=== PATIENT | female | born 1990 | race Caucasian/White ===

== ENCOUNTER 2020-04-17 15:45 | Outpatient (REF) | payer OTHER, SELFPAY | END 2020-04-17 15:46 | disposition home or self-care (01) | LOC: HO.LAB 15:45 | PROVIDERS: Visit Provider Internal Medicine | DX: Z20.822 Contact with and (suspected) exposure to COVID-19 (principal) | CPT/HCPCS: 36415; C9803; U0003; U0005 ==

== ENCOUNTER → 2020-07-17 15:33 | Outpatient (BNVA) | payer OTHER, SELFPAY | PROVIDERS: PCP Internal Medicine; Referring Provider Internal Medicine; Visit Provider Physician Assistant ==

== ENCOUNTER → 2020-07-24 11:20 | Outpatient (BNVA) | payer OTHER, SELFPAY | PROVIDERS: PCP Internal Medicine; Visit Provider Surgery ==

== ENCOUNTER 2020-08-02 15:25 | Outpatient (REF) | payer OTHER, SELFPAY ==
[2020-08-03 14:17] LABS: H Pylori Breath Test NOT DETECTED (NOT DETECTED)
== END 2020-08-02 15:26 | disposition home or self-care (01) ==
LOC: HO.LNP 15:25
PROVIDERS: Surgery; PCP Internal Medicine; Visit Provider Physician Assistant
DX: E66.01 Morbid (severe) obesity due to excess calories (principal); F32.9 Major depressive disorder, single episode, unspecified; F41.9 Anxiety disorder, unspecified; M79.7 Fibromyalgia
CPT/HCPCS: 83013; 99211

== ENCOUNTER 2020-08-03 09:40 | Outpatient (REF) | payer OTHER, SELFPAY ==
--- NOTE | ~2020-08-03 | XR_ITS ---
EXAMINATION: XR CHEST CLINICAL INFORMATION: Morbid/severe obesity. COMPARISON: None TECHNIQUE: 2 views of the chest were obtained. FINDINGS: No significant abnormality is noted involving the heart, lungs, mediastinum, bony thorax or soft tissues. XR/XR chest 2V IMPRESSION: Unremarkable chest examination.
[2020-08-03 10:59] LABS: MANUAL DIFF FLAG NO
[2020-08-03 11:02] LABS: Basophils Percent Auto 0.4 % (0-2); Eosinophils Absolute Auto 0.1 X10*3/uL (0.0-0.4); Eosinophils Percent Auto 0.9 % (0-4); Hematocrit 38.1 % (37-47); Hemoglobin 11.6 g/dl (12.0-16.0); Imm Gran Abs Auto 0.02 X10*3/uL (0.00-0.03); Imm Gran Pct Auto 0.3 % (0.0-0.4); Lymphocytes Absolute Auto 1.6 X10*3/uL (1.2-4.9); Lymphocytes Percent Auto 20.2 % (20-40); Mean Corpuscular HGB Conc 30.4 g/dl (31.0-35.0); Mean Corpuscular Hemoglobin 23.7 pg (27.0-33.0); Mean Corpuscular Volume 77.9 fL (80-98); Mean Platelet Volume 9.1 fL (9.4-12.3); Monocytes Absolute Auto 0.5 X10*3/uL (0.1-1.2); Neutrophils Absolute Auto 5.6 X10*3/uL (2.0-8.3); Neutrophils Percent Auto 72.2 % (45-73); Platelet Count 403 X10*3/uL (160-400); Red Blood Count 4.89 X10*6/uL (4.20-5.50); Red Cell Distribution Width 15.2 % (11.0-16.0); White Blood Count 7.8 X10*3/uL (4.8-10.8)
[2020-08-03 11:10] LABS: Estimated Average Glucose 111 mg/dL; Hemoglobin A1c % 5.5 %
[2020-08-03 11:19] LABS: Alanine Aminotransferase 26 U/L (0-31); Albumin Level 4.5 g/dL (3.5-5.0); Alkaline Phosphatase 79 U/L (39-117); Anion Gap 12 (12-20); Aspartate Amino Transferase 21 U/L (5-31); Bilirubin Total 0.8 mg/dL (0.0-1.0); Blood Urea Nitrogen 14 mg/dL (9-16); C Reactive Protein 1.46 mg/dL (< or = 0.50); Calcium 9.5 mg/dL (8.4-10.2); Carbon Dioxide 27 mmol/L (22-29); Chloride 103 mmol/L (96-108); Cholesterol 166 mg/dL; Estimated Glomerular Filt Rate > 60; Glucose Random 100 mg/dL (60-115); HDL Cholesterol 47 mg/dL; Iron 25 mcg/dL (30-160); LDL Cholesterol Calculated 94 mg/dl; Percent Iron Saturation 5 % (15-50); Potassium 4.4 mmol/L (3.3-5.1); Sodium 138 mmol/L (135-145); Total Iron Binding Capacity 487 mcg/dL (228-428); Total Protein 7.5 g/dL (6.5-8.0); Triglycerides 126 mg/dL; Unsaturated Iron Binding 462 ug/dL
[2020-08-03 11:41] LABS: Ferritin 6 ng/mL (10-122); TSH reflex Free T4 1.38 uIU/mL (0.32-4.0); Vitamin D 25-OH Total 19.8 ng/mL (>30)
[2020-08-06 03:53] LABS: Vitamin B12 468 pg/mL (200-900)
[2020-08-06 13:33] LABS: Insulin Level Total 18.7 uIU/mL
[2020-08-06 13:56] LABS: Calcium (PTHI) 9.4 mg/dL (8.6-10.2); PTHI 44 pg/mL (14-64)
[2020-08-06 20:47] LABS: Zinc 74 mcg/dL (60-130)
[2020-08-18 06:53] LABS: Vitamin B1 10
== END 2020-08-03 09:41 | disposition home or self-care (01) ==
LOC: HO.LAB 09:40
PROVIDERS: PCP Internal Medicine; Visit Provider Surgery
DX: E66.01 Morbid (severe) obesity due to excess calories (principal); F32.9 Major depressive disorder, single episode, unspecified; F41.9 Anxiety disorder, unspecified; M79.7 Fibromyalgia
CPT/HCPCS: 36415; 71046; 80053; 80061; 82306; 82607; 82728; 82746; 83036; 83525; 83540; 83970; 84425; 84443; 84590; 84630; 85025; 86140

== ENCOUNTER → 2020-08-07 15:34 | Outpatient (REF) | payer OTHER, SELFPAY ==
--- NOTE | 2020-08-07 15:40 | ECG_ITS ---
Test Reason : MORBID OBESITY Blood Pressure : / mmHG Vent. Rate : 087 BPM Atrial Rate : 087 BPM P-R Int : 122 ms QRS Dur : 078 ms QT Int : 352 ms P-R-T Axes : 041 063 034 degrees QTc Int : 423 ms Normal sinus rhythm Normal ECG When compared to the previous EKG of No significant changes seen Referred By: Erick Junior Electronically Signed By:Shoaib Mc
== END ==
LOC: HO.CARD 15:34
PROVIDERS: Visit Provider Surgery
DX: E66.01 Morbid (severe) obesity due to excess calories (principal); F32.9 Major depressive disorder, single episode, unspecified; F41.9 Anxiety disorder, unspecified; M79.7 Fibromyalgia
CPT/HCPCS: 93005

== ENCOUNTER → 2020-08-13 08:06 | Outpatient (BNVA) | payer OTHER, SELFPAY | PROVIDERS: PCP Internal Medicine; Visit Provider Surgery ==

== ENCOUNTER → 2020-08-16 08:18 | Outpatient (BNVA) | payer OTHER, SELFPAY | PROVIDERS: PCP Internal Medicine; Visit Provider Dietitian, Registered | DX: E66.01 Morbid (severe) obesity due to excess calories (principal); Z68.41 Body mass index [BMI] 40.0-44.9, adult | CPT/HCPCS: 97802 ==

== ENCOUNTER 2020-08-22 08:39 | Outpatient (REF) | payer OTHER, SELFPAY ==
--- NOTE | ~2020-08-22 | FL_ITS ---
EXAMINATION: XR GI SERIES CLINICAL INFORMATION: Morbid/severe obesity. COMPARISON: None TECHNIQUE: Routine upper GI air contrast study was performed. FINDINGS: Following oral administration of thick barium and effervescent granules there is normal propagation of bolus from the oral cavity through the pharynx, esophagus into stomach without any evidence of obstruction, narrowing or stricture. On placing patient supine and prone lying the course, caliber and the peristalsis in the stomach and duodenum is normal. There is no gastric erosions, mucosal thickening or ulceration. There is mild gastroesophageal reflux without hiatal hernia. There is evidence of previous cholecystectomy. FLUOROSCOPY TIME: 2.7 minutes. DOSE AREA PRODUCT: 61.716 uGy-m2 (microgray-meter squared). FL/FL upper GI series IMPRESSION: Moderate gastroesophageal reflux without hiatal hernia. Rest of the upper GI exam is unremarkable.
--- NOTE | ~2020-08-22 | US_ITS ---
EXAMINATION: US COMPLETE ABDOMEN WITH LIVER ELASTOGRAPHY CLINICAL INFORMATION: Obesity COMPARISON: None. TECHNIQUE: Real-time imaging of the abdominal viscera. Noninvasive ultrasound liver fibrosis assessment is performed using Caro ElastPQ point quantification shear wave elastography (pSWE) with a C5-2 MHz transducer. Multiple elastography samples are obtained. FINDINGS: PANCREAS: The visualized pancreatic head and body are normal in appearance. The remainder of the pancreas is obscured from visualization by the overlying bowel gas. ABDOMINAL AORTA: The proximal, middle, and distal aortic segments are normal in caliber. INFERIOR VENA CAVA: Visualized portions are normal. LIVER: Normal. The liver demonstrates normal size, contour and echogenicity. No focal lesion or intrahepatic biliary duct dilatation. The right lobe measures 16 cm in length. The left lobe measures 11 cm in length. Portal flow is normal/hepatopedal Shear wave liver elastography median stiffness is 1.4 m/s (reference: normal median stiffness is 1.3 m/s or less). IQR/median stiffness to assess sampling precision is 0.14 (reference: good quality data set is IQR/median stiffness of 0.15 or less). GALLBLADDER: Surgically removed. COMMON BILE DUCT: Normal in caliber measuring 0.5 cm in diameter. RIGHT KIDNEY: Normal. No hydronephrosis. No renal calculi or focal parenchymal lesions. The kidney measures 10.7 cm in maximum dimension. LEFT KIDNEY: Normal. No hydronephrosis. No renal calculi or focal parenchymal lesions. The kidney measures 10.4 cm in maximum dimension. SPLEEN: Normal. The spleen measures 10 cm in maximum dimension. FREE FLUID: None. US/US abdomen comp w elastography IMPRESSION: 1. Impression: Limited visualization of the tail of the pancreas. Post cholecystectomy. Otherwise unremarkable exam. 2. Liver elastography: Adequate liver sampling. In the absence of other known clinical findings, rule out compensated advanced chronic liver disease. REFERENCE: Society of Radiologists in Ultrasound Liver Stiffness Thresholds (2020): LIVER STIFFNESS THRESHOLDS: *Liver Stiffness equal or less than 1.3 m/s: High probability of being normal. *Liver Stiffness less than 1.7 m/s: In the absence of other known clinical signs, rules out compensated advanced chronic liver disease. *Liver Stiffness 1.7-2.1 m/s: Suggestive of compensated advanced chronic liver disease but need further test for confirmation. *Liver Stiffness over 2.1 m/s: Rules in compensated advanced chronic liver disease. *Liver Stiffness over 2.4 m/s: Suggestive of clinically significant portal hypertension. QUALITY OF DATA SET: *IQR/Median value equal or less than 0.15 implies a quality data set. *IQR/Median value over 0.15 implies a poor quality data set. SIGNIFICANT CHANGE FROM PRIOR EXAM: Significant change if liver stiffness measurement is 10% or greater from prior exam. OTHER CONSIDERATIONS: The stage of liver fibrosis may be overestimated in the setting of acute hepatitis, liver inflammation, elevated liver function tests, hepatic vascular congestion, obstructive cholestasis, non-fasting state, and infiltrative diseases such as amyloidosis and lymphoma. In some patients with NAFLD, the liver stiffness thresholds for compensated advanced chronic liver disease may be lower. In causes other than viral hepatitis and NAFLD, liver stiffness thresholds are not well established.
== END 2020-08-22 08:40 | disposition home or self-care (01) ==
LOC: HO.US 08:39
PROVIDERS: Visit Provider Surgery
DX: Z01.818 Encounter for other preprocedural examination (principal); E66.01 Morbid (severe) obesity due to excess calories; K21.9 Gastro-esophageal reflux disease without esophagitis; F41.9 Anxiety disorder, unspecified; M79.7 Fibromyalgia
CPT/HCPCS: 74240; 76705; 76981

== ENCOUNTER → 2020-08-27 09:12 | Outpatient (BNVA) | payer OTHER, SELFPAY | PROVIDERS: PCP Internal Medicine; Visit Provider Dietitian, Registered | DX: E66.9 Obesity, unspecified (principal) | CPT/HCPCS: 97803 ==

== ENCOUNTER → 2020-09-18 08:00 | Outpatient (BNVA) | payer OTHER, SELFPAY | PROVIDERS: PCP Internal Medicine; Visit Provider Surgery ==

== ENCOUNTER → 2020-10-28 07:24 | Outpatient (BNVA) | payer OTHER, SELFPAY | PROVIDERS: PCP Internal Medicine; Visit Provider Surgery ==

== ENCOUNTER → 2020-11-18 08:28 | Outpatient (BNVA) | payer OTHER, SELFPAY | PROVIDERS: PCP Internal Medicine; Visit Provider Surgery ==

== ENCOUNTER → 2020-11-22 13:18 | Outpatient (BNVA) | payer OTHER, SELFPAY | PROVIDERS: PCP Internal Medicine; Referring Provider Internal Medicine; Visit Provider Physician Assistant ==

== ENCOUNTER 2020-11-26 06:06 | Inpatient (IN) | payer OTHER, SELFPAY ==
[2020-11-19 09:47] LABS: MANUAL DIFF FLAG NO
[2020-11-19 09:55] LABS: Basophils Percent Auto 0.3 % (0-2); Eosinophils Absolute Auto 0.1 X10*3/uL (0.0-0.4); Eosinophils Percent Auto 0.9 % (0-4); Hematocrit 39.6 % (37-47); Hemoglobin 12.4 g/dl (12.0-16.0); Imm Gran Abs Auto 0.02 X10*3/uL (0.00-0.03); Imm Gran Pct Auto 0.3 % (0.0-0.4); Lymphocytes Absolute Auto 1.6 X10*3/uL (1.2-4.9); Lymphocytes Percent Auto 21.8 % (20-40); Mean Corpuscular HGB Conc 31.3 g/dl (31.0-35.0); Mean Corpuscular Hemoglobin 24.3 pg (27.0-33.0); Mean Corpuscular Volume 77.6 fL (80-98); Mean Platelet Volume 9.5 fL (9.4-12.3); Monocytes Absolute Auto 0.4 X10*3/uL (0.1-1.2); Monocytes Percent Auto 5.3 % (2-11); Neutrophils Absolute Auto 5.3 X10*3/uL (2.0-8.3); Neutrophils Percent Auto 71.4 % (45-73); Platelet Count 341 X10*3/uL (160-400); Red Cell Distribution Width 15.8 % (11.0-16.0); White Blood Count 7.4 X10*3/uL (4.8-10.8)
[2020-11-19 10:01] LABS: Prothrombin Time 11.6 SEC (9.9-13.0)
[2020-11-19 10:04] LABS: Partial Thromboplastin Time 33.7 SEC (24.1-38.0)
[2020-11-19 10:07] LABS: Estimated Average Glucose 108 mg/dL; Hemoglobin A1c % 5.4 %
[2020-11-19 10:13] LABS: Alanine Aminotransferase 15 U/L (0-31); Albumin Level 4.4 g/dL (3.5-5.0); Alkaline Phosphatase 79 U/L (39-117); Anion Gap 14 (12-20); Aspartate Amino Transferase 15 U/L (5-31); Bilirubin Total 1.9 mg/dL (0.0-1.0); Blood Urea Nitrogen 14 mg/dL (9-16); C Reactive Protein 2.28 mg/dL (< or = 0.50); Carbon Dioxide 27 mmol/L (22-29); Chloride 104 mmol/L (96-108); Cholesterol 171 mg/dL; Estimated Glomerular Filt Rate > 60; Glucose Random 90 mg/dL (60-115); HDL Cholesterol 41 mg/dL; LDL Cholesterol Calculated 101 mg/dl; Sodium 140 mmol/L (135-145); Total Protein 7.4 g/dL (6.5-8.0); Triglycerides 145 mg/dL
[2020-11-19 10:38] LABS: TSH reflex Free T4 2.28 uIU/mL (0.32-4.0)
[2020-11-20 10:52] VITALS: BMI 38.2
[2020-11-20 18:22] LABS: Insulin Level Total 17.9 uIU/mL
[2020-11-25 00:57] LABS: Vitamin A 36 mcg/dL (38-98)
--- NOTE | 2020-11-25 09:42 | HO.ANESPROP2 ---
Documented by User: Wendy Motley NP 11/25/20 09:43 HPI - Anesthesia Eval Consult details Narrative: 30yo F for Gastrectomy Sleeve, EGD, Poss Diaphragmatic Hernia, Poss Ventral Hernia, Poss open PMFSH Active Problems Active Problems: All Active Problems (Updated 10/28/20 @ 14:51 by Erick Junior MD) BMI 38.0-38.9,adult (Acute) BMI 39.0-39.9,adult (Acute) MDD (major depressive disorder), recurrent episode, moderate (Acute) Vitamin B12 deficiency (Acute) Anemia (Acute) Back pain (Acute) Morbid obesity (Acute) Tinea versicolor (Acute) Annual physical exam (Acute) Anxiety and depression (Acute) Fibromyalgia (Acute) Vitamin D deficiency (Acute) Obesity (Acute) Past Medical History Medical History (Updated 10/28/20 @ 14:51 by Erick Junior MD) Back pain Family history of breast cancer Morbid obesity Family History Family History (Updated 07/24/20 @ 11:33 by CAROLEE Esquivel) Maternal Grandfather Myocardial infarct Mother Breast cancer Maternal Grandmother Breast cancer Maternal Aunt Breast cancer Maternal Grandfather Colon cancer Maternal Uncle Substance abuse Father No problems noted. Sister Arthritis Surgical History Surgical History (Updated 07/24/20 @ 11:32 by CAROLEE Esquivel) Acute meniscal tear of right knee History of cholecystectomy Social History Social History (Updated 11/20/20 @ 10:52 by Rylee Unger RN) Are you a primary animal care worker to a significant other at home: No Do you presently have visiting nurse or other home services: No Alcohol intake: never Patient Tobacco Use Status: Never used Tobacco Use of substances other than those prescribed or required for medical reasons: No Have you been hit, kicked, punched, or otherwise hurt by someone within the past year? If so, by whom?: No Are you DNR?: No Advance Directives: No Advance Directives Information Provided: No Advance Directives on File: No Patient : No FDLMP: 11/13/2020 : No Poor oral hygiene: No Meds Allergies Allergy/AdvReac Type Severity Reaction Status Date / Time No Known Allergies Allergy Verified 11/20/20 10:51 [No Known Allergies*] Home Medications Medication Instructions Recorded Confirmed Last Taken Type bupropion HCl 150 mg 24 hr tablet, 150 mg PO QAM 05/31/20 11/20/20 Unknown History extended release cyclobenzaprine 5 mg tablet 5 mg PO TID PRN 05/31/20 11/18/20 Unknown History gabapentin 100 mg capsule 100 mg PO BID 05/31/20 11/18/20 Unknown History naproxen 500 mg tablet 500 mg PO BID 05/31/20 11/18/20 Unknown History hydrocortisone 2.5 % topical TOPICAL 11/26/20 Unknown History ointment ketoconazole 2 % topical cream appl TOPICAL TID 11/26/20 Unknown History Exam Exam Date and Time: November 25, 2020 0942 Height,Weight and Vital Signs: Height 5 ft 3 in Weight 97.976 kg Pertinent Lab Results Pertinent Lab Results: Laboratory Tests 11/19/20 11/19/20 11/19/20 08:35 08:35 Unknown WBC 7.4 RBC 5.10 Hgb 12.4 Hct 39.6 MCV 77.6 L MCH 24.3 L MCHC 31.3 RDW 15.8 Plt Count 341 MPV 9.5 Immature Gran % (Auto) 0.3 Neut % (Auto) 71.4 Lymph % (Auto) 21.8 Arroyo % (Auto) 5.3 Eos % (Auto) 0.9 Baso % (Auto) 0.3 Lymph # (Auto) 1.6 Arroyo # (Auto) 0.4 Eos # (Auto) 0.1 Baso # (Auto) 0.0 Abs Immat Gran (auto) 0.02 Absolute Neuts (auto) 5.3 Absolute Nucleated RBC 0.000 Nucleated RBC % (auto) 0.0 PT 11.6 INR 1.0 APTT 33.7 Sodium Potassium Chloride Carbon Dioxide Anion Gap BUN Creatinine Estim Creat Clear Calc Estimated GFR Random Glucose Estimat Average Glucose Hemoglobin A1c % Total Insulin Calcium Total Bilirubin AST ALT Alkaline Phosphatase C-Reactive Protein Total Protein Albumin Triglycerides Cholesterol LDL Cholesterol, Calc HDL Cholesterol Vitamin A TSH Blood Type AB Positive Antibody Screen NEGATIVE 11/19/20 11/19/20 11/19/20 Unknown Unknown Unknown WBC RBC Hgb Hct MCV MCH MCHC RDW Plt Count MPV Immature Gran % (Auto) Neut % (Auto) Lymph % (Auto) Arroyo % (Auto) Eos % (Auto) Baso % (Auto) Lymph # (Auto) Arroyo # (Auto) Eos # (Auto) Baso # (Auto) Abs Immat Gran (auto) Absolute Neuts (auto) Absolute Nucleated RBC Nucleated RBC % (auto) PT INR APTT Sodium 140 Potassium 5.0 Chloride 104 Carbon Dioxide 27 Anion Gap 14 BUN 14 Creatinine 0.82 Estim Creat Clear Calc TNP Estimated GFR > 60 Random Glucose 90 Estimat Average Glucose 108 Hemoglobin A1c % 5.4 Total Insulin Calcium 10.0 Total Bilirubin 1.9 H AST 15 ALT 15 Alkaline Phosphatase 79 C-Reactive Protein 2.28 H Total Protein 7.4 Albumin 4.4 Triglycerides 145 Cholesterol 171 LDL Cholesterol, Calc 101 HDL Cholesterol 41 Vitamin A 36 L TSH 2.28 Blood Type Antibody Screen 11/19/20 Unknown WBC RBC Hgb Hct MCV MCH MCHC RDW Plt Count MPV Immature Gran % (Auto) Neut % (Auto) Lymph % (Auto) Arroyo % (Auto) Eos % (Auto) Baso % (Auto) Lymph # (Auto) Arroyo # (Auto) Eos # (Auto) Baso # (Auto) Abs Immat Gran (auto) Absolute Neuts (auto) Absolute Nucleated RBC Nucleated RBC % (auto) PT INR APTT Sodium Potassium Chloride Carbon Dioxide Anion Gap BUN Creatinine Estim Creat Clear Calc Estimated GFR Random Glucose Estimat Average Glucose Hemoglobin A1c % Total Insulin 17.9 Calcium Total Bilirubin AST ALT Alkaline Phosphatase C-Reactive Protein Total Protein Albumin Triglycerides Cholesterol LDL Cholesterol, Calc HDL Cholesterol Vitamin A TSH Blood Type Antibody Screen Narrative Narrative: EKG 08/2020 Vent. Rate : 087 BPM ? ? Atrial Rate : 087 BPM ?? P-R Int : 122 ms? QRS Dur : 078 ms ? ? QT Int : 352 ms ? ? ? P-R-T Axes : 041 063 034 degrees ?? QTc Int : 423 ms ? Normal sinus rhythm Normal ECG When compared to the previous EKG of No significant changes seen ? Assessment and Plan Assessment Anesthesia Assessment: Chart Reviewed Documented by User: Ketty Davalos MD 11/26/20 07:31 [facility] Active Problems Active Problems: All Active Problems (Updated 10/28/20 @ 14:51 by Erick Junior MD) BMI 38.0-38.9,adult (Acute) BMI 39.0-39.9,adult (Acute) MDD (major depressive disorder), recurrent episode, moderate (Acute) Vitamin B12 deficiency (Acute) Anemia (Acute) Back pain (Acute) Morbid obesity (Acute) Tinea versicolor (Acute) Annual physical exam (Acute) Anxiety and depression (Acute) Fibromyalgia (Acute) Vitamin D deficiency (Acute) Obesity (Acute). Denies h/o JOSÉ ANTONIO Past Medical History Medical History (Updated 10/28/20 @ 14:51 by Erick Junior MD) Back pain Family history of breast cancer Morbid obesity Family History Family History (Updated 07/24/20 @ 11:33 by Brian Hart Catarina) Maternal Grandfather Myocardial infarct Mother Breast cancer Maternal Grandmother Breast cancer Maternal Aunt Breast cancer Maternal Grandfather Colon cancer Maternal Uncle Substance abuse Father No problems noted. Sister Arthritis Family history of problems with anesthesia: No Surgical History Surgical History (Updated 07/24/20 @ 11:32 by CAROLEE Esquivel) Acute meniscal tear of right knee History of cholecystectomy History of Problems with Anesthesia: No Social History Social History (Updated 11/20/20 @ 10:52 by Rylee Unger RN) Are you a primary animal care worker to a significant other at home: No Do you presently have visiting nurse or other home services: No Alcohol intake: never Patient Tobacco Use Status: Never used Tobacco Use of substances other than those prescribed or required for medical reasons: No Have you been hit, kicked, punched, or otherwise hurt by someone within the past year? If so, by whom?: No Are you DNR?: No Advance Directives: No Advance Directives Information Provided: No Advance Directives on File: No Patient : No FDLMP: 11/13/2020 : No Poor oral hygiene: No Meds Allergies Allergy/AdvReac Type Severity Reaction Status Date / Time No Known Allergies Allergy Verified 11/20/20 10:51 [No Known Allergies*] Home Medications Medication Instructions Recorded Confirmed Last Taken Type bupropion HCl 150 mg 24 hr tablet, 150 mg PO QAM 05/31/20 11/20/20 Unknown History extended release cyclobenzaprine 5 mg tablet 5 mg PO TID PRN 05/31/20 11/18/20 Unknown History gabapentin 100 mg capsule 100 mg PO BID 05/31/20 11/18/20 Unknown History naproxen 500 mg tablet 500 mg PO BID 05/31/20 11/18/20 Unknown History hydrocortisone 2.5 % topical TOPICAL 11/26/20 Unknown History ointment ketoconazole 2 % topical cream appl TOPICAL TID 11/26/20 Unknown History Exam Height,Weight and Vital Signs: Height 5 ft 3 in Weight 97.976 kg Vital Signs Temp Pulse Resp BP Pulse Ox 11/26/20 06:37 97.9 F 80 16 124/77 98 Airway Mallampati Class: III TM Dist: >3cm Neck ROM: Full Loose/Missing/Broken Teeth: Yes (Missing top right ) Heart: RRR Lungs: CTAB Assessment and Plan Assessment Anesthesia Assessment: Anesthesia Plan Discussed Final Anesthetic Review Family History of Problems with Anesthesia: No History of Problems with Anesthesia: No NPO: Yes ASA Class: III Final Preanesthetic Review: No Changes in Pt Med Stat, Meds/Allgs Chart Reviewed, Consent Obtained/Reviewed and Anes Risks/Benef Reviewed Patient Risk: Intermediate Procedure Risk: Intermediate Assessment/Block/Sedation in SS: Assess/Block/Sedation- Anesthetic Plan Anesthetic Plan: GA Disposition: Standard PACU
[2020-11-26] VITALS (14 sets, daily range): BP systolic 115–144; BP diastolic 62–87; PULSE 73–108; RESP 14–18; TEMP 36.1–36.8; O2SAT 95–100
--- NOTE | ~2020-11-26 | XR_ITS ---
EXAMINATION: XR CHEST CLINICAL INFORMATION: Lytic or psychosis. COMPARISON: Normal chest x-ray 08/03/2020 TECHNIQUE: 2 views of the chest were obtained. FINDINGS: No significant abnormality is noted involving the heart, lungs, mediastinum, bony thorax or soft tissues. XR/XR chest 2V IMPRESSION: Unremarkable chest examination.
--- NOTE | 2020-11-26 05:59 | MHC.SHP ---
Pre-Procedural Eval Section A Date of Service: 11/26/20 The patient is an INPATIENT: Yes The History & Physical has been completed within 30 days and I have reviewed it.: Yes Section B Chief Complaint: Obesity Relevant Family History (Specify if Yes): No Relevant Social History: None Present Medications: see Short Stay Collaborative assessment Medical History: No relevant PMH History of Previous Operations: No relevant previous surgery Allergies: Allergies Allergy/AdvReac Type Severity Reaction Status Date / Time No Known Allergies Allergy Verified 11/20/20 10:51 [No Known Allergies*] Review of Systems Sugical H&P ROS: Negative: Constitution, Cardiovascular, Respiratory, Neurological, Psychiatric, Hem-Onc, Allergic/Immunologic, Gastrointestinal, Genitourinary, Musculoskeletal, Integumentary, Endocrine and Eyes/Ears/Nose/Throat Exam Surgical H&P Exam: Normal: HEENT, Normal: Heart, Normal: Lungs, Normal: Extremities, Normal: Abdomen, Normal: Skin and Normal: Neurological Plan Diagnosis/Plan: Unchanged I have reviewed the history and physical and performed a pertinent physical examination on my patient. No changes have occurred unless specified.
[2020-11-26 06:37] LABS: UPreg QC Valid YES; Urine Pregnancy NEGATIVE (NEGATIVE)
[2020-11-26 06:51] LABS: COVID-19 Test Negative (Negative)
[2020-11-26] MEDS: Lactated Ringers 1,000 ML 100 ML IVCONT (06:57)
[2020-11-26] MEDS: Lactated Ringers 1,000 ML 999 ML IV (06:57)
--- NOTE | 2020-11-26 10:26 | PM.OP ---
Brief Operative Note Date of Service: 11/26/20 Pre-op diagnosis: Severe obesity with comorbidities (see below) Post-op diagnosis: same Procedure: INITIAL PATIENT BMI ON PRESENTATION AT OUR OFFICE: 41 kg/m2 LAST BMI BEFORE SURGERY: 38.5 kg/m2 COMORBIDITIES: depression, GERD, fibromyalgia The patient participated in an intensive weekly lifestyle ?intervention and exercise program during which the patient ?has lost between the initial office visit and the last preoperative visit 24.5 lbs, or 10.15% of initial actual body weight. The patient met the BMI-criteria for bariatric surgery based on the BMI on initial presentation. The patient should not be penalized for achieving such weight loss because ?it is not sustainable long-term without surgical intervention and it was achieved in preparation for bariatric surgery ?under my direction and based on my published research ([email or web address]) ?that a 10% preoperative weight loss improves long-term weight loss after surgery and reduces perioperative complications.? Insurance carriers such as [facility] have endorsed my recommendations ?and have included in their policies criteria to include a 10% preoperative weight loss requirement. PROCEDURE: Esophago-gastroscopy, laparoscopic sleeve gastrectomy and laparoscopic gastropexy INDICATIONS: This is a 30 year-old female who was electively scheduled for laparoscopic, possibly open sleeve gastrectomy. The risks and complications of the procedure were discussed with the patient in advance, particularly the possibility of ; pulmonary embolism; staple line leak; bleeding; GERD; cardiac, pulmonary, or renal complications; as well as long-term problems such as insufficient weight loss, vitamin deficiency, strictures, or ulcers. The patient understood all the risks, and was in agreement to proceed with surgery. DESCRIPTION OF PROCEDURE: After informed consent was obtained from the patient, the patient was given preoperative antibiotics, and was transferred to the operating room. After successful induction of general anesthesia, pneumatic compressive devices were placed on both lower extremities. An upper endoscopy was performed next. The oropharynx and esophagus appeared to be within normal limits. There was a diaphragmatic hernia present of moderate size consistent with the findings of the preoperative upper GI. The stomach was entered. Then after all fluid and air were suctioned and the stomach was fully decompressed, the scope was withdrawn and secured in the mid esophagus. The patient was then prepped and draped in the usual sterile manner, and abdominal access was established at the right upper quadrant with the April technique. A 12 mm blunt port was inserted, and the abdomen was insufflated with CO2 to a pressure of 15 mmHg. Under direct visualization, additional ports were placed, specifically two 5 mm Versi-step ports to the left upper quadrant, and a 5 mm Versi-Step port to the right upper quadrant. 1% lidocaine plain was used to infiltrate all port sites as well as all fascia defects. Using the EndoClose suture passer device, we placed a #1 Polysorb tie across the falciform ligament in order to retract it up against the abdominal wall and prevent injury of the ligament with our instruments during the procedure. Following that, the patient was placed in a steep reverse Trendelenburg position. An additional 5 mm port was placed to the right flank for the Mediflex retractor that was used to retract the left lobe of the liver. The gastro-esophageal fat pad was opened with the ultrasonic device (Thunderbeat, Olympus) and the anterior esophagus and hiatus were exposed. The angle of His was opened with the ultrasonic device the fundus of the stomach from any diaphragmatic and splenic attachments. I then opened the gastrocolic ligament between the transverse colon and the greater curvature of the stomach with the ultrasonic device to enter the lesser sac and facilitate the ligation of the short gastric vessels. I started at a mid-point along the greater curvature and using the Thunderbeat, all short gastric vessels were divided all the way to the angle of His until the left mabel was completely dissected at its entirety. I then divided the gastro-colic ligament distally to a distance of about 3-4 cm proximal to the esophagus. The stomach was then divided transversely with one Endo ANNA MARIE-45 purple and four ANNA MARIE-60 articulating orange loads using the AEON stapler and loads. Every effort was made that the gastric sleeve had a tubular shape and an even caliber throughout. Once the sleeve resection was completed, the staple line of the gastric sleeve was reinforced with Hemoclips. The resected stomach was retrieved without difficulty from the April port. A gastropexy was then performed in order to prevent postoperative GERD and partial gastric volvulus. Several interrupted 2.0 Surgidac sutures were placed between the sleeve's staple line and the previously divided greater omentum and gastro-colic ligament using the Endo-Stitch device. ?An upper endoscopy was performed. There was no narrowing at the GE junction. The scope was easily advanced all the way to the pylorus which was clearly visualized. There was no narrowing anywhere and the sleeve's caliber was even throughout. The sleeve's staple line was inspected and there was no evidence of ischemia, bleeding or dehiscence. At that point the gastroscope was withdrawn from the patient?s mouth while we were decompressing the bowel and the stomach from any remaining air. I looked into the lesser sac to see how the sleeve was situating and it was situating well. There was no bleeding from the staple line, spleen, or short gastric vessels. The Mediflex retractor was removed, and the undersurface of the liver was inspected and there was no bleeding. The patient was placed in supine position. I closed the fascial defect of the 12 mm port site with a figure of eight #1 Polysorb suture. Then 100 cc 0.25 % Marcaine plain with 10 mg of Dexamethasone were used to infiltrate the fascial closure as well as all skin incisions. At this point, the abdomen was deflated, all ports were removed under direct vision, and no bleeding was noted from any of the port sites. The skin incisions were irrigated with saline and were closed with 4-0 absorbable monofilament sutures. Steri-Strips and OpSites were used to cover all incisions. The patient was extubated and was transferred in stable condition to the recovery room for further care. I was present and performed all parts of the procedure. Ms. Figueredo was the financial administrative assistant. There were no residents to assist with this case. Silvestre Junior MD, PhD, FACS Surgeon: Erick Junior MD Anesthesia: GETA, local and other (TAP block) Was an Bobbin Presser used for this Procedure?: Yes Bobbin Presser: Sourav Wu Estimated blood loss (mL): 10 IV fluids (mL): 1,800 Urine output (mL): 0 (No Vera to record) Pathology: other (Stomach) Condition: stable Disposition: PACU
--- NOTE | 2020-11-26 10:31 | PM.PNGS ---
Subjective Subjective Date of Service: 11/26/20 Interval history: Patient has mild incisional pain, but was able to ambulate and use the incentive spirometer. She is tolerating phase 1 bariatric diet Physical Exam Vital Signs: Vital Signs: Last Vital Signs Temp 98.1 F 11/26/20 10:22 Pulse 108 H 11/26/20 10:22 Resp 16 11/26/20 10:22 BP 142/87 H 11/26/20 10:22 Pulse Ox 100 11/26/20 10:22 Body Mass Index 38.2 GI: Inspection: Yes normal to inspection and Yes incision (clean, dry and intact) Extrem: Right lower extremity: normal to inspection (no calf tenderness) Left lower extremity: normal to inspection (no calf tenderness) Progress Note: A&P Assessment and plan (1) Obesity: Status: Acute Assessment and Plan: s/p laparoscopic sleeve gastrectomy and gastropexy Doing well Check am labs. If OK, will discharge home? (2) BMI 38.0-38.9,adult: Status: Acute (3) S/P laparoscopic sleeve gastrectomy: Status: Acute (4) Back pain: Status: Acute (5) Anxiety and depression: Status: Acute (6) Fibromyalgia: Status: Acute (7) GERD (gastroesophageal reflux disease): Status: Acute Fall Risk Details Current Medications: Current Medications Fentanyl (Fentanyl Citrate/Pf 100 Mcg/2 Ml Vial) 25 mcg IVPUSH Q5M PRN; Protocol PRN Reason: Pain, Moderate (Pain Scale 4-6 Hydromorphone HCl (Hydromorphone Hcl 0.5 Mg/0.5 Ml Syringe) 0.25 mg IVPUSH Q5M PRN; Protocol PRN Reason: Pain, Severe (Pain Scale 7-10) Lactated Ringer's (Lr) 1,000 mls @ 100 mls/hr IVCONT .Q10H [facility] Last Admin: 11/26/20 06:57 Dose: 100 mls/hr Documented by: Promethazine HCl 6.25 mg/ (Sodium Chloride) 50.25 mls @ 201 mls/hr IV ONCE PRN PRN Reason: Nausea and Vomiting Ondansetron HCl (Ondansetron Hcl 4 Mg/2 Ml Vial) 4 mg IVPUSH ONCE PRN PRN Reason: Nausea and Vomiting Time Spent With Patient Time: Total time spent is greater than 50% in coordination of care (as documented) at patient's floor/unit and/or counseling patient: Quality Stroke Does the patient have a stroke diagnosis?: No VTE Prior VTE?: No VTE Risk Level:: Surgical - moderate VTE Device Contraindication: N/A - Device Ordered VTE Drug Contraindication: Treatment Not Indicated
--- NOTE | 2020-11-26 10:34 | P.DS_ITS ---
DS: Providers Provider Date of Service: 11/27/20 Date of admission: 11/26/20 06:06 Primary care physician: Dylan Jeter MD DS: Diagnosis Discharge Diagnosis (1) Obesity: Status: Acute (2) BMI 38.0-38.9,adult: Status: Acute (3) S/P laparoscopic sleeve gastrectomy: Status: Acute (4) Back pain: Status: Acute (5) Anxiety and depression: Status: Acute (6) Fibromyalgia: Status: Acute (7) GERD (gastroesophageal reflux disease): Status: Acute DS: Summary Hospital Course Hospital Course: ADMITTING DIAGNOSIS: morbid obesity, fibromyalgia, depression ? DISCHARGE DIAGNOSIS: same, s/p laparoscopic sleeve gastrectomy ? PAST SURGICAL HISTORY: laparoscopic Cholecysectomy ? PROCEDURE: upper endoscopy, laparoscopic sleeve gastrectomy ? DISCHARGE SUMMARY: ? History of Present Illness: ? The patient is a?30 year-old woman with a BMI of?42?kg/m2 and associated co- morbidities as described above. The patient had extensive work-up,lost?21.4 lbs preoperatively and was electively scheduled for laparoscopic, possible open sleeve gastrectomy and gastropexy. Risks and complications of the surgery were discussed with the patient in advance, particularly the possibility of , pulmonary embolism, anastomotic leak, bleeding, bowel injury, GERD, cardiac, renal or pulmonary complications. The patient understood all the risks and was in agreement with the surgical plan. ? Hospital Course: ? The patient underwent an uneventful laparoscopic sleeve gastrectomy with gastropexy on the day of admission. Postoperatively, the patient was transferred to the surgical floor. The patient received IV Acetaminophen and IV dilaudid for pain control. Patient was started on bariatric phase 1 diet POD #0. On postoperative day one, the patient was feeling well without nausea, vomiting, fevers, or tachycardia. She did have nausea and vomiting x 1 last night and given leukocytosis today, CXR and D dimer was sent. CXR was normal however D Dimer elevated. Will add Arixtra 2.5 mg sc daily x 10 days starting tomorrow. The patient had some mild incisional pain and the abdomen was soft. ? On the morning of postoperative day one, the patient was continued on 1 ounce of water or ice every half hour. During the day, the patient did fairly well, having some incisional pain, but able to ambulate adequately and to tolerate liquids well. ? Since the patient is doing well, we decided that the patient was ready to be discharged. The patient was given instructions to follow-up with me next week and to call my office for any fever over 101, persistent abdominal pain, nausea, vomiting, GERD, symptoms of DVT such as calf tenderness, or leg swelling, or pulmonary embolism such as chest pain or shortness of breath. The patient was also instructed to drink 40-60 ounces of liquids per day using the 1-ounce cups. The patient had been given prescriptions for Tylenol for pain, Zofran prn for nausea, and pantoprazole and carafate previously. The patient was encouraged to ambulate and use the incentive spirometer. The patient was allowed to shower, but no baths, and encouraged to stay active at home. All of these instructions were given to the patient personally. All questions were answered and the patient understood all instructions, the instructions were also given to the patient in print. Time Spent with Patient Time attestation: Total time spent providing and/or coordinating discharge services: Discharge coordination time: Less than 30 minutes Quality: Stroke Does the patient have a stroke diagnosis?: No Physical Exam Vital Signs: Vital Signs: Last Vital Signs Temp 98.1 F 11/26/20 10:22 Pulse 108 H 11/26/20 10:22 Resp 16 11/26/20 10:22 BP 142/87 H 11/26/20 10:22 Pulse Ox 100 11/26/20 10:22 Body Mass Index 38.2 DS: Data Data Completed and Pending Pending studies at discharge: Pending at discharge 11/26/20 09:24 Surgical [PTH] Routine Labs on day of discharge: Laboratory Results - last 24 hr 11/26/20 11/26/20 06:18 06:35 Urine Test NEGATIVE COVID-19 ([facility]) Negative COVID-19 Clin Com See Note Discharge Plan Discharge Anticipated Discharge Date/Time: 11/27/20 10:27 Patient Disposition: Home, Self-Care Discharge Diagnosis: s/p sleeve gastrectomy Referrals: Dylan Jeter MD [Primary Care Provider] - 1 Week Discharge Medications: New fondaparinux [Arixtra] 2.5 mg/0.5 mL syringe 2.5 mg subcut DAILY 10 Days Qty: 5 RF: 0 Continued hydrocortisone 2.5 % ointment 1 appl topical BID PRN (Reason: Rash) RF: 0 ketoconazole 2 % cream 1 appl topical BID RF: 0 ketoconazole 2 % shampoo 1 appl topical DAILY RF: 0 ondansetron HCl [Zofran] 4 mg tablet 4 mg PO Q12H PRN (Reason: Nausea) RF: 0 bupropion HCl 150 mg tablet extended release 24 hr 150 mg PO QAM RF: 0 pantoprazole 40 mg tablet,delayed release (DR/EC) 40 mg PO DAILY Qty: 30 RF: 2 sucralfate 100 mg/mL suspension 10 ml PO BID Qty: 400 RF: 2 Discontinued Vitron-C 65 mg iron- 125 mg tablet,delayed release (DR/EC) 1 tab PO DAILY Qty: 30 RF: 2 cholecalciferol (vitamin D3) 125 mcg (5,000 unit) capsule 125 mcg PO DAILY Qty: 30 RF: 2 polyethylene glycol 3350 [Miralax] 17 gram powder in packet 17 g PO DAILY Qty: 14 RF: 0 Discharge Orders: Discharge Order (Routine); Ordered 11/27/20 Ordered By: Sourav Wu Diet: other Activity on Discharge: No heavy lifting Stand Alone Forms: Patient Portal Discharge page Care Plan Goals: weight loss Health Concerns: morbid obesity Plan of Treatment: No tub baths, sex or returning to work until discussed at first post op appoin tment. No exercise, alcohol, tobacco or illegal drug use. Continue to use incentive spirometer hourly while awake. Walk in home for 5- 10 minutes every 2 hours during the first week. Continue phase 3 diet until first post op appointment. Follow all instructions in the bariatric handbook and call with any questions.Discharge Instructions 1. Please call your doctor or come back to the emergency room should any new symptoms arise. 2. You will receive a courtesy call from [facility] 24-48 hours after discharge. 3. Activity: abstain from alcohol, practice limited stair climbing, no bending, no driving, no exercise, no illicit substances, no lifting, no sex, no tub bath, no work. 4. Diet: continue as discussed with Dr. Junior. 5. Dressing Change/Wound Care: Your incision is covered by surgical glue. If the area is tender, you may apply an ice pack for short intervals (no more than 20 minutes on, followed by at least 20 minutes off). Do not apply heat. Do not use creams, lotions, or topical antibiotics unless instructed to do so by your surgeon. These can cause infection or allergic reaction. 6. Call your doctor if: - Your temperature exceeds 101.5 F - You experience excessive pain or swelling - You have an unexpected reaction to medication - You have excessive bleeding - You experience continued vomiting/nausea - Your incision begins to separate - Your incision shows signs of infection such as increased redness, swelling, excessive pain, heat, or drainage (light blood or clear fluid is normal) 7. General instructions: No lifting greater than 5 lbs for the next 4 weeks[address] driving within 24 hours of taking narcotic pain medications. If you do not move your bowels in the next 2 days, please take milk of magnesia over the counter. Please follow the post op diet and do not advance your diet until you are seen in the office in about 2 weeks. Please walk around your home every hour or two to prevent blood clots from forming in your legs. You do not need to wake from sleeping to walk. Please sleep in a bed or couch to prevent kinking at the hips and knees. Please take your incentive spirometer (your lung assayer) home with you and use it for the next few days to prevent pneumonias. You may shower, no hot tubs, baths or swimming pools. Please call the office with any questions or concerns such as increasing abdominal pain, fever, chills, shortness of breath, chest pain, leg pain or swelling, or redness or drainage from your incisions. Please stay on stage 3 diet which includes sugar free clear liquids such as ice pops and jello and broth and crystal light. Avoid all carbonation. Please drink 3 protein shakes with at least 25-30 grams of protein daily or 3 of the Celebrate 4:1 shakes which can be purchased in our office. The Celebrate shakes have all of the bariatric vitamins you need if you consume these shakes. If you are drinking other protein shakes, you will need to purchase the Celebrate multivitamins and calcium that we provide in the office (they will provide all the vitamins you need). Please make sure you are consuming at least 40-60 ounces of water in addition to your 3 protein shakes daily. Do not hesitate to contact the office with any questions at . The patient's medical history has been reviewed and they are considered low risk for post op DVT and therefore DVT prophylaxis is not considered necessary. Travel after surgery was reviewed. The patient has not disclosed any travel plans during the first 30 days after surgery and they have been advised that within the first 30 days after surgery any bus, plane, train or car travel over 2 hours in duration is contraindicated due to the possibility of developing blood clots from immobility. Any travel, needs to include periods of ambulation of 10 minutes in duration every 2 hours.? The patient was instructed to discuss any plans for travel during this period with their bariatric surgeon. Assessment: stable post sleeve gastrectomy
[2020-11-26 11:20] LABS: Hematocrit 38.2 % (37-47); Hemoglobin 11.9 g/dl (12.0-16.0)
[2020-11-26] MEDS: Lactated Ringers 1,000 ML 125 ML IVCONT ×2 (11:39→20:16)
[2020-11-26] MEDS: Famotidine/PF 20 MG/2 ML VIAL IVPUSH ×2 (11:39→20:18)
[2020-11-26 11:53] LABS: Anion Gap 17 (12-20); Blood Urea Nitrogen 8 mg/dL (9-16); Calcium 8.7 mg/dL (8.4-10.2); Carbon Dioxide 22 mmol/L (22-29); Chloride 102 mmol/L (96-108); Creatinine Clr Calc Pharmacy 111.8; Estimated Glomerular Filt Rate > 60; Glucose Random 172 mg/dL (60-115); Potassium 3.7 mmol/L (3.3-5.1); Sodium 137 mmol/L (135-145)
[2020-11-26] MEDS: ceFAZolin Sodium/Dextrose,Iso 2 GM/50 ML PIGGYBACK IV (13:40)
[2020-11-26] MEDS: HYDROmorphone HCl 0.5 MG/0.5 ML SYRINGE 0.25 MG IVPUSH (16:08)
[2020-11-26] MEDS: ondansetron HCL 4 MG/2 ML VIAL IVPUSH (20:16)
[2020-11-27 04:00] VITALS: BP 145/81; PULSE 84; RESP 16; TEMP 37.4; O2SAT 96
[2020-11-27] MEDS: Lactated Ringers 1,000 ML 125 ML IVCONT (04:02)
[2020-11-27] MEDS: ondansetron HCL 4 MG/2 ML VIAL IVPUSH ×2 (04:10→12:18)
[2020-11-27 06:24] LABS: MANUAL DIFF FLAG NO
[2020-11-27 06:38] LABS: Basophils Percent Auto 0.1 % (0-2); Hematocrit 34.2 % (37-47); Hemoglobin 10.6 g/dl (12.0-16.0); Imm Gran Abs Auto 0.08 X10*3/uL (0.00-0.03); Imm Gran Pct Auto 0.5 % (0.0-0.4); Lymphocytes Percent Auto 5.8 % (20-40); Mean Corpuscular Hemoglobin 24.4 pg (27.0-33.0); Mean Corpuscular Volume 78.6 fL (80-98); Mean Platelet Volume 9.9 fL (9.4-12.3); Monocytes Absolute Auto 0.9 X10*3/uL (0.1-1.2); Monocytes Percent Auto 5.1 % (2-11); Neutrophils Absolute Auto 15.3 X10*3/uL (2.0-8.3); Neutrophils Percent Auto 88.5 % (45-73); Platelet Count 288 X10*3/uL (160-400); Red Blood Count 4.35 X10*6/uL (4.20-5.50); Red Cell Distribution Width 16.2 % (11.0-16.0); White Blood Count 17.3 X10*3/uL (4.8-10.8)
[2020-11-27 06:45] LABS: Anion Gap 15 (12-20); Blood Urea Nitrogen 6 mg/dL (9-16); Calcium 8.9 mg/dL (8.4-10.2); Carbon Dioxide 21 mmol/L (22-29); Chloride 106 mmol/L (96-108); Creatinine Clr Calc Pharmacy 132.9; Estimated Glomerular Filt Rate > 60; Glucose Random 98 mg/dL (60-115); Potassium 4.3 mmol/L (3.3-5.1); Sodium 138 mmol/L (135-145)
[2020-11-27 08:00] VITALS: BP 125/65; PULSE 70; RESP 17; TEMP 36.5; O2SAT 100
[2020-11-27] MEDS: buPROPion HCl XL 150 MG TAB.ER.24H PO (08:17)
[2020-11-27] MEDS: Famotidine/PF 20 MG/2 ML VIAL IVPUSH (08:17)
[2020-11-27 09:06] LABS: D Dimer 1742 NG/ML
--- NOTE | 2020-11-27 09:24 | MHC.CM.PN ---
EMR REVIEWED, PT ADMITTED S/P LAP SLEEVE GASTRECTOMY, PT IS A&OX4, REPORTS SHE WORKS FOR [employer], IS INDEPENDENT W/ALL CARE, PT DENIES DME AND NO HOME SERVICES, PT REPORTS SHE LIVES W/HER MOTHER AND SISTER AND REPORTS THEY CAN ASSIST IF SHE HAS ANY NEEDS THAT [place]. PT DID VERIFY PCP FREDERIC LONG, PT PROVIDED INFORMATION ON HCP'S AND CURRENTLY IS DECLINING ASSISTANCE TO COMPLETE ONE W/CM. D/C SUMMARY: HOME SELF-CARE W/FOLLOW-UP 12/02/20 AT 8:35AM, MOTHER TO TRANSPORT
[2020-11-27 09:30] LABS: C Reactive Protein 1.63 mg/dL (< or = 0.50)
[2020-11-27 11:31] VITALS: BP 119/67; PULSE 72; RESP 18; TEMP 37; O2SAT 100
--- NOTE | 2020-11-27 12:27 | PM.PNGS ---
Subjective Subjective Date of Service: 11/27/20 Patient reports: no new complaints and feels better Interval history: POD 1 s/p LSG. Required dilaudid yesterday 1600 hrs. Nausea and vomiting of yellow/black liquid at 7 or 8 pm. None since. Minimal PO intake last night and yesterday due to sleeping. Since early this morning, tolerating 8 oz (from 8 am to noon). No further nausea or vomiting. Tolerating ambulation and shows good technique on incentive spirometry. Leukocytosis this morning and cxr neg. D dimer elevated although can be related to recent surgery. No complaints of LE pain or swelling and no abnormal abdominal pain. Physical Exam Vital Signs: Vital Signs: Last Vital Signs Temp 98.6 F 11/27/20 11:31 Pulse 72 11/27/20 11:31 Resp 18 11/27/20 11:31 BP 119/67 11/27/20 11:31 Pulse Ox 100 11/27/20 11:31 Body Mass Index 38.2 Resp: Effort & Inspection: normal respiratory effort Auscultation: clear to auscultation bilaterally Cardio: Rate: regular rate Rhythm: regular rhythm GI: Inspection: Yes incision (c/d/i) Auscultation: normal bowel sounds Extrem: General: Yes no pedal edema Procedures Date of Service Date of Service: 11/27/20 Progress Note: A&P Assessment and plan (1) S/P laparoscopic sleeve gastrectomy: Status: Acute Assessment and Plan: POD 1 s/p LSG. Due to elevated d dimer will add arixtra 2.5 mg sc daily x [address] Junior and will dc home today. Fall Risk Details Current Medications: Current Medications Bupropion HCl (Bupropion Hcl Xl 150 Mg Tab.Er.24h) 150 mg PO DAILY [facility] Last Admin: 11/27/20 08:17 Dose: 150 mg Documented by: Famotidine (Famotidine/Pf 20 Mg/2 Ml Vial) 20 mg IVPUSH BID [facility] Last Admin: 11/27/20 08:17 Dose: 20 mg Documented by: Lactated Ringer's (Lr) 1,000 mls @ 125 mls/hr IVCONT .Q8H [facility] Last Infusion: 11/27/20 12:13 Dose: Infused Documented by: Acetaminophen (Ofirmev) 1,000 mg in 100 mls @ 16.7 mls/hr IV .Q6H [facility] Last Admin: 11/27/20 08:17 Dose: 16.7 mls/hr Documented by: Metoclopramide HCl (Metoclopramide Hcl 10 Mg/2 Ml Vial) 10 mg IVPUSH Q6H PRN PRN Reason: Nausea Ondansetron HCl (Ondansetron Hcl 4 Mg/2 Ml Vial) 4 mg IVPUSH Q8H [facility] Last Admin: 11/27/20 12:18 Dose: 4 mg Documented by: Sodium Chloride (0.9 % Sodium Chloride Flush 3 Ml Syringe) 3 ml IVFLUSH QSHIFT [facility] Last Admin: 11/27/20 06:30 Dose: Not Given Documented by: Time Spent With Patient Time: Total time spent is greater than 50% in coordination of care (as documented) at patient's floor/unit and/or counseling patient: Time with patient: 15 - 24 minutes Quality Stroke Does the patient have a stroke diagnosis?: No VTE Prior VTE?: No VTE Risk Level:: Surgical - moderate VTE Device Contraindication: N/A - Device Ordered VTE Drug Contraindication: Treatment Not Indicated
--- NOTE | 2020-11-27 15:10 | HO.POSTANES ---
Post Anesthesia Evaluation Post Anesthesia Evaluation Vital Signs: Vital Signs Temp Pulse Resp BP Pulse Ox 11/27/20 11:31 98.6 F 72 18 119/67 100 11/27/20 08:00 97.7 F 70 17 125/65 100 11/27/20 04:00 99.4 F 84 16 145/81 H 96 Anesthesia: General Endotracheal-GETA Mental Status: Awake Pain Control: Satisfactory Nausea/Vomiting: None Hydration: Adequate Anesthesia-Related Issues: No Anes. Related Issues
== END 2020-11-27 13:58 | disposition home or self-care (01) | DRG 403 ==
LOC: HO.SSSA 10:33 → HO.S3 11:03
PROVIDERS: Nurse Practitioner; Physician Assistant Surgical; Admitting Provider Surgery; PCP Internal Medicine; Visit Provider Surgery
PROC: 0DB64Z3 Excision of Stomach, Percutaneous Endoscopic Approach, Vertical (ICD-10-PCS; CPT 43845; principal; 2020-11-26 07:30)
DX: E66.01 Morbid (severe) obesity due to excess calories (principal); F32.9 Major depressive disorder, single episode, unspecified; M79.7 Fibromyalgia; Z68.38 Body mass index [BMI] 38.0-38.9, adult; K21.9 Gastro-esophageal reflux disease without esophagitis; Z20.822 Contact with and (suspected) exposure to COVID-19; Z79.899 Other long term (current) drug therapy
CPT/HCPCS: 36415; 71046; 80048; 80053; 80061; 81025; 83036; 83525; 84443; 84590; 85014; 85018; 85025; 85379; 85610; 85730; 86140; 86850; 86900; 86901; 87635; 88307; 88342; 99024; A4649; J0131; J0690; J1100; J1170; J2250; J2405; J3010

== ENCOUNTER → 2020-12-02 08:22 | Outpatient (BNVA) | payer OTHER, SELFPAY | PROVIDERS: PCP Internal Medicine; Referring Provider Internal Medicine; Visit Provider Surgery | DX: E66.9 Obesity, unspecified (principal); Z68.34 Body mass index [BMI] 34.0-34.9, adult | CPT/HCPCS: 99212 ==

== ENCOUNTER → 2021-01-03 08:13 | Outpatient (BNVA) | payer OTHER, SELFPAY | PROVIDERS: PCP Internal Medicine; Visit Provider Surgery | DX: E66.9 Obesity, unspecified (principal); Z68.32 Body mass index [BMI] 32.0-32.9, adult | CPT/HCPCS: 99212 ==

== ENCOUNTER → 2021-01-29 08:17 | Outpatient (BNVA) | payer OTHER, SELFPAY | PROVIDERS: PCP Internal Medicine; Visit Provider Dietitian, Registered | DX: Z72.4 Inappropriate diet and eating habits (principal); Z68.32 Body mass index [BMI] 32.0-32.9, adult | CPT/HCPCS: 97803 ==

== ENCOUNTER → 2021-02-06 08:08 | Outpatient (BNVA) | payer OTHER, SELFPAY | PROVIDERS: PCP Internal Medicine; Referring Provider Surgery; Visit Provider Dietitian, Registered ==

== ENCOUNTER → 2021-02-26 08:26 | Outpatient (BNVA) | payer OTHER, SELFPAY | PROVIDERS: PCP Internal Medicine; Referring Provider Internal Medicine; Visit Provider Dietitian, Registered ==

== ENCOUNTER → 2021-03-04 08:06 | Outpatient (BNVA) | payer OTHER, SELFPAY | PROVIDERS: PCP Internal Medicine; Referring Provider Internal Medicine; Visit Provider Dietitian, Registered ==

== ENCOUNTER 2022-09-27 15:11 | Emergency (ER) | payer MEDICAID, SELFPAY ==
--- NOTE | 2022-09-27 15:17 | ED_ITS ---
HPI - Dizziness General Chief Complaint: Dizziness Stated Complaint: dizzy Time Seen by Provider: 09/27/22 17:22 Source: patient and family (patient's mother) Mode of arrival: ambulatory Limitations: no limitations History of Present Illness HPI Narrative: Patient is a 32 year old assigned female at with a history of MDD, anemia, anxiety, depression, fibromyalgia, and GERD presenting to the emergency [facility] today with persistent dizziness. Patient states that last week she was seen at [facility] for this dizziness / room spinning sensation. Patient states that she had a head CT without contrast, a head CT with contrast, and an MRI. Patient states that she was seen by a neurologist there who started her on steroids, meclazine, and ear drops. Patient states that the work note that they gave her was not long enough and she needs a longer one. Patient denies any lightheadedness, abdominal pain, nausea, vomiting, fever, chills, blurry vision, double vision, loss of vision, chest pain, difficulty breathing, shortness of breath, back pain, night sweats, pain with urination, increased urinary frequenc y, increased urinary urgency, blood in her urine or stool, syncope or a near syncopal episode, recent trauma or falls, bowel incontinence, bladder incontinence, bowel retention, bladder retention, or any other complaints at this time. MD elicited complaint: dizziness Onset (ago): day(s) Severity: mild Description: room spinning History of similar symptoms: Yes Relieving factors: nothing Associated symptoms: denies other symptoms Related Data Home Medications Medication Instructions Recorded Confirmed bupropion HCl 150 mg 24 hr tablet, 150 mg PO QAM 05/31/20 12/02/20 extended release hydrocortisone 2.5 % topical 1 appl topical BID PRN Rash 11/26/20 12/02/20 ointment ketoconazole 2 % shampoo 1 appl topical DAILY 11/26/20 12/02/20 ketoconazole 2 % topical cream 1 appl topical BID 11/26/20 12/02/20 ondansetron HCl 4 mg tablet 4 mg PO Q12H PRN Nausea 11/26/20 12/02/20 (Zofran) Previous Rx's Medication Instructions Recorded pantoprazole 40 mg tablet,delayed 40 mg PO DAILY #30 tabs 11/18/20 release sucralfate 100 mg/mL oral 10 ml PO BID #400 mL 11/18/20 suspension fondaparinux 2.5 mg/0.5 mL 2.5 mg (0.5 mL) subcut DAILY 10 11/27/20 subcutaneous solution syringe days #5 mL (Arixtra) Allergies Allergy/AdvReac Type Severity Reaction Status Date / Time No Known Allergies Allergy Verified 12/02/20 15:43 [No Known Allergies*] Review of Systems Constitutional: Constitutional: Reports no additional constitutional complaints, Denies chills, Denies fever(s) and Denies night sweats Eyes: Eyes: Reports no additional eye complaints, Denies blurry vision, Denies change in vision, Denies diplopia, Denies eye discharge, Denies loss of vision and Denies eye pain ENT: Reports dizziness Cardiovascular: Cardiovascular: Reports no additional cardiovascular complaints, Denies chest pain, Denies lightheadedness, Denies Loss of Consciousness and Denies dyspnea Respiratory: Respiratory: Reports no additional respiratory complaints and Denies dyspnea Gastrointestinal: Gastrointestinal: Reports no additional gastrointestinal complaints, Denies abdominal pain, Denies melena, Denies hematochezia, Denies change in bowel habits and Denies change in stool character Genitourinary: Genitourinary: Denies hematuria, Denies urinary frequency, Denies dysuria, Denies urinary incontinence, Denies urinary hesitancy and Denies urinary urgency Musculoskeletal: Musculoskeletal: Reports no additional musculoskeletal complaints, Denies numbness and Denies tingling Neurologic: Reports dizziness, Denies loss of vision, Denies numbness and Denies tingling Psychiatric: Psychiatric: Reports no additional psychiatric complaints Endocrine: Endocrine: Reports no additional endocrine complaints Hematologic/Lymphatic: Hematologic/Lymphatic: Reports no additional hematologic/lymphatic complaints Allergic/Immunologic: Allergic/Immunologic: Reports no additional al lergic/immunologic complaints [facility] Past Medical History Attestation statement: The following information was validated with the patient. (all information was validated with the patient's mother) Source: old records reviewed, obtained from family (patient's mother provided additional history and confirmed the history provided by the patient) and nursing notes reviewed Medical History Anemia Annual physical exam Back pain BMI 34.0-34.9,adult Family history of breast cancer GERD (gastroesophageal reflux disease) MDD (major depressive disorder), recurrent episode, moderate Tinea versicolor Vitamin B12 deficiency Vitamin D deficiency Surgical History Acute meniscal tear of right knee History of cholecystectomy History of sleeve gastrectomy Family History Family History Maternal Grandfather Myocardial infarct Mother Breast cancer Maternal Grandmother Breast cancer Maternal Aunt Breast cancer Maternal Grandfather Colon cancer Maternal Uncle Substance abuse Father No problems noted. Sister Arthritis Social History Social History Housing: Apartment Are you a primary critical care nurse to a significant other at home: No Do you presently have visiting nurse or other home services: No Alcohol intake: never Patient Tobacco Use Status: Never used Tobacco Advance Directives: No Advance Directives Information Provided: No service: No Current occupational status: employed Physical Exam Vital Signs: Vital Signs: Last Vital Signs Temp 99.1 F 09/27/22 15:18 Pulse 114 H 09/27/22 15:18 Resp 17 09/27/22 15:18 BP 105/76 09/27/22 15:18 Pulse Ox 99 09/27/22 15:18 O2 Del Method Room Air 09/27/22 15:18 BMI result Body Mass Index 27.5 Const: General: cooperative, no acute distress, alert and awake Nutritional Appearance: well nourished Orientation/consciousness: patient oriented x3 Limitations: no limitations HEENT: Head: Yes normal to inspection and Yes atraumatic Ears: hearing grossly normal bilaterally and external ears normal General nose exam: Normal external nose present, no nasal discharge noted and no epistaxis Face and sinus: Yes normal facial exam, No abrasion and No laceration Mouth: Normal oral and palatal mucosa present, no drooling and no muffled voice Eyes: General: appearance normal, both eyes and all related structures Periorbital: periorbital findings normal Eyelids: Yes eyelids normal Conjunctivae: conjunctivae normal Pupils: Equal, round and reactive pupils present EOM: EOMs intact bilaterally Neck: Neck: Yes normal visual inspection, Yes full ROM and Yes no lymphadenopathy Chest: Chest palpation & inspection: normal inspection of the chest Resp: Effort & Inspection: normal respiratory effort and able to speak in complete sentences Auscultation: clear to auscultation bilaterally Cardio: Rate: regular rate Rhythm: regular rhythm GI: Inspection: Yes normal to inspection Palpation (GI): Soft to palpation, not firm, nontender and no guarding Neuro: General: patient oriented x3 and moves all extremities Cranial nerves: Yes Equal, round and reactive pupils present Cognition (Neuro): normal cognition Motor exam (neuro): 5/5 motor strength present throughout Sensory Exam: Normal double simultaneous stimulation for sensation Co ordination: [id number] test normal Extrem: General: Yes normal to inspection, Yes full ROM and Yes capillary refill normal Psych: Appearance: grossly normal Mental Status: mental status grossly normal Affect: normal affect Attitude: cooperative Thought process: Normal thought process present Thought content: Normal thought content present Insight: Good insight present (Psych) Course Course Course Narrative: This is an RME: Additional HPI, ROS, PE not included below will be deferred to primary provider. Patient is a 32-year-old female who presents emergency department for evaluation of dizziness, feeling off balance, eyes twitching, headache. Symptom onset 5 days ago, was evaluated at [facility], had CT scan and MRI which were reportedly without any abnormal findings, and was discharged home with prescription for methylprednisolone, meclizine, ear drops, without any improvement in her symptoms. Plan: Serum labs, EKG, orthostatic vital sign Medical Decision Making Medical Decision Making MDM Narrative: Patient is a 32 year old assigned female at with a history of MDD, anemia, anxiety, depression, fibromyalgia, and GERD presenting to the emergency department today with dizziness. Patient's physical exam was unremarkable. Patient's blood work was unremarkable. Patient's EKG was unremarkable. I explained my physical exam findings as well as all test results to the patient and the patient's mother. I answered all questions asked by the patient and the patient's mother. I stressed the importance of the patient taking her medication as prescribed. I stressed the importance of the patient following up with her primary care provider and a neurologist. I stressed the importance of the patient returning to the emergency department immediately if her symptoms were to worsen or if she were to develop any dizziness, shortness of breath, difficulty breathing, chest pain, blurry vision, loss of vision, nausea, vomiting, abdominal pain, fever, chills, back pain, or any other complaints. Patient and the patient's mother verbalized agreement and understanding with this treatment plan and discharge. Differential Diagnosis Differential Diagnoses: The differential diagnosis associated with the presentation includes BPPV Dizziness Vertigo Admission/Observation Consideration of admission/observation: Escalation of care including admission/observation considered Patient would have been admitted to the hospital had her work up had any findi ngs where hospital admission was appropriate and her clinical presentation warranted hospital admission. Lab Data MDM Lab Attestation statement: I reviewed the patient's lab results. My interpretation of these studies and their corresponding values is that they are grossly normal. 09/27/22 15:40 09/27/22 15:40 Labs: Lab Results 09/27/22 09/27/22 09/27/22 Range/Units 15:40 15:40 15:40 WBC 7.5 (4.8-10.8) X10*3/uL RBC 4.75 (4.20-5.50) X10*6/uL Hgb 8.7 L (12.0-16.0) g/dl Hct 31.1 L (37.0-47.0) % MCV 65.5 L (80.0-98.0) fL MCH 18.3 L (27.0-33.0) pg MCHC 28.0 L (31.0-35.0) g/dl RDW 16.5 H (11.0-16.0) % Plt Count 329 (160-400) X10*3/uL MPV 9.4 (9.4-12.3) fL Immature Gran % (Auto) 0.3 (0.0-0.4) % Neut % (Auto) 67.0 (45-73) % Lymph % (Auto) 26.2 (20-40) % Borden % (Auto) 6.0 (2-11) % Eos % (Auto) 0.1 (0-4) % Baso % (Auto) 0.4 (0-2) % Lymph # (Auto) 2.0 (1.2-4.9) X10*3/uL Borden # (Auto) 0.5 (0.1-1.2) X10*3/uL Eos # (Auto) 0.0 (0.0-0.4) X10*3/uL Baso # (Auto) 0.0 (0.0-0.2) X10*3/uL Abs Immat Gran (auto) 0.02 (0.00-0.03) X10*3/uL Absolute Neuts (auto) 5.0 (2.0-8.3) x10*3/uL Absolute Nucleated RBC 0.000 (0.0-0.012) X10*3/uL Nucleated RBC % (auto) 0.0 (0.0-0.2) /100WBC Sodium 139 (135-145) mmol/L Potassium 3.8 (3.3-5.1) mmol/L Chloride 106 (96-108) mmol/L Carbon Dioxide 23 (22-29) mmol/L Anion Gap 14 (12-20) BUN 19 H (9-16) mg/dL Creatinine 0.76 (0.5-1.4) mg/dL Estim Creat Clear Calc 99.9 Estimated GFR > 60 Random Glucose 109 (60-115) mg/dL Calcium 9.0 (8.4-10.2) mg/dL Magnesium 1.9 (1.6-2.6) mg/dL Total Bilirubin 1.2 H (0.0-1.0) mg/dL AST 12 (5-31) U/L ALT 10 (0-31) U/L Alkaline Phosphatase 42 (39-117) U/L Troponin I High Sens < 2.7 (<3.5-17.0) ng/L Total Protein 7.3 (6.5-8.0) g/dL Albumin 4.2 (3.5-5.0) g/dL Independent Interpretation I performed an independent interpretation of an: EKG Interpretation: Vent. Rate: 097 BPM ? ? Atrial Rate: 097 BPM P-R Int: 120 ms? QRS Dur: 082 ms QT Int: 332 ms ? ? ? P-R-T Axes: 070 058 045 degrees QTc Int: 421 ms ? Normal sinus rhythm Normal ECG When compared with ECG of 07-AUG-2020 15:44, No significant change was found DD/ 1534 Independent Historian Clinical information obtained from an independent historian. History obtained from or confirmed by: Parent (patient's mother provided additional history and confirmed the history provided by the patient.) External Record Review External record reviewed: Outside ED record (reviewed [facility] records.) Discharge Plan Discharge Clinical Impression: Vertigo Patient Disposition: Home, Self-Care Instructions: Vertigo (DC) Additional Instructions: Follow up with your primary care provider and a neurologist. Continue takign the meclazine and ear drops prescribed. Return to the emergency department immediately if your symptoms worsen or if you develop any dizziness, shortness of breath, difficulty breathing, chest pain, blurry vision, loss of vision, nausea, vomiting, abdominal pain, fever, chills, back pain, or any other complaints. Prescriptions: No Action hydrocortisone 2.5 % ointment 1 appl topical BID PRN (Reason: Rash) ketoconazole 2 % cream 1 appl topical BID Rx Instructions: APPLY TO CHEST AND NECK ketoconazole 2 % shampoo 1 appl topical DAILY Rx Instructions: USE HAS FACE AND BODY WASH ondansetron HCl [Zofran] 4 mg tablet 4 mg PO Q12H PRN (Reason: Nausea) fondaparinux [Arixtra] 2.5 mg/0.5 mL syringe 2.5 mg subcut DAILY 10 Days Qty: 5 0RF Rx Instructions: start tomorrow 11/28/20 bupropion HCl 150 mg tablet extended release 24 hr 150 mg PO QAM pantoprazole 40 mg tablet,delayed release (DR/EC) 40 mg PO DAILY Qty: 30 2RF sucralfate 100 mg/mL suspension 10 ml PO BID Qty: 400 2RF Referrals: [facility] Neuro/Sleep [Provider Group] (Call to establish and follow up with a neurologist. ) Dylan Jeter MD [Primary Care Provider] - Stand Alone Forms: Work/School Release Interventions: ED Discharge Assessment Last Done: 09/27/22 17:58 Discharge Date/Time: 09/27/22 17:59 Print Language: Kosovan
[2022-09-27 15:18] VITALS: BP 105/76; PULSE 114; RESP 17; TEMP 37.3; O2SAT 99; BMI 27.5
--- NOTE | 2022-09-27 15:23 | ECG_ITS ---
Test Reason : DIZZINESS Blood Pressure : / mmHG Vent. Rate : 097 BPM Atrial Rate : 097 BPM P-R Int : 120 ms QRS Dur : 082 ms QT Int : 332 ms P-R-T Axes : 070 058 045 degrees QTc Int : 421 ms Normal sinus rhythm Normal ECG When compared with ECG of 07-AUG-2020 15:44, No significant change was found Referred By: Clau Kincaid Electronically Signed By:JAMILA LUCIO MD
[2022-09-27 15:44] LABS: MANUAL DIFF FLAG NO
[2022-09-27 15:46] LABS: Basophils Percent Auto 0.4 % (0-2); Eosinophils Percent Auto 0.1 % (0-4); Hematocrit 31.1 % (37.0-47.0); Hemoglobin 8.7 g/dl (12.0-16.0); Imm Gran Abs Auto 0.02 X10*3/uL (0.00-0.03); Imm Gran Pct Auto 0.3 % (0.0-0.4); Lymphocytes Percent Auto 26.2 % (20-40); Mean Corpuscular Hemoglobin 18.3 pg (27.0-33.0); Mean Corpuscular Volume 65.5 fL (80.0-98.0); Mean Platelet Volume 9.4 fL (9.4-12.3); Monocytes Absolute Auto 0.5 X10*3/uL (0.1-1.2); Platelet Count 329 X10*3/uL (160-400); Red Blood Count 4.75 X10*6/uL (4.20-5.50); Red Cell Distribution Width 16.5 % (11.0-16.0); White Blood Count 7.5 X10*3/uL (4.8-10.8)
[2022-09-27 16:03] LABS: Alanine Aminotransferase 10 U/L (0-31); Albumin Level 4.2 g/dL (3.5-5.0); Alkaline Phosphatase 42 U/L (39-117); Anion Gap 14 (12-20); Aspartate Amino Transferase 12 U/L (5-31); Bilirubin Total 1.2 mg/dL (0.0-1.0); Blood Urea Nitrogen 19 mg/dL (9-16); Carbon Dioxide 23 mmol/L (22-29); Chloride 106 mmol/L (96-108); Creatinine Clr Calc Pharmacy 99.9; Estimated Glomerular Filt Rate > 60; Glucose Random 109 mg/dL (60-115); Magnesium 1.9 mg/dL (1.6-2.6); Potassium 3.8 mmol/L (3.3-5.1); Sodium 139 mmol/L (135-145); Total Protein 7.3 g/dL (6.5-8.0)
[2022-09-27 16:14] LABS: Troponin-I High Sensitivity < 2.7 ng/L (<3.5-17.0)
== END 2022-09-27 17:59 | disposition home or self-care (01) ==
PROVIDERS: Nurse Practitioner Family; Emergency Provider Emergency Medicine; PCP Internal Medicine
DX: R42 Dizziness and giddiness (principal); F41.9 Anxiety disorder, unspecified; Z98.84 Bariatric surgery status
CPT/HCPCS: 36415; 80053; 83735; 84484; 85025; 93005; 99283

== ENCOUNTER → 2022-09-27 15:23 | Outpatient (BNV) | payer OTHER, SELFPAY | PROVIDERS: Emergency Provider Emergency Medicine; PCP Internal Medicine; Visit Provider Internal Medicine Cardiovascular Disease | DX: R42 Dizziness and giddiness (principal) | CPT/HCPCS: 93010 ==

== ENCOUNTER 2022-10-01 13:03 | Outpatient (AMB) | payer OTHER, SELFPAY ==
--- NOTE | 2022-10-01 14:01 | MHC.OFFWIV ---
Intake Vital Signs 10/01/22 14:04 Height 5 ft 3 in BP 90/60 Blood Pressure Location Rt brachial Position Sitting Pulse 99 Pulse Source Pulse Oximeter Temp 97.9 F Temp Source Temporal Artery Scan Pulse Oximetry (%) 100 Oxygen Delivery Method Room Air Intake Visit Reasons: EP vertigo (lobby) Intake Note: Pt is here c/o vertigo. Pt states she was at [facility] from 09/22-09/25. Pt was also seen in [facility] on 09/27/22. Pt states [facility] said she had a minor stroke. Patient Tobacco Use Status: Never used Tobacco Allergies No Known Allergies [No Known Allergies*] Allergy (Verified 10/01/22 14:04) Do you need a note to return to daycare/school/sports/work: No HPI HPI Comments History of Present Illness Details 32-year-old female presents for dizziness. Patient states that for past week or so she has been feeling dizzy off-balance with nausea vomiting. She has seen evaluated at [facility] in [facility] during her evaluation she received CT non con and with contrast as well as MRI without contrast to seen evaluated by Neurology and diagnosed with vestibular neuronitis /vertigo. She was discharged on prednisone and meclizine. She reports no new symptoms this consistent symptoms [facility] Medical History Anemia Annual physical exam Back pain BMI 34.0-34.9,adult Family history of breast cancer GERD (gastroesophageal reflux disease) MDD (major depressive disorder), recurrent episode, moderate Tinea versicolor Vitamin B12 deficiency Vitamin D deficiency Surgical History Acute meniscal tear of right knee History of cholecystectomy History of sleeve gastrectomy Family History Maternal Grandfather Myocardial infarct Mother Breast cancer Maternal Grandmother Breast cancer Maternal Aunt Breast cancer Maternal Grandfather Colon cancer Maternal Uncle Substance abuse Father No problems noted. Sister Arthritis Social History Housing: Apartment Are you a primary manager home healthcare to a significant other at home: No Do you presently have visiting nurse or other home services: No Alcohol intake: never Patient Tobacco Use Status: Never used Tobacco service: No Current occupational status: employed Review of Systems Const All systems reviewed & are unremarkable except as noted in HPI and below Denies fever(s), Denies headache(s) and Denies weakness Eyes Reports no additional complaints ENT Reports vertigo, Reports dizziness and Denies headache(s) Card Reports no additional complaints, Denies chest pain, Denies leg edema and Denies dyspnea Resp Denies cough and Denies dyspnea GI Denies abdominal pain, Reports nausea and Denies vomiting Denies urinary frequency and Denies dysuria Musc Reports no additional complaints Neuro Reports vertigo, Reports dizziness, Denies headache(s) and Denies weakness Psych Reports no additional complaints Endo Reports no additional complaints Physical Exam Vital Signs: Last Vital Signs Temp 97.9 F 10/01/22 14:04 Pulse 99 10/01/22 14:04 BP 90/60 10/01/22 14:04 Pulse Ox 100 10/01/22 14:04 Oxygen Delivery Method Room Air 10/01/22 14:04 Const General: cooperative, no acute distress and alert Orientation/consciousness: patient oriented x3 Limitations: no limitations HEENT Head: Yes normal to inspection Ears: hearing grossly normal bilaterally and external ears normal General nose exam: Normal external nose present Eyes General: appearance normal, both eyes and all related structures Neck Neck: Yes normal visual inspection Chest Chest palpation & inspection: normal inspection of the chest Resp Effort & Inspection: normal respiratory effort, able to speak in complete sentences and no audible wheezes Auscultation: clear to auscultation bilaterally Cardio Rate: regular rate Rhythm: regular rhythm GI Inspection: Yes normal to inspection Palpation (GI): Soft to palpation and nontender Skin General skin exam: no rashes or lesions noted Neuro Other: NEURO PHYSCIAL EXAM Alert and oriented to person, place, time speech: clear, fluent CN II: visual acuity grossly intact b/l, PERRLA CN III, IV, : EOMI. Unilateral left beating nystagmus CN V: facial sensation grossly intact to light touch b/l CN VII: symmetric facial movement b/l, no facial droop CN VIII: hearing intact to finger rub b/l, no nystagmus CN IX, X: uvula midline CN XI: 5/5 strength with SCM and trapezius b/l CN XII: midline tongue protrusion, no atrophy or fasciculations motor: 5/5 muscle strength of UE/LE b/l, no pronator drift sensory: grossly intact b/l to light touch coordination: No dysmetria or dysdiadochokinesia with rapid alternating movement and finger to nose testing General: patient oriented x3 Psych Appearance: grossly normal Mental Status: mental status grossly normal Speech and movement: Normal speech and movement present Affect: normal affect Attitude: cooperative Thought process: Normal thought process present Thought content: Normal thought content present Assessment & Plan Assessment & Plan (1) Vertigo: Code(s): R42 - Dizziness and giddiness Plan 32-year-old female presents for dizziness. Patient states that for past week or so she has been feeling dizzy off-balance with nausea vomiting. VSS. Exam patient presents alert and oriented no acute distress. Neuro exam showed no focal findings. Patient with unilateral left beating nystagmus. Extensive record review shows extensive workup including MRI CT scans lab work and neurology consultation. Given no new symptoms I feel no additional workup is necessary at this time. Will prescribe Valium to assess with persistent symptoms. Will also place referral for vestibular rehab in Neurology. Discharge instructions, follow up and treatment are discussed with patient in my usual fashion. Alternatives in treatment are also discussed. The patient will return for worsening symptoms or as needed. Advised that any labs/imaging ordered will be followed up on and contact made if further treatment needed. Counseled that patient's condition may require further evaluation and/or treatment. Symptoms of concern for worsening disorder discussed in detail in my customary manner. Patient does verbalize understanding of the plan, there are no apparent barriers to communication. The patient is given the opportunity to ask questions and have them answered to his/her satisfaction Orders: Orders PT Evaluation and Treatment Today H81.20 - Vestibular neuronitis, unspecified ear Referrals Neurology Referral R42 - Dizziness and giddiness Medications: New diazepam 5 mg PO BID 3 days PRN 6 tabs 0RF anxiety Patient Instructions: You were seen evaluated in the walk-in clinic for your dizziness. Your records were reviewed as well as receiving examination. This time prescribed a short course of Valium to assist with ear vertigo symptoms. You have been referred to PT for vestibular rehab as well as Neurology. The experiencing new worsening symptoms such as difficulty speaking headache vision changes were seen dizziness use a present to the emergency department. Coding Level of Care Code Est Pt Level 4 (96237) Diagnoses Vertigo R42
[2022-10-01 14:04] VITALS: BP 90/60; PULSE 99; TEMP 36.6; O2SAT 100
== END 2022-10-01 14:35 | disposition home or self-care (01) ==
PROVIDERS: PCP Internal Medicine; Visit Provider Physician Assistant
DX: R42 Dizziness and giddiness (principal)
CPT/HCPCS: 99214

== ENCOUNTER 2022-10-12 10:56 | Outpatient (AMB) | payer OTHER, SELFPAY ==
--- NOTE | 2022-10-12 10:59 | A.OFFPC_ITS ---
Vital Signs 10/12/22 11:00 Height 5 ft 3 in Weight 145 lb 6 oz BMI 25.7 BP 110/66 Blood Pressure Location Lt brachial Position Sitting Pulse 94 Pulse Source Pulse Oximeter Pulse Oximetry (%) 98 [place] [facility] [place] ear nerve [place]/vertigo Intake Note: pt is here for ED f/u from 09/27 for left ear nerve infection/vertigo Ventilator Specialist Required: No Accompanied by: Self / Same As Patient Allergies No Known Allergies [No Known Allergies*] Allergy (Verified 10/12/22 11:15) Medication List - Last Reconciled 10/12/22 by Brannon Rooney PA-C diazepam 5 mg PO BID PRN 3 days meclizine 12.5 mg PO TID PRN ondansetron HCl (Zofran) 4 mg PO Q12H PRN Tobacco use date assessed: 10/12/22 Dental Screening Dental Screen Date: 10/12/22 Did you have a dental visit in the last 12 months?: Yes Did you have a dental problem in the last 6 months where you did not have access to dental care?: No Was dental information given to patient?: Patient has dentist [place] [facility] [place] left ear nerve infection/vertigo HPI Details Patient is a 32-year-old female here today for hospital discharge follow-up. Was seen at [facility] in early September for nausea and dizziness. She has been unable to work due to the severity of her dizziness A hospital Patient received MRI imaging her head without any acute intracranial pathologies. Labs within normal limits. Patient was started on meclizine, prednisone. She reports meclizine has been helpful. She was also seen at a walk-in clinic for similar symptoms of dizziness and was told she had vestibular neuritis no was advised to go to neurologist. Currently now not able to work and using a walker for ambulation assistance. Has been using meclizine which has been helpful though continues to have dizziness and unsteadiness upon head movements and eye movements. She does also reports some sinus pressure and feelings of your congestion. [facility] Medical History Anemia Annual physical exam Back pain BMI 34.0-34.9,adult Family history of breast cancer GERD (gastroesophageal reflux disease) MDD (major depressive disorder), recurrent episode, moderate Tinea versicolor Vitamin B12 deficiency Vitamin D deficiency Surgical History Acute meniscal tear of right knee History of cholecystectomy History of sleeve gastrectomy Family History Maternal Grandfather Myocardial infarct Mother Breast cancer Maternal Grandmother Breast cancer Maternal Aunt Breast cancer Maternal Grandfather Colon cancer Maternal Uncle Substance abuse Father No problems noted. Sister Arthritis Social History Housing: Apartment Are you a primary point of care specialist to a significant other at home: No Do you presently have visiting nurse or other home services: No Alcohol intake: never Patient Tobacco Use Status: Never used Tobacco e-Cigarette/Vaping Use: Never Used service: No Current occupational status: employed Cognitive needs: No Hearing needs: No Vision needs: No Questionnaire Thrive Questionnaire Date Thrive assessed: 12/02/20 HERRERA-7 AMB Questionnaire HERRERA-7 Date HERRERA - 7 assessed: 12/02/20 Source: Developed by Drs. Moses Whaley, Madai Mart, Octaviano Myrick and colleagues, with an educational lindsay from [employer]. Review of Systems Const Denies headache(s) Eyes Denies loss of vision ENT Denies vertigo, Denies dizziness, Denies headache(s) and Denies sore throat Card Denies chest pain, Denies leg edema and Denies lightheadedness Resp Denies cough, Denies hemoptysis and Denies wheezing GI Denies abdominal pain, Denies melena, Denies constipation, Denies diarrhea and Denies vomiting Denies urinary frequency, Denies dysuria and Denies urinary urgency Musc Denies arthralgias, Denies joint swelling, Denies numbness and Denies tingling Neuro Denies Abnormal speech present, Denies behavioral changes, Denies vertigo, Denies dizziness, Denies headache(s), Denies loss of vision, Denies memory loss, Denies numbness and Denies tingling Psych Denies anxiety, Denies behavioral changes, Denies depression, Denies memory loss and Denies panic attacks Jac/Lymph Denies easy bleeding and Denies easy bruising Aller/Immun Denies wheezing Physical exam (Primary Care) Vital Signs: Last Vital Signs Pulse 94 10/12/22 11:00 BP 110/66 10/12/22 11:00 Pulse Ox 98 10/12/22 11:00 BMI result Body Mass Index 25.7 Tobacco/Smoking Status: Tobacco use Status Tobacco use date assessed 10/12/22 10/12/22 11:08 Patient Tobacco Use Status Never used Tobacco 10/12/22 11:08 e-Cigarette/Vaping Use Never Used 10/12/22 11:08 Thrive Assessment: Date of Thrive Assessment Date Thrive assessed 12/02/20 10/12/22 11:08 Const General: healthy appearing, no acute distress, alert and awake Nutritional Appearance: well nourished Orientation/consciousness: oriented to person, oriented to place and oriented to time HENMT Other: DIZZINESS WITH CHANGE IN HEAD MOVEMENTS AND LYING IN SUPINE. Ears: TM's normal bilaterally General nose exam: Normal nasal mucous membranes and turbinates present Eyes Conjunctivae: conjunctivae normal Sclerae: sclerae normal Pupils: Equal, round and reactive pupils present Neck Neck: Yes no lymphadenopathy and Yes no JVD Thyroid: Thyroid normal Carotids: no bruits Resp Effort & Inspection: normal respiratory effort and not tachypneic Auscultation: no crackles, no rales, no rhonchi and no wheezes Cardio Rate: regular rate Rhythm: regular rhythm Heart sounds: no murmurs and normal S1 and S2 GI Palpation (GI): Soft to palpation, nontender, no hepatomegaly and no splenomegaly Auscultation: normal bowel sounds Skin General skin exam: no rashes or lesions noted and dry skin Neuro General: oriented to person, oriented to place and oriented to time Cranial nerves: Yes Equal, round and reactive pupils present Speech: No Abnormal speech present Gait exam (Neuro): Normal gait present Motor exam (neuro): no tremor noted Extrem Right upper extremity: full ROM Left upper extremity: full ROM Right lower extremity: full ROM; no edema Left lower extremity: full ROM; no edema Psych Mental Status: mental status grossly normal Speech and movement: Normal speech and movement present Affect: normal affect Attitude: cooperative Thought process: Normal thought process present Assessment and Plan Assessment & Plan (1) BPPV (benign paroxysmal positional vertigo): Code(s): H81.10 - Benign paroxysmal vertigo, unspecified ear Qualifiers: Laterality: bilateral Qualified Code(s): H81.13 - Benign paroxysmal ve rtigo, bilateral Plan: Patient's signs symptoms most consistent with benign paroxysmal positional vertigo. Meclizine has been helpful though continues to dizziness with change in head movements. Would likely benefit from vestibular therapy. Given patient Education on Tang maneuvers to be done at home. Orders: Orders PT Evaluation and Treatment 10/12/22 H81.13 - Benign paroxysmal vertigo, bilateral Medications: Changed From meclizine 12.5 mg PO TID PRN dizziness H81.13 - Benign paroxysmal vertigo, bilateral To meclizine 12.5 mg PO TID 14 days 42 tabs 0RF dizziness H81.13 - Benign paroxysmal vertigo, bilateral Refilled diazepam 5 mg PO BID 3 days PRN 6 tabs 0RF anxiety H81.13 - Benign paroxysmal vertigo, bilateral Coding Level of Care Code Est Pt Level 3 (22136) Diagnoses BPPV (benign paroxysmal positional vertigo) H81.13 Laterality: bilateral
[2022-10-12 11:00] VITALS: BP 110/66; PULSE 94; O2SAT 98; BMI 25.7
== END 2022-10-12 11:42 | disposition home or self-care (01) ==
PROVIDERS: PCP Internal Medicine; Visit Provider Physician Assistant
DX: H81.13 Benign paroxysmal vertigo, bilateral (principal)
CPT/HCPCS: 99213

== ENCOUNTER 2022-11-06 14:00 | Outpatient (RCR) | payer OTHER, SELFPAY ==
[2022-10-20 15:02] VITALS: BP 103/62; PULSE 83
--- NOTE | 2022-10-22 11:17 | MHC.PT.EP ---
[facility] [place] Office [place] Office [place] Office [address] Xander Awad [address] [phone] F: [phone] F: [phone] F: [phone] F: [phone] Physical Therapy Plan of Care Date of Evaluation: Date of Surgery: Diagnosis: Benign paroxysmal vertigo, bilateral Assessment: Pt is a pleasant 32yo F who presents to PT with reports of onset of dizziness ~1 month ago. Pt reports she had ear infection and ringing on her L side. She was hospitalized, had work up for stroke which was negative per pt report. Upon PT assessment for BPPV, pt tested negative for posterior and horizontal canals B. 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 She will benefit from skilled PT in order to strengthen vestibular system, improve dynamic balance, and improve safety with functional mobility. She is recommended to be seen 2x/week for 4 weeks and will be reassessed at that time. Frequency and Duration: The patient will be seen 2x/week for 4 weeks Short Term Goals: Pt will be I with HEP to promote self management of symptoms Pt will successfully perform supine<>sit and sit<>stand transfers without increase in symptoms Briquette Molder Goals: Pt will tolerate ambulation with head turns without increase in symptoms to assist with functional tasks such as grocery shopping Pt will be able to sit in the car for 20 min without increase in symptoms Pt will demonstrate improvements in function as evidenced by statistically significant improvement in Dynamic Gait Index assessment Treatment Plan: Modalities to reduce pain, spasms and effusion. Manual therapy to restore motion and function. Therapeutic exercise to improve strength and flexibility. Neuromuscular re-education for posture and balance. Therapeutic activities to return to functional activities of daily living. Electronically signed by: Vandana Mccoy, PT, DPT Please sign and return to therapist. Thank you for your referral.
--- NOTE | 2022-12-22 11:40 | MHC.PT.DC ---
[facility] [place] Office [place] Office [place] Office [address] Xander Awad [address] [phone] F: [phone] F: [phone] F: [phone] F: [phone] Physical Therapy Discharge Report Diagnosis: Benign paroxysmal vertigo, bilateral Date of Surgery: Date of Evaluation: 10/20/22 Date of Discharge: 12/22/22 Treatments to Date: 5 Cancellations to Date: No Shows to Date: Discharge Status: Achieved Goals Improved Function Independent with HEP Discharge Summary: Pt was seen for PT from 10/20/22-11/06/22. Her last attended appointment was 11/06/22. She made excellent progress with PT. She consistently had no dizziness. She returned to performing ADLs without any difficulty or limitations. She demonstrated ability to ambulate safely without AD with head turns with steady gait. She is being D/C from skilled PT at this time as she has not called to reschedule in > 30 days Electronically signed by: Vandana Mccoy, PT, DPT Please sign and return to therapist. Thank you for your referral.
== END 2022-12-22 11:40 | disposition home or self-care (01) ==
LOC: HO.PT 14:00
PROVIDERS: PCP Internal Medicine; Visit Provider Physician Assistant
DX: H81.13 Benign paroxysmal vertigo, bilateral (principal)
CPT/HCPCS: 97112; 97116; 97162

== ENCOUNTER 2023-01-01 09:43 | Outpatient (AMB) | payer OTHER, SELFPAY ==
--- NOTE | 2023-01-01 09:52 | MHC.OFFVIS ---
Intake Vital Signs 01/01/23 09:55 Height 5 ft 3 in Weight 150 lb BMI 26.6 BP 110/70 Blood Pressure Location Rt brachial Position Sitting Pulse 96 Pulse Source Pulse Oximeter Pulse Oximetry (%) 99 Oxygen Delivery Method Room Air Intake Visit Reasons: INP-Dizziness and guiddiness - LVM with appt Intake Note: NPV dizziness and guiddiness Welfare Project Manager Required: No Allergies No Known Allergies [No Known Allergies*] Allergy (Verified 01/01/23 09:52) HPI HPI Comments History of Present Illness Details 32 y/o female patient presents for new in-person visit for evaluation of vertigo. Pt reports that she had severe vertigo about 2 months ago. She started having ear ringing and then next day she had nausea, dizziness, difficulty focusing eyes, lost balance. Pt visit [facility] ER. She was told that brain MRI and CT result was normal. The vertigo symptoms lasted about a month. Pt was evaluated and found that crystal was detached and did vestibular therapy. The symptoms has improved and no more episodes of vertigo after that. She has diazepam and meclizine as needed but did not use it often. [facility] Medical History Anemia Annual physical exam Back pain BMI 34.0-34.9,adult Family history of breast cancer GERD (gastroesophageal reflux disease) MDD (major depressive disorder), recurrent episode, moderate Tinea versicolor Vitamin B12 deficiency Vitamin D deficiency Surgical History Acute meniscal tear of right knee History of cholecystectomy History of sleeve gastrectomy Family History Maternal Grandfather Myocardial infarct Mother Breast cancer Maternal Grandmother Breast cancer Maternal Aunt Breast cancer Maternal Grandfather Colon cancer Maternal Uncle Substance abuse Father No problems noted. Sister Arthritis Social History (Updated 01/01/23 @ 09:55 by Heather Cook [facility]) Housing: Apartment Are you a primary critical care unit nurse to a significant other at home: No Do you presently have visiting nurse or other home services: No Alcohol intake: never Patient Tobacco Use Status: Never used Tobacco e-Cigarette/Vaping Use: Never Used Use of substances other than those prescribed or required for medical reasons: No service: No Current occupational status: employed Cognitive needs: No Hearing needs: No Vision needs: No Review of Systems Const All systems reviewed & are unremarkable except as noted in HPI and below ENT Reports Normal hearing present Neuro Reports Normal hearing present Physical Exam Vital Signs: Last Vital Signs Pulse 96 01/01/23 09:55 BP 110/70 01/01/23 09:55 Pulse Ox 99 01/01/23 09:55 Oxygen Delivery Method Room Air 01/01/23 09:55 BMI result Body Mass Index 18.7 Const General: cooperative and no acute distress Nutritional Appearance: overweight Orientation/consciousness: patient oriented x3 Neck Neck: Yes full ROM and Yes supple Resp Effort & Inspection: normal respiratory effort and able to speak in complete sentences Neuro General: patient oriented x3 and gait normal Cranial nerves: Yes Bilaterally intact EOM present, Yes Normal facial strength present, Yes Midline tongue present, Yes Symmetric palate elevation present, Yes Normal hearing present, Yes Ability to bilaterally rotate head present and Yes Ability to bilaterally elevate shoulders present Cognition (Neuro): normal cognition Gait exam (Neuro): Normal gait present Motor exam (neuro): 5/5 motor strength present throughout, Pronator motor function not present and no tremor noted Deep tendon reflexes (DTR's): Right brachioradialis reflex intensity grade: 2+, Left brachioradialis reflex intensity grade: 2+, Right patellar reflex intensity grade: 2+ and Left patellar reflex intensity grade: 2+ Psych Appearance: grossly normal Mental Status: mental status grossly normal Speech and movement: Normal speech and movement present Affect: normal affect Attitude: cooperative Assessment & Plan Assessment & Plan (1) BPPV (benign paroxysmal positional vertigo): Code(s): H81.10 - Benign paroxysmal vertigo, unspecified ear Qualifiers: Laterality: bilateral Qualified Code(s): H81.13 - Benign paroxysmal vertigo, bilateral Plan Advised patient to try alvarez, mag and vitamin D supplement to prevent recurrent vertigo. Continue diazepam and meclizine as needed when she has vertigo, and do vestibular maneuver. Coding Level of Care Code New Pt Level 3 (97101) Diagnoses Benign paroxysmal positional vertigo due to bilateral vestibular disorder H81.13 Laterality: bilateral
[2023-01-01 09:55] VITALS: BP 110/70; PULSE 96; O2SAT 99; BMI 26.6
== END 2023-01-01 10:25 | disposition home or self-care (01) ==
PROVIDERS: PCP Internal Medicine; Visit Provider Nurse Practitioner Family
DX: H81.13 Benign paroxysmal vertigo, bilateral (principal)
CPT/HCPCS: 99203

== ENCOUNTER → 2023-01-01 09:43 | Outpatient (BNVA) | payer OTHER, SELFPAY | PROVIDERS: PCP Internal Medicine; Visit Provider Nurse Practitioner Family ==

== ENCOUNTER 2023-04-20 13:43 | Outpatient (AMB) | payer OTHER, SELFPAY ==
[2023-04-20 13:47] VITALS: BP 114/68; PULSE 109; O2SAT 100; BMI 25.3
--- NOTE | 2023-04-20 13:47 | A.OFFPC_ITS ---
Vital Signs 04/20/23 13:47 Height 5 ft 3 in Weight 143 lb BMI 25.3 BP 114/68 Blood Pressure Location Lt brachial Position Sitting Pulse 109 H Pulse Source Pulse Oximeter Pulse Oximetry (%) 100 Oxygen Delivery Method Room Air Intake Visit Reasons: Pe Intake Note: Patient is here today for a physical. Cis Coordinator Required: No Allergies No Known Allergies [No Known Allergies*] Allergy (Verified 04/20/23 13:48) Tobacco use date assessed: 04/20/23 Dental Screening Dental Screen Date: 04/20/23 Did you have a dental visit in the last 12 months?: Yes Did you have a dental problem in the last 6 months where you did not have access to dental care?: No Was dental information given to patient?: Patient has dentist HPI Pe HPI Details 33-year-old female with a history of lap aroscopic sleeve gastrectomy 2020 generalized anxiety disorder/depression with suicidal ideation GERD and anemia coming in for physical exam. Last seen in November 2020. Review of the notes September 2022 had tinnitus and dizziness right ear diagnosis of vertigo with unidirectional nystagmus vestibular neuritis diagnosis advised steroids and MRI. vertigo better. had constipation, change in diet better. not sexually active ever, LMP March 3rd week 7 days first 2 days heavy [employer] week february PFSH Medical History (Updated 04/20/23 @ 14:18 by Dylan Jeter MD) BMI 34.0-34.9,adult GERD (gastroesophageal reflux disease) MDD (major depressive disorder), recurrent episode, moderate Vitamin B12 deficiency Anemia Back pain Tinea versicolor Family history of breast cancer Annual physical exam Vitamin D deficiency Surgical History History of sleeve gastrectomy Acute meniscal tear of right knee History of cholecystectomy Family History (Updated 04/20/23 @ 14:14 by Dylan Jeter MD) Maternal Grandfather Myocardial infarct Mother Breast cancer Maternal Grandmother Breast cancer Maternal Aunt Breast cancer Multiple myeloma Maternal Grandfather Colon cancer Maternal Uncle Substance abuse Father No problems noted. Sister Arthritis Social History (Updated 01/01/23 @ 09:55 by Heather Cook CMA) Housing: Apartment Are you a primary resident caregiver to a significant other at home: No Do you presently have visiting nurse or other home services: No Alcohol intake: never Patient Tobacco Use Status: Never used Tobacco e-Cigarette/Vaping Use: Never Used service: No Current occupational status: employed Cognitive needs: No Hearing needs: No Vision needs: No Questionnaire PHQ-9 Over the last 2 weeks, how often have you been bothered by any of the following problems? 2. Feeling down, depressed, or hopeless: several days 3. Trouble falling or staying asleep, or sleeping too much: several days 4. Feeling tired or having little energy: nearly every day 5. Poor appetite or overeating: several days 6. Feeling bad about yourself - or that you are a failure or have let yourself or your family down: several days 7. Trouble concentrating on things, such as reading the newspaper or watching television: nearly every day 8. Moving or speaking so slowly that other people could have noticed. Or the opposite - being so fidgety or restless that you have been moving around a lot more than usual: several days 9. Thoughts that you would be better off or of hurting yourself in some way: not at all Depression Screening Interpretation: Positive Depression Screening Done: Yes Source: Developed by Drs. Moses Whaley, Madai Mart, Octaviano Myrick and colleagues, with an educational lindsay from [employer]. Thrive Questionnaire Date Thrive assessed: 04/20/23 I am a: Patient What is your living situation today?: I have a steady place to live Within the past 12 months, did the food you bought not last and you didn't have the money to get more?: Never true Within the past 12 months, did you worry whether your food would run out before you got money to buy more?: Never true Do you have trouble paying for medicines?: No Do you have trouble getting transportation to medical appointments?: No Do you have trouble paying your heating and electricity bill?: No Do you have trouble taking care of your child, family member or friend?: No Do you have trouble with day-to-day activities such as bathing, preparing meals, shopping, managing finances, etc.?: No Are you currently unemployed and looking for a job?: No Are you interested in more education?: No Please select the resources that you would like help with: None THRIVE Score: 0 AUDIT C Alcohol Use Questionnaire (AUDIT-C) 1. How often do you have a drink containing alcohol?: Never 2. How many drinks containing alcohol do you have on a typical day when you are drinking?: 1 or 2 3. How often do you have six or more drinks on one occasion?: Never Total Score: 0 HERRERA-7 AMB Questionnaire HERRERA-7 Date HERERRA - 7 assessed: 04/20/23 Feeling nervous, anxious, or on edge: 1 = Several days Not being able to stop or control worryin = Several days Worrying too much about different things: 1 = Several days Trouble relaxin = Several days Being so restless that it is hard to sit still: 0 = Not at all Becoming easily annoyed or irritable: 1 = Several days Feeling afraid as if something awful might happen: 0 = Not at all Total HERRERA-7 score (0-4 normal; 5-9 mild; 10-14 moderate; 15-21 severe): 5 Source: Developed by Drs. Moses Whaley, Madai Mart, Octaviano Myrick and colleagues, with an educational lindsay from [employer]. Review of Systems Const Denies poor appetite and Denies weakness Eyes Denies no additional complaints ENT Reports Normal hearing present, Denies dizziness, Denies nasal congestion, Denies tinnitus and Denies sore throat Card Denies chest pain, Denies syncope, Denies rapid heart rate and Denies dyspnea Resp Denies cough and Denies dyspnea GI Denies change in stool character, Reports constipation, Denies diarrhea, Denies nausea and Denies vomiting Denies urinary frequency, Denies difficulty voiding and Denies dysuria Neuro Reports Normal hearing present, Denies confusion, Denies dizziness, Denies syncope and Denies weakness Psych Denies confusion Physical exam (Primary Care) Vital Signs: Last Vital Signs Pulse 109 H 04/20/23 13:47 BP 114/68 04/20/23 13:47 Pulse Ox 100 04/20/23 13:47 Oxygen Delivery Method Room Air 04/20/23 13:47 BMI result Body Mass Index 25.3 Tobacco/Smoking Status: Tobacco use Status Tobacco use date assessed 04/20/23 04/20/23 13:50 Patient Tobacco Use Status Never used Tobacco 04/20/23 13:50 e-Cigarette/Vaping Use Never Used 04/20/23 13:50 PHQ-9: PHQ-9 Score PHQ-9: Total score 0 04/20/23 13:50 Depression Screening Interpretation: Positive Thrive Assessment: Date of Thrive Assessment Date Thrive assessed 04/20/23 04/20/23 13:50 Const General: alert and awake; No confusion Orientation/consciousness: No confusion HENMT Head: Yes normocephalic Ears: external ears normal and TM's normal bilaterally Face and sinus: Yes normal facial exam Mouth: moist mucous membranes Throat: Yes tonsils normal Eyes Conjunctivae: conjunctivae normal Pupils: Equal, round and reactive pupils present and Pupil accommodation reflex normal Direct Ophthalmoscopy: normal light reflex Neck Neck: No lymphadenopathy Thyroid: Thyroid normal Chest Chest palpation & inspection: normal inspection of the chest Resp Effort & Inspection: normal respiratory effort and no audible wheezes Auscultation: clear to auscultation bilaterally, no crackles, no wheezes and lung sounds not diminished Cardio Rate: regular rate Rhythm: regular rhythm Peripheral pulses: radial pulses present and dorsalis pedis present GI Palpation (GI): no masses Auscultation: normal bowel sounds and normoactive bowel sounds Rectal Exam - Female: deferred Skin General skin exam: no rashes or lesions noted Rashes: no rashes Neuro General: deep tendon reflexes 2+ bilaterally and No confusion Cranial nerves: Yes Equal, round and reactive pupils present, Yes Midline tongue present, Yes Normal hearing present and Yes Ability to bilaterally elevate shoulders present Cognition (Neuro): normal cognition Gait exam (Neuro): Normal gait present Motor exam (neuro): 5/5 motor strength present throughout Deep tendon reflexes (DTR's): Right brachioradialis reflex intensity grade: 2+, Left brachioradialis reflex intensity grade: 2+, Right patellar reflex intensity grade: 2+ and Left patellar reflex intensity grade: 2+ Extrem General: No edema Immunizations Boostrix Tdap 2.5 Lf unit-8 mcg-5 Lf/0.5 mL intramuscular syringe Performing Provider: Dylan Jeter MD [facility] Administered by: CAROLEE Colunga on 04/20/23 14:32 Dose Route Admin Location Dispensed Lot Number Expiration Date [employer] 0.5 mL IM Left Deltoid 0.5 mL [id number] 02/10/25 57011-585-84 Within3 VIS Given Date VIS Provided VIS Publication Date 04/20/23 Single Vaccine 20 Eligibility Eligibility Date Funding Source Not VFC Eligible 04/20/23 Private Assessment and Plan Assessment & Plan (1) S/P laparoscopic sleeve gastrectomy: Comment: November 2020 Code(s): Z98.84 - Bariatric surgery status Plan: Continue to follow-up with bariatric surgeon (2) Annual physical exam: Code(s): Z00.00 - Encounter for general adult medical examination without abnormal findings (3) BPPV (benign paroxysmal positional vertigo): Code(s): H81.10 - Benign paroxysmal vertigo, unspecified ear Qualifiers: Laterality: bilateral Qualified Code(s): H81.13 - Benign paroxysmal vertigo, bilateral Plan: Will continue to monitor for now (4) Anemia: Code(s): D64.9 - Anemia, unspecified Plan: Advised to have this worked up (5) Generalized anxiety disorder: Comment: [facility] Code(s): F41.1 - Generalized anxiety disorder Plan: Continue with counseling (6) GERD (gastroesophageal reflux disease): Code(s): K21.9 - Gastro-esophageal reflux disease without esophagitis Plan: Avoid the foods that causes that usually spicy foods, tomato products, juices, coffee, soda and foods that your sensitive to. After eating do not lie down, allow 3-4 hours before in lie down. And keep the head of bed above 30 degrees to avoid the acid from going up. (7) Constipation: Code(s): K59.00 - Constipation, unspecified Plan: increase oral fluids , diet high in fiber and keep active Orders: Orders IRON PROFILE Today D64.9 - Anemia, unspecified Reticulocyte Count Today D64.9 - Anemia, unspecified Magnesium Today Z98.84 - Bariatric surgery status Thyroid Stimulating Hormone Today Z98.84 - Bariatric surgery status TDaP Immunization Today Z23 - Encounter for immunization Comprehensive Met. Panel Today D64.9 - Anemia, unspecified Complete Blood Count Auto Diff Today D64.9 - Anemia, unspecified Ferritin Today D64.9 - Anemia, unspecified Vitamin B12 and Folate Today D64.9 - Anemia, unspecified Free T4 (Free Thyroxine) Today Z98.84 - Bariatric surgery status Vitamin D 25-OH Total Today Z98.84 - Bariatric surgery status Lipid Panel Today E78.00 - Pure hypercholesterolemia, unspecified, Z98.84 - [facility] surgery status Referrals Gastroenterology Referral K21.9 - Gastro-esophageal reflux disease without esophagitis Medications: New psyllium husk (Fiber (psyllium husk)) 1.04 grams (2 x 0.52 gram) PO DAILY 60 caps 2RF K59.00 - Constipation, unspecified Coding Level of Care Code Est Pt Prev Care [id number]) Diagnoses S/P laparoscopic sleeve gastrectomy Z98.84 Annual physical exam Z00.00 Benign paroxysmal positional vertigo due to bilateral vestibular disorder H81.13 Laterality: bilateral Anemia D64.9 Generalized anxiety disorder F41.1 GERD (gastroesophageal reflux disease) K21.9 Constipation K59.00
== END 2023-04-20 14:40 | disposition home or self-care (01) ==
PROVIDERS: PCP Internal Medicine; Visit Provider Internal Medicine
DX: Z00.00 Encounter for general adult medical examination without abnormal findings (principal); Z98.84 Bariatric surgery status; H81.13 Benign paroxysmal vertigo, bilateral; Z23 Encounter for immunization; D64.9 Anemia, unspecified; F41.1 Generalized anxiety disorder; K21.9 Gastro-esophageal reflux disease without esophagitis; K59.00 Constipation, unspecified
CPT/HCPCS: 90471; 90715; 99395

== ENCOUNTER 2023-06-18 16:29 | Emergency (ER) | payer OTHER, SELFPAY ==
[2023-06-18 16:39] VITALS: BP 121/77; PULSE 86; RESP 18; TEMP 37.1; O2SAT 100; BMI 25.7
[2023-06-18 17:08] LABS: MANUAL DIFF FLAG NO
[2023-06-18 17:09] LABS: Basophils Percent Auto 0.3 % (0-2); Eosinophils Percent Auto 0.2 % (0-4); Hematocrit 26.8 % (37.0-47.0); Hemoglobin 7.5 g/dl (12.0-16.0); Imm Gran Abs Auto 0.01 X10*3/uL (0.00-0.03); Imm Gran Pct Auto 0.2 % (0.0-0.4); Lymphocytes Absolute Auto 1.2 X10*3/uL (1.2-4.9); Lymphocytes Percent Auto 19.3 % (20-40); Mean Corpuscular Hemoglobin 17.7 pg (27.0-33.0); Mean Platelet Volume 9.1 fL (9.4-12.3); Monocytes Absolute Auto 0.5 X10*3/uL (0.1-1.2); Monocytes Percent Auto 7.9 % (2-11); Neutrophils Absolute Auto 4.3 x10*3/uL (2.0-8.3); Neutrophils Percent Auto 72.1 % (45-73); Platelet Count 316 X10*3/uL (160-400); Red Blood Count 4.24 X10*6/uL (4.20-5.50); Red Cell Distribution Width 17.8 % (11.0-16.0)
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
[2023-06-18 17:20] LABS: Appearance Urine Clear; Color Urine Yellow; Glucose Urine UA Negative (Negative); Leukocyte Esterase Urine Negative (Negative); Nitrite Urine Negative (Negative); PH 5.5 (5.0-9.0); Specific Gravity - Urine <= 1.005 (1.005-1.025); UMIC TRIGGER UACC YES; UPreg QC Valid YES; Urine Blood Large (3+) (Negative); Urine Ketones Negative (Negative); Urine Pregnancy NEGATIVE (NEGATIVE); Urine Protein Negative (Neg-Trace)
[2023-06-18 17:22] VITALS: BP 120/79; PULSE 88; RESP 19; TEMP 37.2
[2023-06-18 17:25] LABS: Bacteria Urine Trace (None Seen); Hyaline Casts Urine 0-2 /LPF (0-2); Squamous Epithelial Cell Urine 0-2 /HPF (0-2); WBC Urine 0-5 /HPF (0-5)
[2023-06-18 17:27] LABS: Alanine Aminotransferase 10 U/L (0-31); Albumin Level 4.4 g/dL (3.5-5.0); Alkaline Phosphatase 41 U/L (39-117); Anion Gap 12 (12-20); Aspartate Amino Transferase 13 U/L (5-31); Blood Urea Nitrogen 11 mg/dL (9-16); COVID-19 Test Negative (Negative); Calcium 9.1 mg/dL (8.4-10.2); Carbon Dioxide 25 mmol/L (22-29); Chloride 107 mmol/L (96-108); Creatinine Clr Calc Pharmacy 108.8; Estimated Glomerular Filt Rate > 60; Ethanol < 10 mg/dL; Glucose Random 93 mg/dL (60-115); IDNOW Serial# 152EDE1D; Mean Corpuscular Volume 63.2 fL (80.0-98.0); Potassium 4.1 mmol/L (3.3-5.1); Sodium 140 mmol/L (135-145); Total Protein 7.7 g/dL (6.5-8.0)
[2023-06-18 17:30] LABS: Amphetamine Screen Urine Not Detected (Not Detect); Barbiturates, Urine Not Detected (Not Detect); Benzodiazepines Screen Urine Not Detected (Not Detect); Cannabinoid Screen Urine Not Detected (Not Detect); Cocaine Screen Urine Not Detected (Not Detect); Fentanyl, urine Not Detected (Not Detect); Opiate Screen Urine Not Detected (Not Detect); Phencyclidine Screen Urine Not Detected (Not Detect)
[2023-06-18 17:44] LABS: Salicylate < 5.0 mg/dL (15-30)
[2023-06-18 18:03] LABS: Iron 7 mcg/dL (30-160); Percent Iron Saturation 2 % (15-50); Total Iron Binding Capacity 457 mcg/dL (228-428); Unsaturated Iron Binding 450 ug/dL
[2023-06-18 18:18] LABS: Ferritin 2 ng/mL (10-122)
[2023-06-18 18:31] LABS: Folate 15.8 ng/mL (> or = 4.0)
[2023-06-18 18:34] LABS: Vitamin B12 410 pg/mL (200-900)
[2023-06-18] MEDS: Ferrous Sulfate 324 MG TABLET.DR PO (19:24)
--- NOTE | 2023-06-18 19:30 | PC.NURSE ---
patient appears to remain at rest on the whole, t/w administered iron and gave client some info on taking iron (absorption etc) patient quiet, withdrawn, patient appears in no distress.
--- NOTE | 2023-06-18 21:05 | MHC.CARE ---
Pt was referred to [facility] and [facility]. Contacted [facility] to activate referral. Pt's referral will be reviewed for possible admission in morning.
[2023-06-18] MEDS: LORazepam 1 MG TABLET PO (21:43)
[2023-06-19 05:19] VITALS: BP 124/84; PULSE 76; RESP 16; TEMP 37.2; O2SAT 100
--- NOTE | 2023-06-19 07:21 | PC.NURSE ---
PT IS SLEEPING RESP EVEN AND UNLABORED. WILL CONTINUE TO MONITOR.
[2023-06-19 07:33] VITALS: RESP 16
--- NOTE | 2023-06-19 07:33 | MHC.EDTECH ---
Patient asleep, respirations even and unlabored.
--- NOTE | 2023-06-19 07:55 | MHC.CARE ---
Call to [facility] to activate referral
--- NOTE | 2023-06-19 08:09 | PC.NURSE ---
PT AMB (I) GAIT STEADY TO USE THE PHONE.
[2023-06-19 08:25] VITALS: BP 109/70; PULSE 95; RESP 16; TEMP 36.6; O2SAT 100
--- NOTE | 2023-06-19 08:28 | PC.NURSE ---
PT IS A/O X 4 NO SOB/THO NOTED SPEAKS IN FULL SENTENCES. PT DENIES ANY PAIN/DISC. PT DENIES ANY SI/HI/HALLUCINATIONS. PT REFUSED BREAKFAST AT THIS TIME, STATING THAT SHE WILL DRINK HER PITCHER OF WATER. PT AWARE OF PLAN OF CARE. WILL CONTINUE TO MONITOR.
--- NOTE | 2023-06-19 09:42 | MHC.CARE ---
Call to [facility] to follow up on referral for [facility] for Pt. It was reported that Pt had been screened and approved. A call will be made to the unit/pt to coordinate a time for intake.
[2023-06-19] MEDS: Ferrous Sulfate 324 MG TABLET.DR PO (10:35)
--- NOTE | 2023-06-19 10:36 | MHC.CARE ---
Pt was notified that she had been accepted to [facility] in [place]. Pt noted that they were agreeable to go and were also told that they needed to go home, gather some belongings, and head straight to respite. Pt affirmed that they understood. Pod nurse and covering ER MD, were made aware and agreed to discharge. Pt was provided with address and phone number to respite.
--- NOTE | 2023-06-19 10:37 | PC.NURSE ---
PT DENIES ANY DIZZINESS/LIGHTHEADEDNESS. PT TO BE D/C TO RESPITE. WILL CONTINUE TO MONITOR.
[2023-06-19 11:08] VITALS: BP 109/79; PULSE 95; RESP 16; TEMP 36.6; O2SAT 100
== END 2023-06-19 11:20 | disposition other institution (70) ==
PROVIDERS: Student in an Organized Health Care Education/Training Program; Emergency Provider Emergency Medicine Emergency Medical Services; PCP Internal Medicine
DX: R45.851 Suicidal ideations (principal); F33.9 Major depressive disorder, recurrent, unspecified; D50.9 Iron deficiency anemia, unspecified; Z91.51 Personal history of suicidal behavior; Z11.52 Encounter for screening for COVID-19
CPT/HCPCS: 36415; 80053; 80179; 80307; 81001; 81025; 82607; 82728; 82746; 83540; 85025; 87635; 99285; S9485

== ENCOUNTER 2023-07-19 11:02 | Outpatient (REF) | payer OTHER, SELFPAY ==
[2023-07-19 11:48] LABS: Eosinophils Percent Auto 0.6 % (0-4); Imm Gran Abs Auto 0.01 X10*3/uL (0.00-0.03); Imm Gran Pct Auto 0.3 % (0.0-0.4); MANUAL DIFF FLAG SCAN; Mean Corpuscular Volume 65.1 fL (80.0-98.0); SCAN SMEAR FLAG 1
[2023-07-19 11:51] LABS: Basophils Percent Auto 0.6 % (0-2); Hematocrit 31.1 % (37.0-47.0); Hemoglobin 8.9 g/dl (12.0-16.0); Immature Retic Fraction 8.8 % (3.0-15.9); Lymphocytes Absolute Auto 1.4 X10*3/uL (1.2-4.9); Lymphocytes Percent Auto 37.2 % (20-40); Mean Corpuscular HGB Conc 28.6 g/dl (31.0-35.0); Mean Corpuscular Hemoglobin 18.6 pg (27.0-33.0); Mean Platelet Volume 9.2 fL (9.4-12.3); Monocytes Absolute Auto 0.3 X10*3/uL (0.1-1.2); Monocytes Percent Auto 7.7 % (2-11); Neutrophils Percent Auto 53.6 % (45-73); Red Blood Count 4.78 X10*6/uL (4.20-5.50); Red Cell Distribution Width 20.9 % (11.0-16.0); Reticulocyte Percent 0.5 % (0.5-1.8); Reticulocytes Absolute 0.023 X10*6/uL (0.026-0.095); White Blood Count 3.6 X10*3/uL (4.8-10.8)
[2023-07-19 12:13] LABS: Platelet Count 320 X10*3/uL (160-400)
[2023-07-19 12:15] LABS: SLIDE REVIEW VERIFIED
[2023-07-19 12:36] LABS: Alanine Aminotransferase 16 U/L (0-31); Albumin Level 4.6 g/dL (3.5-5.0); Alkaline Phosphatase 42 U/L (39-117); Anion Gap 13 (12-20); Aspartate Amino Transferase 14 U/L (5-31); Blood Urea Nitrogen 14 mg/dL (9-16); Calcium 9.6 mg/dL (8.4-10.2); Carbon Dioxide 27 mmol/L (22-29); Chloride 106 mmol/L (96-108); Cholesterol 153 mg/dL (<200); Estimated Glomerular Filt Rate > 60; Glucose Random 89 mg/dL (60-115); HDL Cholesterol 63 mg/dL (>40); Iron 12 mcg/dL (30-160); LDL Cholesterol Calculated 80 mg/dL (<100); Magnesium 2.2 mg/dL (1.6-2.6); Percent Iron Saturation 3 % (15-50); Potassium 4.5 mmol/L (3.3-5.1); Sodium 141 mmol/L (135-145); Total Iron Binding Capacity 452 mcg/dL (228-428); Total Protein 7.9 g/dL (6.5-8.0); Triglycerides 52 mg/dL (<150); Unsaturated Iron Binding 440 ug/dL
[2023-07-19 12:55] LABS: Ferritin 3 ng/mL (10-122); Free T4 (Free Thyroxine) 0.81 ng/dL (0.71-1.85); Thyroid Stimulating Hormone 1.74 uIU/mL (0.32-4.0); Vitamin D 25-OH Total 20.8 ng/mL (>30)
[2023-07-19 13:04] LABS: Folate 15.2 ng/mL (> or = 4.0); Vitamin B12 432 pg/mL (200-900)
== END 2023-07-19 11:03 | disposition home or self-care (01) ==
LOC: HO.LAB 11:02
PROVIDERS: PCP Internal Medicine; Visit Provider Internal Medicine
DX: Z98.84 Bariatric surgery status (principal); E78.00 Pure hypercholesterolemia, unspecified; D64.9 Anemia, unspecified
CPT/HCPCS: 36415; 80053; 80061; 82306; 82607; 82728; 82746; 83540; 83735; 84439; 84443; 85025; 85045

== ENCOUNTER 2023-07-23 14:06 | Outpatient (AMB) | payer OTHER, SELFPAY ==
--- NOTE | 2023-07-23 14:08 | MHC.PC.OV ---
Vital Signs 07/23/23 14:09 Height 5 ft 3 in Weight 139 lb BMI 24.6 BP 98/64 Blood Pressure Location Lt brachial Position Sitting Pulse 74 Pulse Source Pulse Oximeter Pulse Oximetry (%) 96 Oxygen Delivery Method Room Air Intake Visit Reasons: anemia Food And Nutrition Services Assistant Required: No Allergies No Known Allergies [No Known Allergies*] Allergy (Verified 07/23/23 14:09) Tobacco use date assessed: 07/23/23 Dental Screening Dental Screen Date: 07/23/23 Did you have a dental visit in the last 12 months?: Yes Did you have a dental problem in the last 6 months where you did not have access to dental care?: No Was dental information given to patient?: Patient has dentist HPI anemia HPI Details 33-year-old female with a history of laparoscopic sleeve gastrectomy anemia generalized anxiety disorder GERD coming in for follow-up. Last seen in April 2023 review of the notes was in the emergency room in June 2023 4 suicidal ideation. Blood work done recently 07/19/2023 shows anemia to a hemoglobin of 8.9 and hematocrit 31 microcytic. Iron deficient with ferritin of 3 in iron of 12 [facility] Medical History (Updated 07/23/23 @ 14:23 by Dylan Jeter MD) Anemia BMI 34.0-34.9,adult GERD (gastroesophageal reflux disease) MDD (major depressive disorder), recurrent episode, moderate Vitamin B12 deficiency Anemia Back pain Tinea versicolor Family history of breast cancer Annual physical exam Vitamin D deficiency Surgical History History of sleeve gastrectomy Acute meniscal tear of right knee History of cholecystectomy Family History (Updated 04/20/23 @ 14:14 by Dylan Jeter MD) Maternal Grandfather Myocardial infarct Mother Breast cancer Maternal Grandmother Breast cancer Maternal Aunt Breast cancer Multiple myeloma Maternal Grandfather Colon cancer Maternal Uncle Substance abuse Father No problems noted. Sister Arthritis Social History (Updated 01/01/23 @ 09:55 by Heather Cook CMA) Housing: Apartment Are you a primary patient care to a significant other at home: No Do you presently have visiting nurse or other home services: No Alcohol intake: never Patient Tobacco Use Status: Never used Tobacco e-Cigarette/Vaping Use: Never Used service: No Current occupational status: employed Cognitive needs: No Hearing needs: No Vision needs: No Questionnaire Thrive Questionnaire Date Thrive assessed: 04/20/23 AUDIT C Alcohol Use Questionnaire (AUDIT-C) 1. How often do you have a drink containing alcohol?: Never 2. How many drinks containing alcohol do you have on a typical day when you are drinking?: 1 or 2 3. How often do you have six or more drinks on one occasion?: Never Total Score: 0 HERRERA-7 AMB Questionnaire HERRERA-7 Date HERRERA - 7 assessed: 04/20/23 Source: Developed by Drs. Moses Whaley, Madai Mart, Octaviano Myrick and colleagues, with an educational lindsay from [email or web address]. Physical exam (Primary Care) Vital Signs: Oxygen Delivery Method Room Air 07/23/23 14:09 BMI result Body Mass Index 24.6 Tobacco/Smoking Status: Tobacco use Status Tobacco use date assessed 04/20/23 07/23/23 14:08 Patient Tobacco Use Status Never used Tobacco 07/23/23 14:08 e-Cigarette/Vaping Use Never Used 07/23/23 14:08 Thrive Assessment: Date of Thrive Assessment Date Thrive assessed 04/20/23 07/23/23 14:08 Const General: alert; No acute distress Eyes Conjunctivae: conjunctivae normal Resp Auscultation: clear to auscultation bilaterally Cardio Rate: regular rate Rhythm: regular rhythm GI Inspection: Yes normal to inspection Extrem General: Yes normal to inspection and No edema Assessment and Plan Assessment & Plan (1) Iron deficiency anemia: Code(s): D50.9 - Iron deficiency anemia, unspecified Plan: Discussed on the need to take iron with vitamin-C (2) Generalized anxiety disorder: Comment: CHD, therapist 2x a week , RX once a month Code(s): F41.1 - Generalized anxiety disorder Plan: Patient has been referred to Psychiatry and counseling (3) S/P laparoscopic sleeve gastrectomy: Comment: November 2020 Code(s): Z98.84 - Bariatric surgery status Plan: Continue to follow-up with bariatric surgeon (4) GERD (gastroesophageal reflux disease): Code(s): K21.9 - Gastro-esophageal reflux disease without esophagitis Plan: Avoid the foods that causes that usually spicy foods, tomato products, juices, coffee, soda and foods that your sensitive to. After eating do not lie down, allow 3-4 hours before in lie down. And keep the head of bed above 30 degrees to avoid the acid from going up. (5) Constipation: Code(s): K59.00 - Constipation, unspecified Orders: Orders Complete Blood Count Auto Diff 3 Months D50.9 - Iron deficiency anemia, unspecified IRON PROFILE 3 Months D50.9 - Iron deficiency anemia, unspecified Ferritin 3 Months D50.9 - Iron deficiency anemia, unspecified Reticulocyte Count 3 Months D50.9 - Iron deficiency anemia, unspecified Vitamin B12 and Folate 3 Months D50.9 - Iron deficiency anemia, unspecified Medications: New sennosides-docusate sodium 8.6-50 mg (Senna-S) 1 tab-cap PO BEDTIME 60 tabs 3RF K59.00 - Constipation, unspecified Coding Level of Care Code Est Pt Level 4 (74662) Diagnoses Iron deficiency anemia D50.9 Generalized anxiety disorder F41.1 S/P laparoscopic sleeve gastrectomy Z98.84 GERD (gastroesophageal reflux disease) K21.9 Constipation K59.00
[2023-07-23 14:09] VITALS: BP 98/64; PULSE 74; O2SAT 96; BMI 24.6
== END 2023-07-23 14:26 | disposition home or self-care (01) ==
PROVIDERS: PCP Internal Medicine; Visit Provider Internal Medicine
DX: D50.9 Iron deficiency anemia, unspecified (principal); F41.1 Generalized anxiety disorder; Z98.84 Bariatric surgery status; K21.9 Gastro-esophageal reflux disease without esophagitis; K59.00 Constipation, unspecified
CPT/HCPCS: 99214

== ENCOUNTER → 2023-08-10 12:59 | Outpatient (BNV) | payer OTHER, SELFPAY | PROVIDERS: PCP Internal Medicine; Referring Provider Internal Medicine; Visit Provider Internal Medicine | DX: D50.9 Iron deficiency anemia, unspecified (principal) | CPT/HCPCS: 99204; 99213; G2211 ==

== ENCOUNTER 2023-10-29 15:11 | Outpatient (AMB) | payer MEDICAID, SELFPAY ==
--- NOTE | 2023-10-29 15:13 | A.OFFVIS_ITS ---
Vital Signs 3 10/29/23 15:20 Height 5 ft 3 in Weight 150 lb 5.684 oz BMI 26.6 BP 100/68 Blood Pressure Location Lt brachial Position Sitting Pulse 75 Intake Visit Reasons: Gastroesophageal reflux disease (GERD) Intake Note: Leia presents to in office visit today as a new patient for evaluation and management of GERD. CC: Patient c/o constipation, rectal bleeding when constipated, abdominal bloating, and GERD . She states that when she was a child she had gallstones and suffered from gastritis. She is now s/p cholecystectomy. Patient would like to discuss the possibility of having an EGD and colonoscopy done. Allergies No Known Allergies [No Known Allergies*] Allergy (Verified 10/29/23 15:26) HPI HPI Gastroesophageal reflux disease (GERD): Details: 33-year-old female here for initial evaluation of GERD. She is referred by Dylan Jeter of [facility] primary care. PMX Morbid obesity Vertigo Constipation GERD Fibromyalgia syndrome Depression and anxiety * SURGICAL HISTORY Sleeve gastrectomy Cholecystectomy Right knee meniscus tear * ALLERGIES: NKDA * [facility] LABS: Laboratory Tests 07/19/23 09/21/23 11:19 14:03 WBC 5.7 Hgb 11.8 L D Hct 38.6 D MCV 78.0 L MCH 23.8 L MCHC 30.6 L Plt Count 227 D Estimated GFR > 60 Ferritin 19 Total Bilirubin 1.0 AST 14 ALT 16 Alkaline Phosphatase 42 TSH 1.74 Free T4 0.81 UPPER GI SERIES 08/22/20 IMPRESSION: Moderate gastroesophageal reflux without hiatal hernia. Rest of the upper GI exam is unremarkable. TODAY'S VISIT Onset 8 yrs old with gastritis that was severe, and at age 17 gallstones were discovered. She then had a cholecystectomy. She has not had a gastritis episode since then. She also has had an sleerve gastriectomy and EGD at thiat time with all normal findings. She had anxiety about damaging something with past episodes. She suffers severe CIC not moving her bowels for many days and when she does she will have severe pain and near seizures. She also has hemorrhoids. She will have to use dulcolax to move her bowels, she will take it about once to twice a week. Her mother how is my patient suffers CIC (john patel 04/08/1963) she is unsure about CRC Or polyps. Return office visit in 5 weeks to evaluate her response to adding Linzess to her regimen. [facility] Medical History MDD (major depressive disorder), recurrent episode, moderate Generalized anxiety disorder Annual physical exam Anemia BMI 34.0-34.9,adult GERD (gastroesophageal reflux disease) Vitamin B12 deficiency Anemia Back pain Tinea versicolor Family history of breast cancer Vitamin D deficiency Surgical History S/P laparoscopic sleeve gastrectomy History of sleeve gastrectomy Acute meniscal tear of right knee History of cholecystectomy Family History Maternal Grandfather Myocardial infarct Mother Breast cancer Maternal Grandmother Breast cancer Maternal Aunt Breast cancer Multiple myeloma Maternal Grandfather Colon cancer Maternal Uncle Substance abuse Father No problems noted. Sister Arthritis Social History Household Members: Family Housing: Apartment Are you a primary rn complex care to a significant other at home: No Do you presently have visiting nurse or other home services: No Alcohol intake: never Patient Tobacco Use Status: Never used Tobacco e-Cigarette/Vaping Use: Never Used service: No Current occupational status: employed Cognitive needs: No Hearing needs: No Vision needs: No Review of Systems Const Denies fatigue, Denies fever(s), Denies night sweats, Denies poor appetite and Denies weight loss Eyes Details: glasses Reports requires corrective lenses ENT Reports Normal hearing present, Denies dental pain, Denies dysphagia, Denies hearing loss, Denies mouth pain, Denies odynophagia, Denies throat swelling, Denies tongue swelling and Reports other (Dentition adequate) Card Reports no additional complaints Resp Reports no additional complaints GI Details: Reports abdominal pain, Denies melena, Denies bloating, Denies hematochezia, Reports constipation, Denies GI cramping, Denies dysphagia, Denies excessive flatus, Denies early satiety, Reports heartburn, Denies diarrhea, Denies nausea, Denies odynophagia, Denies vomiting and Denies hematemesis Skin/Breast Denies pruritus, Denies lesions, Denies rash and Denies jaundice Neuro Reports Normal hearing present and Denies Abnormal speech present Endo Denies fatigue Aller/Immun Denies throat swelling and Denies tongue swelling Physical Exam Vital Signs: Last Vital Signs Pulse 75 10/29/23 15:20 BP 100/68 10/29/23 15:20 BMI result Body Mass Index 26.6 Const General: cooperative, no acute distress, well developed and well groomed Nutritional Appearance: average body habitus and well nourished Orientation/consciousness: oriented to person, oriented to place and oriented to time Limitations: No language barrier HEENT Head: Yes normocephalic and Yes atraumatic Eyes General: appearance normal, both eyes and all related structures Pupils: Equal, round and reactive pupils present Neck Neck: Yes normal visual inspection and Yes no lymphadenopathy Thyroid: Thyroid normal Resp Effort & Inspection: normal respiratory effort and able to speak in complete sentences Auscultation: clear to auscultation bilaterally Cardio Rate: regular rate Rhythm: regular rhythm Heart sounds: Normal, physiologic split S2 sound present Peripheral pulses: radial pulses present and posterior tibial pulses present GI Inspection: No distended, No Abdominal panniculus present, Yes scar and Yes striae Palpation (GI): Soft to palpation, nontender, no guarding, not rigid and No hepatosplenomegaly present Percussion: Yes normal to percussion Auscultation: normal bowel sounds Rectal Exam - Female: deferred Abdomen image: 2 1. surgical scars 2. 3. Skin General skin exam: no rashes or lesions noted, turgor normal, skin not dry, no jaundice, No spider nevi and no striae Rashes: no rashes Nails: normal Neuro General: oriented to person, oriented to place and oriented to time Cranial nerves: Yes Equal, round and reactive pupils present and Yes Normal hearing present Speech: No Abnormal speech present Extrem General: Yes normal to inspection, No clubbing, No cyanosis and No edema Psych Appearance: grossly normal and well kempt Mental Status: mental status grossly normal Speech and movement: Normal speech and movement present Affect: normal affect Attitude: cooperative Thought process: Normal thought process present and not confabulating Thought content: Normal thought content present Insight: Limited insight present (Psych) Judgement: Limited judgement present (Psych) Assessment & Plan Assessment & Plan (1) GERD (gastroesophageal reflux disease): Code(s): K21.9 - Gastro-esophageal reflux disease without esophagitis Category: Medical (2) Constipation: Code(s): K59.00 - Constipation, unspecified Category: Medical (3) Iron deficiency anemia: Code(s): D50.9 - Iron deficiency anemia, unspecified Category: Medical (4) Rectal bleeding: Code(s): K62.5 - Hemorrhage of anus and rectum Category: Medical (5) Pre-op examination: Code(s): Z01.818 - Encounter for other preprocedural examination Category: Medical Plan Onset 8 yrs old with gastritis that was severe, and at age 17 gallstones were discovered. She then had a cholecystectomy. She has not had a gastritis episode since then. She also has had an sleerve gastriectomy and EGD at thiat time with all normal findings. She had anxiety about damaging something with past episodes. She suffers severe CIC not moving her bowels for many days and when she does she will have severe pain and near seizures. She also has hemorrhoids. She will have to use dulcolax to move her bowels, she will take it about once to twice a week. Her mother how is my patient suffers CIC (john patel 04/08/1963) she is unsure about CRC Or polyps. There are no prior problems with anesthesia or sedation. She denies any cardiac or respiratory problems. There are no infectious disease problems. Return office visit in 5 weeks to evaluate her response to adding Linzess to her regimen. Orders: Orders 2 EGD/[place] Combo - GI Use Only 10/29/23 K21.9 - Gastro-esophageal reflux disease without esophagitis, K62.5 - Hemorrhage of anus and rectum, D50.9 - Iron deficiency anemia, unspecified Medications: New 2 linaclotide (Linzess) 72 mcg PO QAM 30 caps 3RF K59.00 - Constipation, unspecified peg 3350-electrolytes 236-22.74-6.74 -5.86 gram (Golytely) until fecal effluent is clear; do not exceed a total volume of 2,000 mL 240 mL PO Q10M 4,000 mL 0RF 1 day Z12.11 - Encounter for screening for malignant neoplasm of colon bisacodyl (Dulcolax (bisacodyl)) 10 mg (2 x 5 mg) PO BEDTIME 4 tabs 0RF 2 days On Hold 2 sennosides-docusate sodium 8.6-50 mg (Senna-S) Hold Comment: Doctor's Order 1 tab-cap PO BEDTIME 60 tabs 3RF K59.00 - Constipation, unspecified Coding Level of Care Code New Pt Level 3 (16432) Diagnoses GERD (gastroesophageal reflux disease) K21.9 Constipation K59.00 Iron deficiency anemia D50.9 Rectal bleeding K62.5 Pre-op examination Z01.818
[2023-10-29 15:20] VITALS: BP 100/68; PULSE 75; BMI 26.6
== END 2023-10-29 16:02 | disposition home or self-care (01) ==
PROVIDERS: PCP Internal Medicine; Visit Provider Nurse Practitioner
DX: K21.9 Gastro-esophageal reflux disease without esophagitis (principal); K59.00 Constipation, unspecified; D50.9 Iron deficiency anemia, unspecified; K62.5 Hemorrhage of anus and rectum; Z01.818 Encounter for other preprocedural examination
CPT/HCPCS: 99203

== ENCOUNTER → 2023-10-29 15:11 | Outpatient (BNVA) | payer OTHER, SELFPAY | PROVIDERS: PCP Internal Medicine; Visit Provider Nurse Practitioner | DX: Z01.818 Encounter for other preprocedural examination (principal); K21.9 Gastro-esophageal reflux disease without esophagitis; K59.00 Constipation, unspecified; R14.0 Abdominal distension (gaseous); D50.9 Iron deficiency anemia, unspecified; K62.5 Hemorrhage of anus and rectum; Z90.49 Acquired absence of other specified parts of digestive tract | CPT/HCPCS: 99212 ==

== ENCOUNTER 2023-12-02 11:19 | Outpatient (AMB) | payer OTHER, SELFPAY ==
--- NOTE | 2023-12-02 11:21 | A.OFFVIS_ITS ---
Vital Signs 12/02/23 11:27 Height 5 ft 3 in Weight 150 lb 12.739 oz BMI 26.7 BP 104/68 Blood Pressure Location Rt brachial Position Sitting Pulse 86 Pulse Source Pulse Oximeter Pulse Oximetry (%) 97 Oxygen Delivery Method Room Air Intake Visit Reasons: 5 weeks CIC, evla linzess Intake Note: Leia presents in office today for a scheduled 5 week FUV. CC; Pt reports that they have been doing well since their last visit. Pt has been noticing improvements since starting the linzess. Pt denies any complications to this point. Pt does still report very intermittent constipa tion, however; it is greatly reduced since starting linzess. Quality Assurance Calibrator Required: No Allergies No Known Allergies [No Known Allergies*] Allergy (Verified 12/02/23 11:23) HPI HPI 5 weeks CIC, evla linzess: Details: Assessment & Plan (1) GERD (gastroesophageal reflux disease): Code(s): K21.9 - Gastro-esophageal reflux disease without esophagitis Category: Medical (2) Constipation: Code(s): K59.00 - Constipation, unspecified Category: Medical (3) Iron deficiency anemia: Code(s): D50.9 - Iron deficiency anemia, unspecified Category: Medical (4) Rectal bleeding: Code(s): K62.5 - Hemorrhage of anus and rectum Category: Medical (5) Pre-op examination: Code(s): Z01.818 - Encounter for other preprocedural examination Category: Medical Plan Onset 8 yrs old with gastritis that was severe, and at age 17 gallstones were discovered. She then had a cholecystectomy. She has not had a gastritis epis ode since then. She also has had an sleerve gastriectomy and EGD at thiat time with all normal findings. She had anxiety about damaging something with past episodes. She suffers severe CIC not moving her bowels for many days and when she does she will have severe pain and near seizures. She also has hemorrhoids. She will have to use dulcolax to move her bowels, she will take it about once to twice a week. Her mother how is my patient suffers CIC (john patel 04/08/1963) she is unsure about CRC Or polyps. There are no prior problems with anesthesia or sedation. She denies any cardiac or respiratory problems. There are no infectious disease problems. Return office visit in 5 weeks to evaluate her response to adding Linzess to her regimen. Orders: Orders EGD/[place] Combo - GI Use Only 10/29/23 K21.9 - Gastro-esophageal reflux disease without esophagitis, K62.5 - Hemorrhage of anus and rectum, D50.9 - Iron de ficiency anemia, unspecified Medications: New linaclotide (Linzess) 72 mcg PO QAM 30 caps 3RF K59.00 - Constipation, unspecified peg 3350-electrolytes 236-22.74-6.74 -5.86 gram (Golytely) until fecal effluent is clear; do not exceed a total volume of 2,000 mL 240 mL PO Q10M 4,000 mL 0RF 1 day Z12.11 - Encounter for screening for malignant neoplasm of colon bisacodyl (Dulcolax (bisacodyl)) 10 mg (2 x 5 mg) PO BEDTIME 4 tabs 0RF 2 days On Hold sennosides-docusate sodium 8.6-50 mg (Senna-S) Hold Comment: Doctor's Order 1 tab-cap PO BEDTIME 60 tabs 3RF K59.00 - Constipation, unspecified EGD/COLONOSCOPY BIOPSY TODAY'S VISIT She feels that the LInzess at 72mcg is helping her well. She is going through some mental health problems because of insurance lapse and medication lapse, but she has her meds now and is being followed closely. Has not yet heard re: colonoscopy. Return office visit in 3 months to make sure she has a colonoscopy and make sure her constipation remains stabilized. [facility] Medical History MDD (major depressive disorder), recurrent episode, moderate Generalized anxiety disorder Annual physical exam Anemia BMI 34.0-34.9,adult GERD (gastroesophageal reflux disease) Vitamin B12 deficiency Anemia Back pain Tinea versicolor Family history of breast cancer Vitamin D deficiency Surgical History S/P laparoscopic sleeve gastrectomy History of sleeve gastrectomy Acute meniscal tear of right knee History of cholecystectomy Family History Maternal Grandfather Myocardial infarct Mother Breast cancer Maternal Grandmother Breast cancer Maternal Aunt Breast cancer Multiple myeloma Maternal Grandfather Colon cancer Maternal Uncle Substance abuse Father No problems noted. Sister Arthritis Social History Household Members: Family Housing: Apartment Are you a primary acute care certified nursing assistant to a significant other at home: No Do you presently have visiting nurse or other home services: No Alcohol intake: never Patient Tobacco Use Status: Never used Tobacco e-Cigarette/Vaping Use: Never Used service: No Current occupational status: employed Cognitive needs: No Hearing needs: No Vision needs: No Review of Systems Const Denies fatigue, Denies fever(s), Denies night sweats, Denies poor appetite and Denies weight loss Eyes Details: gl;asses Reports requires corrective lenses ENT Reports Normal hearing present, Denies dental pain, Denies dysphagia, Denies hearing loss, Denies mouth pain, Denies odynophagia, Denies throat swelling, Denies tongue swelling and Reports other (Dentition adequate) Card Reports no additional complaints Resp Reports no additional complaints GI Details: Denies abdominal pain, Denies melena, Reports bloating, Denies hematochezia, Reports constipation, Denies GI cramping, Denies dysphagia, Denies excessive flatus, Denies early satiety, Denies heartburn, Denies diarrhea, Denies nausea, Denies odynophagia, Denies vomiting and Denies hematemesis Skin/Breast Denies pruritus, Denies lesions, Denies rash and Denies jaundice Neuro Reports Normal hearing present and Denies Abnormal speech present Psych Reports abnormal sleep pattern, Reports depression, Reports mood swings, Reports panic attacks, Denies homicidal ideation and Denies suicidal ideation Endo Denies fatigue Aller/Immun Denies throat swelling and Denies tongue swelling Physical Exam Vital Signs: Last Vital Signs Pulse 86 12/02/23 11:27 BP 104/68 09/26/24 11:27 Pulse Ox 97 12/02/23 11:27 Oxygen Delivery Method Room Air 12/02/23 11:27 BMI result Body Mass Index 26.7 Const General: cooperative, no acute distress, well developed and well groomed Nutritional Appearance: average body habitus and well nourished Orientation/consciousness: oriented to person, oriented to place and oriented to time Limitations: No language barrier HEENT Head: Yes normocephalic and Yes atraumatic Eyes General: appearance normal, both eyes and all related structures Pupils: Equal, round and reactive pupils present Neck Neck: Yes normal visual inspection and Yes no lymphadenopathy Thyroid: Thyroid normal Resp Effort & Inspection: normal respiratory effort and able to speak in complete sentences Auscultation: clear to auscultation bilaterally Cardio Rate: regular rate Rhythm: regular rhythm Heart sounds: Normal, physiologic split S2 sound present Peripheral pulses: radial pulses present and posterior tibial pulses present GI Inspection: No distended and No Abdominal panniculus present Palpation (GI): Soft to palpation, nontender, no guarding, not rigid and No hepatosplenomegaly present Percussion: Yes normal to percussion Auscultation: normal bowel sounds Rectal Exam - Female: deferred Skin General skin exam: no rashes or lesions noted, turgor normal, skin not dry, no jaundice, No spider nevi and no striae Rashes: no rashes Nails: normal Neuro General: oriented to person, oriented to place and oriented to time Cranial nerves: Yes Equal, round and reactive pupils present and Yes Normal hearing present Speech: No Abnormal speech present Extrem General: Yes normal to inspection, No clubbing, No cyanosis and No edema Psych Appearance: grossly normal and well kempt Mental Status: mental status grossly normal Speech and movement: Normal speech and movement present Affect: Anxious affect present Attitude: cooperative Thought process: Normal thought process present and not confabulating Thought content: Normal thought content present Insight: Good insight present (Psych) Judgement: Good judgement present (Psych) Assessment & Plan Assessment & Plan (1) Constipation: Code(s): K59.00 - Constipation, unspecified Category: Medical (2) GERD (gastroesophageal reflux disease): Code(s): K21.9 - Gastro-esophageal reflux disease without esophagitis Category: Medical Plan She feels that the LInzess at 72mcg is helping her well. She is going through some mental health problems because of insurance lapse and medication lapse, but she has her meds now and is being followed closely. Has not yet heard re: colonoscopy. Return office visit in 3 months to make sure she has a colonoscopy and make sure her constipation remains stabilized. Coding Level of Care Code Est Pt Level 3 (96192) Diagnoses Constipation K59.00 GERD (gastroesophageal reflux disease) K21.9
[2023-12-02 11:27] VITALS: BP 104/68; PULSE 86; O2SAT 97; BMI 26.7
== END 2023-12-02 12:04 | disposition home or self-care (01) ==
PROVIDERS: PCP Internal Medicine; Visit Provider Nurse Practitioner
DX: K59.00 Constipation, unspecified (principal); K21.9 Gastro-esophageal reflux disease without esophagitis
CPT/HCPCS: 99213

== ENCOUNTER → 2023-12-02 11:19 | Outpatient (BNVA) | payer OTHER, SELFPAY | PROVIDERS: PCP Internal Medicine; Visit Provider Nurse Practitioner | DX: K21.9 Gastro-esophageal reflux disease without esophagitis (principal); K59.00 Constipation, unspecified; Z90.49 Acquired absence of other specified parts of digestive tract; Z79.899 Other long term (current) drug therapy | CPT/HCPCS: 99212 ==

== ENCOUNTER 2023-12-08 11:05 | Outpatient (REF) | payer OTHER, SELFPAY ==
[2023-12-08 11:29] LABS: MANUAL DIFF FLAG NO
[2023-12-08 11:57] LABS: Basophils Percent Auto 0.4 % (0-2); Eosinophils Percent Auto 0.5 % (0-4); Hematocrit 43.8 % (37.0-47.0); Hemoglobin 14.7 g/dl (12.0-16.0); Imm Gran Abs Auto 0.02 X10*3/uL (0.00-0.03); Imm Gran Pct Auto 0.4 % (0.0-0.4); Immature Retic Fraction 4.3 % (3.0-15.9); Lymphocytes Absolute Auto 1.3 X10*3/uL (1.2-4.9); Mean Corpuscular HGB Conc 33.6 g/dl (31.0-35.0); Mean Corpuscular Hemoglobin 28.5 pg (27.0-33.0); Mean Corpuscular Volume 84.9 fL (80.0-98.0); Mean Platelet Volume 9.8 fL (9.4-12.3); Monocytes Absolute Auto 0.3 X10*3/uL (0.1-1.2); Monocytes Percent Auto 6.2 % (2-11); Neutrophils Absolute Auto 3.8 x10*3/uL (2.0-8.3); Neutrophils Percent Auto 69.5 % (45-73); Platelet Count 206 X10*3/uL (160-400); Red Blood Count 5.16 X10*6/uL (4.20-5.50); Red Cell Distribution Width 12.6 % (11.0-16.0); Retic HGB Equivalent 32.6 pg (30.0-35.0); Reticulocyte Percent 1.3 % (0.5-1.8); Reticulocytes Absolute 0.065 X10*6/uL (0.026-0.095); White Blood Count 5.5 X10*3/uL (4.8-10.8)
[2023-12-08 12:28] LABS: Iron 300 mcg/dL (30-160); Percent Iron Saturation 73 % (15-50); Total Iron Binding Capacity 411 mcg/dL (228-428); Unsaturated Iron Binding 111 ug/dL
[2023-12-08 12:41] LABS: Ferritin 34 ng/mL (10-122)
[2023-12-08 12:56] LABS: Folate 11.4 ng/mL (> or = 4.0); Vitamin B12 589 pg/mL (200-900)
== END 2023-12-08 11:06 | disposition home or self-care (01) ==
LOC: HO.LAB 11:05
PROVIDERS: PCP Internal Medicine; Visit Provider Internal Medicine
DX: D50.9 Iron deficiency anemia, unspecified (principal)
CPT/HCPCS: 36415; 82607; 82728; 82746; 83540; 85025; 85045

== ENCOUNTER 2023-12-09 15:16 | Outpatient (AMB) | payer OTHER, SELFPAY ==
--- NOTE | 2023-12-09 15:23 | MHC.PC.OV ---
Vital Signs 12/09/23 15:26 Height 5 ft 3 in Weight 149 lb 8 oz BMI 26.5 BP 100/70 Blood Pressure Location Lt brachial Position Sitting Pulse 85 Pulse Source Pulse Oximeter Pulse Oximetry (%) 98 Oxygen Delivery Method Room Air Intake Visit Reasons: Anemia Intake Note: Patient is here to follow up on Anemia. Molding Line Assistant Required: No House Shorer: Not Required per policy Accompanied by: Self / Same As Patient Allergies No Known Allergies [No Known Allergies*] Allergy (Verified 12/09/23 15:25) Tobacco use date assessed: 12/09/23 Dental Screening Dental Screen Date: 07/23/23 HPI Anemia HPI Details 33-year-old overweight female with a history of iron deficiency anemia generalized anxiety disorder status post laparoscopic sleeve gastrectomy GERD coming in for follow-up. Last seen in 07/26/2023. Review of the notes in December 01 was seen by Gastroenterology chronic idiopathic constipation and treated with Linzess. Patient will be having colonoscopy done soon. Patient is also being followed up by hematology oncology for iron deficiency anemia worsening since 2020 after her sleeve gastrectomy. Her anemia has improved after taking iron patient wants to follow-up with this and wants to hold off parenteral iron therapy. [facility] Medical History (Updated 12/09/23 @ 16:13 by Dylan Jeter MD) Generalized anxiety disorder MDD (major depressive disorder), recurrent episode, moderate Annual physical exam Anemia BMI 34.0-34.9,adult GERD (gastroesophageal reflux disease) Vitamin B12 deficiency Anemia Back pain Tinea versicolor Family history of breast cancer Vitamin D deficiency Surgical History (Updated 12/09/23 @ 16:07 by Dylan Jeter MD) S/P laparoscopic sleeve gastrectomy History of sleeve gastrectomy Acute meniscal tear of right knee History of cholecystectomy Family History (Updated 12/09/23 @ 15:40 by CAROLEE Knight) Maternal Grandfather Myocardial infarct Mother Breast cancer Maternal Grandmother Breast cancer Maternal Aunt Breast cancer Multiple myeloma Maternal Grandfather Colon cancer Maternal Uncle Substance abuse Father No problems noted. Sister Arthritis Other Mental health disorder Social History Household Members: Family Housing: Apartment Are you a primary manager medicare marketing to a significant other at home: No Do you presently have visiting nurse or other home services: No Alcohol intake: never Patient Tobacco Use Status: Never used Tobacco e-Cigarette/Vaping Use: Never Used Second Hand Smoke Exposure: No service: No Current occupational status: employed Cognitive needs: No Hearing needs: No Vision needs: Yes (Glasses) Questionnaire Thrive Questionnaire Date Thrive assessed: 04/20/23 Are you currently unemployed and looking for a job?: No HERRERA-7 AMB Questionnaire HERRERA-7 Date HERRERA - 7 assessed: 04/20/23 Source: Developed by Drs. Moses Whaley, Madai Mart, Octaviano Myrick and colleagues, with an educational lindsay from [employer]. Physical exam (Primary Care) Vital Signs: Last Vital Signs Pulse 85 12/09/23 15:26 BP 100/70 12/09/23 15:26 Pulse Ox 98 12/09/23 15:26 Oxygen Delivery Method Room Air 12/09/23 15:26 BMI result Body Mass Index 26.5 Tobacco/Smoking Status: Tobacco use Status Tobacco use date assessed 12/09/23 12/09/23 15:42 Patient Tobacco Use Status Never used Tobacco 12/09/23 15:42 e-Cigarette/Vaping Use Never Used 12/09/23 15:42 Thrive Assessment: Date of Thrive Assessment Date Thrive assessed 04/20/23 12/09/23 15:42 Const General: alert; No acute distress Eyes Conjunctivae: conjunctivae normal Resp Auscultation: clear to auscultation bilaterally Cardio Rate: regular rate Rhythm: regular rhythm GI Inspection: Yes normal to inspection Extrem General: Yes normal to inspection and No edema Office Procedures Flu Questionnaire Does the patient have a severe egg allergy?: No Does the patient have severe life threatening allergies?: No Does the patient have a fever or illness today?: No Has the patient ever had Guillain-Carleton Syndrome?: No Has the patient ever had any past reaction to a flu shot?: No Immunizations Fluarix Triv [id number] (PF) 45 mcg (15 mcg x 3)/0.5 mL IM syringe Performing Provider: Dylan Jeter MD [facility] Administered by: Isaac Guajardo RN on 12/09/23 15:53 Dose Route Admin Location Dispensed Lot Number Expiration Date [facility] [employer] 0.5 mL IM Left Deltoid 0.5 mL [id number] 09/04/24 [id number] Total Prestige VIS Given Date VIS Provided VIS Publication Date 12/09/23 Single Vaccine 20 Eligibility Eligibility Date Funding Source Not VF Eligible 12/09/23 Private Coding Level of Care Code Est Pt Level 4 (11901) Diagnoses Iron deficiency anemia D50.9 Rectal bleeding K62.5 GERD (gastroesophageal reflux disease) K21.9 S/P laparoscopic sleeve gastrectomy Z98.84 Generalized anxiety disorder F41.1 Assessment & Plan Assessment & Plan (1) Iron deficiency anemia: Code(s): D50.9 - Iron deficiency anemia, unspecified Category: Medical Plan: Resolved , enough iron already and knows causes constipation- with us decreasing iron , constipation will get better (2) Rectal bleeding: Code(s): K62.5 - Hemorrhage of anus and rectum Category: Medical Plan: Patient will be having colonoscopy done soon (3) GERD (gastroesophageal reflux disease): Code(s): K21.9 - Gastro-esophageal reflux disease without esophagitis Category: Medical Plan: Avoid the foods that causes that usually spicy foods, tomato products, juices, coffee, soda and foods that your sensitive to. After eating do not lie down, allow 3-4 hours before in lie down. And keep the head of bed above 30 degrees to avoid the acid from going up. (4) S/P laparoscopic sleeve gastrectomy: Comment: November 2020 Code(s): Z98.84 - Bariatric surgery status Category: Surgical Plan: Continue to follow-up with bariatric surgeon (5) Generalized anxiety disorder: Comment: CHD, therapist 2x a week , RX once a month Code(s): F41.1 - Generalized anxiety disorder Category: Medical Plan: continiue with counseling and therapy Orders: Orders Influenza [id number] Immunization Today Z23 - Encounter for immunization
[2023-12-09 15:26] VITALS: BP 100/70; PULSE 85; O2SAT 98; BMI 26.5
== END 2023-12-09 16:19 | disposition home or self-care (01) ==
PROVIDERS: PCP Internal Medicine; Visit Provider Internal Medicine
DX: D50.9 Iron deficiency anemia, unspecified (principal); K62.5 Hemorrhage of anus and rectum; K21.9 Gastro-esophageal reflux disease without esophagitis; Z98.84 Bariatric surgery status; F41.1 Generalized anxiety disorder; Z23 Encounter for immunization

== ENCOUNTER → 2023-12-09 15:16 | Outpatient (BNVA) | payer OTHER, SELFPAY | PROVIDERS: PCP Internal Medicine; Visit Provider Internal Medicine | DX: Z23 Encounter for immunization (principal); D50.9 Iron deficiency anemia, unspecified; K62.5 Hemorrhage of anus and rectum; K21.9 Gastro-esophageal reflux disease without esophagitis; F41.1 Generalized anxiety disorder; Z98.84 Bariatric surgery status | CPT/HCPCS: 90471; 90656; 99212 ==

== ENCOUNTER 2024-02-29 09:49 | Day surgery (SDC) | payer OTHER, SELFPAY ==
--- NOTE | 2024-02-29 10:12 | MHC.SHP ---
Pre-Procedural Eval Section A - 24 Hr Update-Section A only Date of Service: 02/29/24 Section B - Complete if H&P > 30 days Chief Complaint: GERD, gastritis, rectal bleeding Details of Present Illness: Medical History MDD (major depressive disorder), recurrent episode, moderate Generalized anxiety disorder Annual physical exam Anemia BMI 34.0-34.9,adult GERD (gastroesophageal reflux disease) Vitamin B12 deficiency Anemia Back pain Tinea versicolor Family history of breast cancer Vitamin D deficiency Surgical History S/P laparoscopic sleeve gastrectomy History of sleeve gastrectomy Acute meniscal tear of right knee History of cholecystectomy Allergies: Allergies Allergy/AdvReac Type Severity Reaction Status Date / Time No Known Allergies Allergy Verified 12/09/23 15:25 [No Known Allergies*] Review of Systems Review of Systems Comment: Ten point ROS negative Exam Exam Comment: Gen appear: No acute distress HEENT: no icterus Chest: No overt resp distress Abd: soft, nontender, nondistended Psych: Stable affect, answering questions appropriately Neuro: A/Ox3 noted to move all extremities spontaneously Ext: no peripheral edema Plan Diagnosis/Plan: Unchanged I have reviewed the history and physical and performed a pertinent physical examination on my patient. No changes have occurred unless specified. Time Spent With Patient Time: Total time managing care of this patient today ____ minutes.
[2024-02-29 10:58] VITALS: BMI 28.0
[2024-02-29 11:03] VITALS: BP 104/71; PULSE 81; RESP 16; TEMP 36.9; O2SAT 100
--- NOTE | 2024-02-29 11:05 | HO.ANESPROP2 ---
Documented by User: Wendy Motley NP 02/28/24 11:02 HPI - Anesthesia Eval Consult details Narrative: 34yo F for Upper Endoscopy and Colonoscopy PMF Active Problems Active Problems: All Active Problems Generalized anxiety disorder (Acute) S/P laparoscopic sleeve gastrectomy (Acute) Pre-op examination (Acute) Rectal bleeding (Acute) Iron deficiency anemia (Chronic) Constipation (Acute) BPPV (benign paroxysmal positional vertigo) (Acute) GERD (gastroesophageal reflux disease) (Acute) Morbid obesity (Acute) Anxiety and depression (Acute) Fibromyalgia (Acute) Past Medical History Medical History (Updated 12/09/23 @ 16:13 by Dylan Jeter MD) Generalized anxiety disorder MDD (major depressive disorder), recurrent episode, moderate Annual physical exam Anemia BMI 34.0-34.9,adult GERD (gastroesophageal reflux disease) Vitamin B12 deficiency Anemia Back pain Tinea versicolor Family history of breast cancer Vitamin D deficiency Family History Family History (Updated 12/09/23 @ 15:40 by CAROLEE Knight) Maternal Grandfather Myocardial infarct Mother Breast cancer Maternal Grandmother Breast cancer Maternal Aunt Breast cancer Multiple myeloma Maternal Grandfather Colon cancer Maternal Uncle Substance abuse Father No problems noted. Sister Arthritis Other Mental health disorder Family history of problems with anesthesia: No Surgical History Surgical History (Updated 12/09/23 @ 16:07 by Dylan Jeter MD) S/P laparoscopic sleeve gastrectomy History of sleeve gastrectomy Acute meniscal tear of right knee History of cholecystectomy History of Problems with Anesthesia: No Social History Social History Household Members: Family Housing: Apartment Are you a primary direct care professional to a significant other at home: No Do you presently have visiting nurse or other home services: No Alcohol intake: never Patient Tobacco Use Status: Never used Tobacco e-Cigarette/Vaping Use: Never Used Second Hand Smoke Exposure: No Use of substances other than those prescribed or required for medical reasons: No Are you DNR?: No Advance Directives: No Advance Directives Information Provided: Yes Advance Directives on File: No Recently lost weight without trying: No Nutrition Risks: No Nutritional Risk service: No Current occupational status: employed Cognitive needs: No Hearing needs: No Vision needs: Yes (Glasses) Meds Allergies Allergy/AdvReac Type Severity Reaction Status Date / Time No Known Allergies Allergy Verified 12/09/23 15:25 [No Known Allergies*] Home Medications ?Medication ?Instructions ?Recorded ?Confirmed ?Last Taken ?Type hydroxyzine HCl 25 mg tablet 25 mg PO TID 07/23/23 09/21/23 Unknown History trazodone 50 mg tablet 50 mg PO BEDTIME 07/23/23 09/21/23 Unknown History venlafaxine 75 mg capsule,extended 75 mg PO DAILY 07/23/23 09/21/23 Unknown History release 24 hr Assessment and Plan Assessment Anesthesia Assessment: Chart Reviewed Final Anesthetic Review Family History of Problems with Anesthesia: No History of Problems with Anesthesia: No Documented by User: Marisa Tucker DO 02/29/24 11:06 [facility] Past Medical History Medical History (Updated 12/09/23 @ 16:13 by Dylan Jeter MD) Generalized anxiety disorder MDD (major depressive disorder), recurrent episode, moderate Annual physical exam Anemia BMI 34.0-34.9,adult GERD (gastroesophageal reflux disease) Vitamin B12 deficiency Anemia Back pain Tinea versicolor Family history of breast cancer Vitamin D deficiency Family History Family History (Updated 12/09/23 @ 15:40 by CAROLEE Knight) Maternal Grandfather Myocardial infarct Mother Breast cancer Maternal Grandmother Breast cancer Maternal Aunt Breast cancer Multiple myeloma Maternal Grandfather Colon cancer Maternal Uncle Substance abuse Father No problems noted. Sister Arthritis Other Mental health disorder Family history of problems with anesthesia: No Surgical History Surgical History (Updated 12/09/23 @ 16:07 by Dylan Jeter MD) S/P laparoscopic sleeve gastrectomy History of sleeve gastrectomy Acute meniscal tear of right knee History of cholecystectomy History of Problems with Anesthesia: No Social History Social History Household Members: Family Housing: Apartment Are you a primary direct care professional to a significant other at home: No Do you presently have visiting nurse or other home services: No Alcohol intake: never Patient Tobacco Use Status: Never used Tobacco e-Cigarette/Vaping Use: Never Used Second Hand Smoke Exposure: No Use of substances other than those prescribed or required for medical reasons: No Are you DNR?: No Advance Directives: No Advance Directives Information Provided: Yes Advance Directives on File: No Recently lost weight without trying: No Nutrition Risks: No Nutritional Risk service: No Current occupational status: employed Cognitive needs: No Hearing needs: No Vision needs: Yes (Glasses) Meds Allergies Allergy/AdvReac Type Severity Reaction Status Date / Time No Known Allergies Allergy Verified 12/09/23 15:25 [No Known Allergies*] Home Medications ?Medication ?Instructions ?Recorded ?Confirmed ?Last Taken ?Type hydroxyzine HCl 25 mg tablet 25 mg PO TID 07/23/23 09/21/23 Unknown History trazodone 50 mg tablet 50 mg PO BEDTIME 07/23/23 09/21/23 Unknown History venlafaxine 75 mg capsule,extended 75 mg PO DAILY 07/23/23 09/21/23 Unknown History release 24 hr Exam Exam Date and Time: 02/29/24 1105 Height,Weight and Vital Signs: Height 5 ft 3 in Weight 71.668 kg Vital Signs Temperature 98.4 F 02/29/24 11:03 Pulse Rate 81 02/29/24 11:03 Respiratory Rate 16 02/29/24 11:03 Blood Pressure 104/71 02/29/24 11:03 Pulse Oximetry 100 02/29/24 11:03 Oxygen Delivery Method Room Air 02/29/24 11:03 Temperature 98.4 F 02/29/24 11:03 Pulse Rate 81 02/29/24 11:03 Respiratory Rate 16 02/29/24 11:03 Blood Pressure 104/71 02/29/24 11:03 Pulse Oximetry 100 02/29/24 11:03 Oxygen Delivery Method Room Air 02/29/24 11:03 Airway Mallampati Class: I TM Dist: >3cm Neck ROM: Full Loose/Missing/Broken Teeth: No (patient denies any loose or broken teeth) Heart: S1S2 Lungs: CTAB Assessment and Plan Assessment Anesthesia Assessment: Anesthesia Plan Discussed and Chart Reviewed Final Anesthetic Review Family History of Problems with Anesthesia: No History of Problems with Anesthesia: No NPO: Yes ASA Class: II Final Preanesthetic Review: No Changes in Pt Med Stat, Meds/Allgs Chart Reviewed, Consent Obtained/Reviewed and Anes Risks/Benef Reviewed Patient Risk: Low Procedure Risk: Low Anesthetic Plan Anesthetic Plan: MAC: and Agree w/ Assess. and Plan Disposition: Standard PACU
[2024-02-29 11:09] LABS: UPreg QC Valid YES; Urine Pregnancy NEGATIVE (NEGATIVE)
[2024-02-29] MEDS: Lactated Ringers 1,000 ML 100 ML IVCONT (11:14)
[2024-02-29 12:50] VITALS: BP 82/55; PULSE 93; RESP 18; TEMP 36.6; O2SAT 98
--- NOTE | 2024-02-29 12:51 | P.OPN-COLO_ITS ---
Colonoscopy Operative Note Operative Note Date of Service: 02/29/24 Narrative: Procedure: Upper endoscopy and colonoscopy Indication: Abd pain, gastritis, hemorrhoids Endoscopist: Casie Rose MD Anesthesia Provider: Amandeep Hutchinson MD Anesthesia type: MAC Instrument: [id number] and [id number] EGD Procedure:?? The procedure, indications, preparation and potential complications were reviewed with the patient, who indicated understanding and gave written informed consent to proceed. The endoscope was introduced through the mouth, and advanced to the 2nd part of the duodenum. The mucosa was carefully examined on slow withdrawal of the endoscope. The patient tolerated the procedure well. There were no immediate complications.? EGD Findings:? * Esophagus:? Normal esophageal mucosa was noted. The Z-line was at 35 cm. Cold forceps biopsies were taken from middle and lower esophagus to rule out eosinophilic esophagitis. * Stomach:? Normal gastric mucosa. Retroflexion was performed in the cardia. Random cold forceps biopsies were taken from the stomach. * Duodenum:? Normal duodenal mucosa. Cold forceps biopsies were taken from the duodenal bulb and 2nd portion of the duodenum to rule out celiac sprue. Colonoscopy Procedure:? The patient was then turned for the colonoscopy. A digital rectal exam was performed which was normal.? The colonoscope was then inserted through the anus and advanced through the colon and advanced to the cecum at 75 cm and terminal ileum.? Appendiceal orifice and ileocecal valve were identified. Mucosa was carefully examined under high definition white light as the instrument was slowly withdrawn in a retrograde panoramic fashion. Retroflexion was performed in rectum. The procedure was not difficult. The quality of the prep was BBPS: 2+2+2 = adequate Withdrawal time 6 minutes Limitations: No limitations Findings: Mucosa: Normal colon and terminal ileum mucosa. Protruding lesions: * Medium internal hemorrhoids without stigmata of recent bleeding. Impression: 1. Normal esophagus (biopsy) 2. Normal stomach (biopsy) 3. Normal duodenum (biopsy) 4. Normal colon and terminal ileum mucosa (biopsy) 5. Internal hemorrhoids Recommendations:?? * Follow-up path results * Avoid NSAIDs * Asymptomatic colorectal ca screening to begin at 45 y.o
[2024-02-29 13:05] VITALS: BP 106/68; PULSE 89; RESP 18; TEMP 36.6; O2SAT 100
== END 2024-02-29 13:36 | disposition home or self-care (01) ==
PROVIDERS: Nurse Practitioner; PCP Internal Medicine; Visit Provider Internal Medicine
PROC: (CPT 45378; principal; 2024-02-29 12:50)
DX: K64.8 Other hemorrhoids (principal); K59.00 Constipation, unspecified; K29.50 Unspecified chronic gastritis without bleeding; K21.9 Gastro-esophageal reflux disease without esophagitis; D50.9 Iron deficiency anemia, unspecified; Z90.49 Acquired absence of other specified parts of digestive tract
CPT/HCPCS: 45378; 43239; 81025; 88305; 88342; J2003; J2704

== ENCOUNTER → 2024-02-29 09:49 | Outpatient (BNV) | payer OTHER, SELFPAY | PROVIDERS: PCP Internal Medicine; Visit Provider Internal Medicine | DX: K59.00 Constipation, unspecified (principal); K64.8 Other hemorrhoids; K21.9 Gastro-esophageal reflux disease without esophagitis; K29.70 Gastritis, unspecified, without bleeding | CPT/HCPCS: 43239; 45378 ==

== ENCOUNTER 2024-03-10 11:31 | Outpatient (AMB) | payer OTHER, SELFPAY ==
--- NOTE | 2024-03-10 11:33 | MHC.OFFVIS ---
Vital Signs 03/10/24 11:34 Height 5 ft 3 in Weight 160 lb BMI 28.3 BP 109/73 Blood Pressure Location Lt brachial Position Sitting Pulse 89 Intake Visit Reasons: Follow up EGD/colonoscopy Intake Note: Patient in office today in follow up s/p EGD and colonoscopy. CC: Pt c/o constipation even though she is taking the Linzess. 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 She is going through some mental health problems because of insurance lapse and medication lapse, but she has her meds now and is being followed closely. Has not yet heard re: colonoscopy. Return office visit in 3 months to make sure she has a colonoscopy and make sure her constipation remains stabilized. EGD/COLONOSCOPY EGD Findings:? Esophagus:? Normal esophageal mucosa was noted. The Z-line was at 35 cm. Cold forceps biopsies were taken from middle and lower esophagus to rule out eosinophilic esophagitis. Stomach:? Normal gastric mucosa. Retroflexion was performed in the cardia. Random cold forceps biopsies were taken from the stomach. Duodenum:? Normal duodenal mucosa. Cold forceps biopsies were taken from the duodenal bulb and 2nd portion of the duodenum to rule out celiac sprue. Findings: Mucosa: Normal colon and terminal ileum mucosa. Protruding lesions: Medium internal hemorrhoids without stigmata of recent bleeding.Impression: 1. Normal esophagus (biopsy) 2. Normal stomach (biopsy) 3. Normal duodenum (biopsy) 4. Normal colon and terminal ileum mucosa (biopsy) 5. Internal hemorrhoids Recommendations:?? Follow-up path results Avoid NSAIDs Asymptomatic colorectal ca screening to begin at 45 BIOPSY Received: 02/29/24 Diagnosis A. Duodenum, biopsy: Duodenal mucosa with preserved villi and no specific change. B. Stomach, random, biopsy: Gastric antral mucosa with minimal chronic inactive gastritis; negative for H. pylori, intestinal metaplasia and dysplasia. C. Esophagus, lower, biopsy: Squamous mucosa with no specific change; no columnar mucosa present. D. Esophagus, middle, biopsy: Squamous mucosa with no specific change; no columnar mucosa present TODAYS VISIT She is agreeable to repeat colonoscopy at age 45. The procedure was well tolerated. The results were explained and the patient is agreeable to the follow-up interval as stated. The bowel pattern has returned to normal. Education was provided to tell any 1st degree relatives about their findings to be sure that they are screened by age 45. Educated that they will be put on a recall list when it is time for their repeat scope but should they move out of state or away from the hospital they will need to remember along with their primary to repeat the procedure in a timely fashion to avoid any adverse complications. She continues to have trouble with hemorrhoids. Her bowel movements are incredibly painful even though the Linzess is helping her a great deal. She says that she has treated these in the past with creams but it shrinks them back but as soon as she has a bowel movement they swell up again and causes her pain. Even with the Linzess the initial part of the movement tends to be hard with softer stool behind it. Sometimes this is an indication that are dose is not high enough to produce a soft enough stool. Will try increasing her from 72 micro g 245 micro g and titrate to affect her side effect. We did discuss the possibility of hemorrhoid surgery but I know that if the stooling is not appropriately controlled the surgeons are reluctant to perform this as then the veins will just swell again and the problem will not be resolved. However, once the stool is sufficiently soft we can certainly reconsider this. Return office visit next available. [facility] Medical History (Updated 03/10/24 @ 12:02 by LUDWIN Angel) Pre-op examination Generalized anxiety disorder MDD (major depressive disorder), recurrent episode, moderate Annual physical exam Anemia BMI 34.0-34.9,adult GERD (gastroesophageal reflux disease) Vitamin B12 deficiency Anemia Back pain Tinea versicolor Family history of breast cancer Vitamin D deficiency Surgical History (Updated 03/10/24 @ 12:02 by LUDWIN Angel) S/P laparoscopic sleeve gastrectomy History of esophagogastroduodenoscopy (EGD) H/O colonoscopy History of sleeve gastrectomy Acute meniscal tear of right knee History of cholecystectomy Family History Maternal Grandfather Myocardial infarct Mother Breast cancer Maternal Grandmother Breast cancer Maternal Aunt Breast cancer Multiple myeloma Maternal Grandfather Colon cancer Maternal Uncle Substance abuse Father No problems noted. Sister Arthritis Other Mental health disorder Social History Household Members: Family Housing: Apartment Are you a primary continuum of care manager to a significant other at home: No Do you presently have visiting nurse or other home services: No Alcohol intake: never Patient Tobacco Use Status: Never used Tobacco e-Cigarette/Vaping Use: Never Used Second Hand Smoke Exposure: No service: No Current occupational status: employed Cognitive needs: No Hearing needs: No Vision needs: Yes (Glasses) Review of Systems Const Denies fatigue, Denies fever(s), Denies night sweats, Denies poor appetite and Denies weight loss Eyes Details: glasses Reports requires corrective lenses ENT Reports Normal hearing present, Denies dental pain, Denies dysphagia, Denies hearing loss, Denies mouth pain, Denies odynophagia, Denies throat swelling, Denies tongue swelling and Reports other (Dentition adequate) Card Reports no additional complaints Resp Reports no additional complaints GI Details: rectal pain Denies abdominal pain, Denies melena, Denies bloating, Reports hematochezia, Reports constipation, Denies GI cramping, Denies dysphagia, Denies excessive flatus, Denies early satiety, Denies heartburn, Denies diarrhea, Denies nausea, Denies odynophagia, Denies vomiting and Denies hematemesis Skin/Breast Denies pruritus, Denies lesions, Denies rash and Denies jaundice Neuro Reports Normal hearing present and Denies Abnormal speech present Endo Denies fatigue Aller/Immun Denies throat swelling and Denies tongue swelling Physical Exam Vital Signs: Last Vital Signs Pulse 89 03/10/24 11:34 BP 109/73 03/10/24 11:34 BMI result Body Mass Index 28.3 Const General: cooperative, no acute distress, well developed and well groomed Nutritional Appearance: average body habitus and well nourished Orientation/consciousness: oriented to person, oriented to place and oriented to time Limitations: No language barrier HEENT Head: Yes normocephalic and Yes atraumatic Eyes General: appearance normal, both eyes and all related structures Pupils: Equal, round and reactive pupils present Neck Neck: Yes normal visual inspection and Yes no lymphadenopathy Thyroid: Thyroid normal Resp Effort & Inspection: normal respiratory effort and able to speak in complete sentences Auscultation: clear to auscultation bilaterally Cardio Rate: regular rate Rhythm: regular rhythm Heart sounds: Normal, physiologic split S2 sound present Peripheral pulses: radial pulses present and posterior tibial pulses present GI Inspection: No distended and No Abdominal panniculus present Palpation (GI): Soft to palpation, nontender, no guarding, not rigid and No hepatosplenomegaly present Percussion: Yes normal to percussion Auscultation: normal bowel sounds Rectal Exam - Female: deferred Skin General skin exam: no rashes or lesions noted, turgor normal, skin not dry, no jaundice, No spider nevi and no striae Rashes: no rashes Nails: normal Neuro General: oriented to person, oriented to place and oriented to time Cranial nerves: Yes Equal, round and reactive pupils present and Yes Normal hearing present Speech: No Abnormal speech present Extrem General: Yes normal to inspection, No clubbing, No cyanosis and No edema Psych Appearance: grossly normal and well kempt Mental Status: mental status grossly normal Speech and movement: Normal speech and movement present Affect: normal affect Attitude: cooperative Thought process: Normal thought process present and not confabulating Thought content: Normal thought content present Insight: Fair insight present (Psych) Judgement: Fair judgement present (Psych) Assessment & Plan Assessment & Plan (1) Constipation: Code(s): K59.00 - Constipation, unspecified Category: Medical (2) GERD (gastroesophageal reflux disease): Code(s): K21.9 - Gastro-esophageal reflux disease without esophagitis Category: Medical (3) Rectal bleeding: Code(s): K62.5 - Hemorrhage of anus and rectum Category: Medical (4) Bleeding hemorrhoid: Code(s): K64.9 - Unspecified hemorrhoids Category: Medical Plan She is agreeable to repeat colonoscopy at age 45. The procedure was well tolerated. The results were explained and the patient is agreeable to the follow-up interval as stated. The bowel pattern has returned to normal. Education was provided to tell any 1st degree relatives about their findings to be sure that they are screened by age 45. Educated that they will be put on a recall list when it is time for their repeat scope but should they move out of state or away from the hospital they will need to remember along with their primary to repeat the procedure in a timely fashion to avoid any adverse complications. She continues to have trouble with hemorrhoids. Her bowel movements are incredibly painful even though the Linzess is helping her a great deal. She says that she has treated these in the past with creams but it shrinks them back but as soon as she has a bowel movement they swell up again and causes her pain. Even with the Linzess the initial part of the movement tends to be hard with softer stool behind it. Sometimes this is an indication that are dose is not high enough to produce a soft enough stool. Will try increasing her from 72 micro g 245 micro g and titrate to affect her side effect. We did discuss the possibility of hemorrhoid surgery but I know that if the stooling is not appropriately controlled the surgeons are reluctant to perform this as then the veins will just swell again and the problem will not be resolved. However, once the stool is sufficiently soft we can certainly reconsider this. Return office visit next available. Medications: New linaclotide (Linzess) Take first thing in the morning with a full glass of water. 145 mcg PO QAM 30 caps 3RF K58.1 - Irritable bowel syndrome with constipation On Hold linaclotide (Linzess) Hold Comment: Doctor's Order 72 mcg PO QAM 30 caps 3RF K59.00 - Constipation, unspecified Coding Level of Care Code Est Pt Level 3 (25700) Diagnoses Constipation K59.00 GERD (gastroesophageal reflux disease) K21.9 Rectal bleeding K62.5 Bleeding hemorrhoid K64.9
[2024-03-10 11:34] VITALS: BP 109/73; PULSE 89; BMI 28.3
== END 2024-03-10 12:01 | disposition home or self-care (01) ==
PROVIDERS: PCP Internal Medicine; Visit Provider Nurse Practitioner
DX: K59.00 Constipation, unspecified (principal); K21.9 Gastro-esophageal reflux disease without esophagitis; K62.5 Hemorrhage of anus and rectum; K64.9 Unspecified hemorrhoids
CPT/HCPCS: 99213

== ENCOUNTER → 2024-03-10 11:31 | Outpatient (BNVA) | payer OTHER, SELFPAY | PROVIDERS: PCP Internal Medicine; Visit Provider Nurse Practitioner | DX: K21.9 Gastro-esophageal reflux disease without esophagitis (principal); K59.00 Constipation, unspecified; K62.5 Hemorrhage of anus and rectum; K64.9 Unspecified hemorrhoids | CPT/HCPCS: 99212 ==

== ENCOUNTER 2024-04-27 13:05 | Outpatient (AMB) | payer OTHER, SELFPAY ==
[2024-04-27 13:16] VITALS: BP 108/70; PULSE 101; TEMP 36.5; O2SAT 98; BMI 29.6
--- NOTE | 2024-04-27 13:16 | A.OFFPC_ITS ---
Vital Signs 04/27/24 13:16 Height 5 ft 3 in Weight 167 lb 4 oz BMI 29.6 BP 108/70 Blood Pressure Location Lt brachial Position Sitting Pulse 101 H Pulse Source Pulse Oximeter Temp 97.7 F Temp Source Temporal Artery Scan Pulse Oximetry (%) 98 Oxygen Delivery Method Room Air Intake Visit Reasons: Annual Exam Intake Note: Patient is here today for a physical. Boat Puller Required: No Accompanied by: Self / Same As Patient Is last menstrual period known: Yes Last menstrual period: 03/25/24 Allergies No Known Allergies [No Known Allergies*] Allergy (Verified 04/27/24 13:26) Medication List - Last Reconciled 04/27/24 by Dylan Jeter MD clonazepam 0.5 mg PO DAILY ferrous fumarate 324 mg PO .once a week hydroxyzine HCl 25 mg PO TID PRN linaclotide (Linzess) 145 mcg PO QAM melatonin 10 mg PO BEDTIME PRN trazodone 50 mg PO BEDTIME venlafaxine ER 150 mg PO DAILY Tobacco use date assessed: 04/27/24 Dental Screening Dental Screen Date: 04/27/24 Did you have a dental visit in the last 12 months?: Yes Did you have a dental problem in the last 6 months where you did not have access to dental care?: No Was dental information given to patient?: Patient has dentist HPI Annual Exam HPI Details The patient is a 34-year-old female presenting with knee pain. She has a history of meniscus repair conducted years ago in [place]. She reports recent onset of significant weakness and pain in the knee, exacerbated by attempts to apply pressure or stand on it. The pain has progressed from slight discomfort to a level where it prevents normal knee function. There is no history of trauma, falls, or direct injury to the knee. The patient notes that this issue is affecting her contralateral knee due to compensatory pressure. Previously, she has not experienced any similar symptoms of knee weakness following her surgery until now. In addition to orthopedic evaluation, she has considered physical therapy for knee strengthening. The patient also has a significant medical history that includes fibromyalgia, gastroesophageal reflux disease, generalized anxiety disorder, and iron deficiency anemia. She underwent a laparoscopic sleeve gastrectomy in 2020 with follow-up for bariatric surgery. Gastroenterology reviews showed normal esophagogastroduodenoscopy with internal hemorrhoids in a recent colonoscopy. Hematology follow-up for her iron deficiency shows improved blood counts with weekly iron supplementation, but persistent low vitamin D levels. - Blood work conducted in July 2023 showe d normal cholesterol levels but low vitamin D. - Last blood count improved post iron watkins pplementation. - Recent eye exam in March indicates s upervision for potential glaucoma, with increased intraocular pressure. - Consistent utilization of melatonin fo r sleep management. - Encouraged to continue diet and exerci se plans from bariatric surgery follow- ups. - Advised to get flu shots due to curren t high flu activity. - Recommended to avoid exposure to COVID -19, RSV, and norovirus. - Non-smoker and does not consume alcoho l or recreational drugs. - Engages in regular hydro-therapy and m edication for anxiety; includes hydroxyzine, clonazepam, trazodone, and venlafaxine. - Integrates low activity as she prefers home-based routine, mainly due to seasonal constraints. - Reports active household engagement, i ncluding decorating and other physical chores. - Notes bothersome allergies and utilize s Benadryl and Claritin as needed. - Musculoskeletal: Reports knee pain and weakness; denies any recent falls or trauma. - Ears, Nose, Throat: Denies swallowing difficulties; reports recent exacerbation of allergies. - Cardiovascular: Denies chest pain or d izziness. - Respiratory: Denies shortness of breat h. - Gastrointestinal: Reports frequent uri nation at night; denies heartburn since gallbladder removal. - Genitourinary: Denies symptoms of urge ncy beyond nocturia. - Neurological: Denies dizziness, fainti ng, or chest pain. - Hematological: No recent symptoms of a nemia post treatment. - Labs: Normal complete blood count; iro n levels improved with supplementation. Persistently low vitamin D noted. - Imaging: X-ray of the right knee advis ed for further evaluation (not yet conducted). [facility] Medical History (Updated 04/27/24 @ 13:53 by Dylan Jeter MD) Annual physical exam Pre-op examination Generalized anxiety disorder MDD (major depressive disorder), recurrent episode, moderate Anemia BMI 34.0-34.9,adult GERD (gastroesophageal reflux disease) Vitamin B12 deficiency Anemia Back pain Tinea versicolor Family history of breast cancer Vitamin D deficiency Surgical History (Updated 04/27/24 @ 13:46 by Dylan Jeter MD) S/P laparoscopic sleeve gastrectomy History of esophagogastroduodenoscopy (EGD) H/O colonoscopy History of sleeve gastrectomy Acute meniscal tear of right knee History of cholecystectomy Family History Maternal Grandfather Myocardial infarct Mother Breast cancer Maternal Grandmother Breast cancer Maternal Aunt Breast cancer Multiple myeloma Maternal Grandfather Colon cancer Maternal Uncle Substance abuse Father No problems noted. Sister Arthritis Other Mental health disorder Social History Household Members: Family Housing: Apartment Are you a primary neonatal intensive care unit nurse to a significant other at home: No Do you presently have visiting nurse or other home services: No Alcohol intake: never Patient Tobacco Use Status: Never used Tobacco e-Cigarette/Vaping Use: Never Used Second Hand Smoke Exposure: No service: No Current occupational status: employed Cognitive needs: No Hearing needs: No Vision needs: Yes (Glasses) Female Reproductive History Menstrual Date of last menstrual period: 03/25/24 Questionnaire PHQ-9 Over the last 2 weeks, how often have you been bothered by any of the following problems? 1. Little interest or pleasure in doing things: not at all 2. Feeling down, depressed, or hopeless: not at all 3. Trouble falling or staying asleep, or sleeping too much: not at all 4. Feeling tired or having little energy: not at all 7. Trouble concentrating on things, such as reading the newspaper or watching television: not at all 8. Moving or speaking so slowly that other people could have noticed. Or the opposite - being so fidgety or restless that you have been moving around a lot more than usual: not at all 9. Thoughts that you would be better off or of hurting yourself in some way: not at all Depression Screening Interpretation: Negative Depression Screening Done: Yes 94838 - PHQ-9 Billing: Yes Source: Developed by Drs. Moses Whaley, Madai Mart, Octaviano Myrick and colleagues, with an educational lindsay from [employer] ([employer] Thrive Questionnaire Date Thrive assessed: 04/27/24 I am a: Patient What is your living situation today?: I have a steady place to live Within the past 12 months, did the food you bought not last and you didn't have the money to get more?: I choose not to answer this question Within the past 12 months, did you worry whether your food would run out before you got money to buy more?: I choose not to answer this question Do you have trouble paying for medicines?: No Do you have trouble getting transportation to medical appointments?: No Do you have trouble paying your heating and electricity bill?: No Do you have trouble taking care of your child, family member or friend?: No Do you have trouble with day-to-day activities such as bathing, preparing meals, shopping, managing finances, etc.?: No Are you currently unemployed and looking for a job?: No Are you interested in more education?: No Please select the resources that you would like help with: None Currently or been in a relationship where the following occur: I choose not to answer THRIVE Score: 0 AUDIT C Alcohol Use Questionnaire (AUDIT-C) 1. How often do you have a drink containing alcohol?: Never 3. How often do you have six or more drinks on one occasion?: Never Total Score: 0 HERRERA-7 AMB Questionnaire HERRERA-7 Date HERRERA - 7 assessed: 04/27/24 Feeling nervous, anxious, or on edge: 0 = Not at all Not being able to stop or control worryin = Not at all Worrying too much about different things: 0 = Not at all Trouble relaxin = Not at all Being so restless that it is hard to sit still: 0 = Not at all Becoming easily annoyed or irritable: 0 = Not at all Feeling afraid as if something awful might happen: 0 = Not at all Total HERRERA-7 score (0-4 normal; 5-9 mild; 10-14 moderate; 15-21 severe): 0 Source: Developed by Drs. Moses Whaley, Madai Mart, Octaviano Myrick and colleagues, with an educational lindsay from [employer] ([employer] HERRERA-7 Assessment Billing HERRERA-7 Assessment Tool: HERRERA-7 Assessment 23203 Review of Systems Const Denies poor appetite and Denies weakness Eyes Denies no additional complaints ENT Reports Normal hearing present, Denies dizziness, Denies nasal congestion, Denies tinnitus and Denies sore throat Card Denies chest pain, Denies syncope, Denies rapid heart rate and Denies dyspnea Resp Denies cough and Denies dyspnea GI Denies change in stool character, Reports constipation, Denies diarrhea, Denies nausea and Denies vomiting Denies urinary frequency, Denies difficulty voiding and Denies dysuria Neuro Reports Normal hearing present, Denies confusion, Denies dizziness, Denies syncope and Denies weakness Psych Denies confusion Physical exam (Primary Care) Vital Signs: Last Vital Signs Temp 97.7 F 04/27/24 13:16 Pulse 101 H 04/27/24 13:16 BP 108/70 04/27/24 13:16 Pulse Ox 98 04/27/24 13:16 Oxygen Delivery Method Room Air 04/27/24 13:16 BMI result Body Mass Index 29.6 Tobacco/Smoking Status: Tobacco use Status Tobacco use date assessed 04/27/24 04/27/24 13:30 Patient Tobacco Use Status Never used Tobacco 04/27/24 13:17 e-Cigarette/Vaping Use Never Used 04/27/24 13:17 Depression Screening Interpretation: Negative Thrive Assessment: Date of Thrive Assessment Date Thrive assessed 04/27/24 04/27/24 13:30 Currently or been in a relationship where the following occur: I choose not to answer Const General: No confusion Orientation/consciousness: No confusion HENMT Head: Yes normocephalic Ears: external ears normal and TM's normal bilaterally Face and sinus: Yes normal facial exam Mouth: moist mucous membranes Throat: Yes tonsils normal Eyes Conjunctivae: conjunctivae normal Pupils: Equal, round and reactive pupils present and Pupil accommodation reflex normal Direct Ophthalmoscopy: normal light reflex Neck Neck: No lymphadenopathy Thyroid: Thyroid normal Chest Chest palpation & inspection: normal inspection of the chest Resp Effort & Inspection: normal respiratory effort and no audible wheezes Auscultation: clear to auscultation bilaterally, no crackles, no wheezes and lung sounds not diminished Cardio Rate: regular rate Rhythm: regular rhythm Peripheral pulses: radial pulses present and dorsalis pedis present GI Palpation (GI): no masses Auscultation: normal bowel sounds and normoactive bowel sounds Rectal Exam - Female: deferred Skin General skin exam: no rashes or lesions noted Rashes: no rashes Neuro General: No confusion Cranial nerves: Yes Equal, round and reactive pupils present and Yes Normal hearing present Cognition (Neuro): normal cognition Gait exam (Neuro): Normal gait present Motor exam (neuro): 5/5 motor strength present throughout Deep tendon reflexes (DTR's): Right brachioradialis reflex intensity grade: 2+, Left brachioradialis reflex intensity grade: 2+, Right patellar reflex intensity grade: 2+ and Left patellar reflex intensity grade: 2+ Extrem General: No edema Coding Level of Care Code Est Pt Prev Care 18-39y(55490) Diagnoses Annual physical exam Z00.00 S/P laparoscopic sleeve gastrectomy Z98.84 Overweight (BMI 25.0-29.9) E66.3 GERD (gastroesophageal reflux disease) K21.9 Generalized anxiety disorder F41.1 Right knee pain M25.561 Additional Codes HERRERA-7 Assessment Billing - HERRERA-7 Assessment Tool: HERRERA-7 Assessment 47332 ([id number]) PHQ-9 - 46182 - PHQ-9 Billing: Yes ([id number]) Assessment & Plan Assessment & Plan (1) Annual physical exam: Code(s): Z00.00 - Encounter for general adult medical examination without abnormal findings Category: Medical Plan: Patient is advised to eat healthy, keep well hydrated, keep active and have adequate sleep. (2) S/P laparoscopic sleeve gastrectomy: Comment: November 2020 Code(s): Z98.84 - Bariatric surgery status Category: Surgical Plan: Continue with bariatric surgery followups (3) Overweight (BMI 25.0-29.9): Code(s): E66.3 - Overweight Category: Medical Plan: Continue with diet and exercise (4) GERD (gastroesophageal reflux disease): Code(s): K21.9 - Gastro-esophageal reflux disease without esophagitis Category: Medical Plan: Avoid the foods that causes that usually spicy foods, tomato products, juices, coffee, soda and foods that your sensitive to. After eating do not lie down, allow 3-4 hours before in lie down. And keep the head of bed above 30 degrees to avoid the acid from going up. (5) Generalized anxiety disorder: Comment: CHD, therapist 2x a week , RX once a month Code(s): F41.1 - Generalized anxiety disorder Category: Medical Plan: Continue with counseling and therapy on hydroxyzine clonazepam trazodone and venlafaxine. (6) Right knee pain: Code(s): M25.561 - Pain in right knee Category: Medical Plan - Follow up with physical therapy for targeted knee strengthening exercises. - Referral to orthopedics for detailed knee evaluation, particularly seeing increased pain and weakness. - Continue current medication regimen with regular monitoring for anemia and anxiety management. - Follow up on screening for potential glaucoma in the forthcoming summer. - Advice on consistent dietary vitamin D supplementation to address deficiency. I discussed with the patient the probable exacerbation of knee joint issues, considering her previous meniscus repair and recent symptoms. We reviewed the benefits of physical therapy and obtaining an X-ray to determine further orthopedic intervention. The consultation touched upon solidifying her iron supplementation plan, particularly noting improved levels, and we emphasized the importance of continuing to monitor for anemia. As part of her routine health maintenance, I outlined the next steps for her glaucoma watch and reminded them of the significance of flu vaccinations amidst a highly active season. Discussions also included explanations of gastrointestinal symptoms in context with GERD management, reassurance given to her benign screening results, and adherence to bariatric consultation follow-ups. Risks and benefits of each management pathway chosen were explained, ensuring patient understanding and agreement. - Schedule appointments for knee X-ray and subsequent orthopedic consultation. - Resume prescribed physical therapy exercises for knee strengthening. - Continue iron supplementation and monitor symptoms of anemia. - Maintain regular use of prescribed medications. - Obtain fasting blood work within three months, as planned. - Follow eye care guidance regarding potential glaucoma. - Adhere to diet, exercise, and lifestyle recommendations from bariatric follow- up. - Maintain precautions during flu/cold season to minimize infection risks. Orders: Orders XR knee RT 2V Today M25.561 - Pain in right knee Comprehensive Met. Panel Today D50.9 - Iron deficiency anemia, unspecified Ferritin Today D50.9 - Iron deficiency anemia, unspecified Free T4 (Free Thyroxine) Today D50.9 - Iron deficiency anemia, unspecified Lipid Panel Today D50.9 - Iron deficiency anemia, unspecified, E78.00 - Pure hypercholesterolemia, unspecified UA CC w/rflx Micro + Cult Today D50.9 - Iron deficiency anemia, unspecified, R30.0 - Dysuria Vitamin B12 and Folate Today D50.9 - Iron deficiency anemia, unspecified IRON PROFILE Today D50.9 - Iron deficiency anemia, unspecified Reticulocyte Count Today D50.9 - Iron deficiency anemia, unspecified Vitamin B1 Today D50.9 - Iron deficiency anemia, unspecified Vitamin A Today D50.9 - Iron deficiency anemia, unspecified PT Evaluation and Treatment Today M25.561 - Pain in right knee Complete Blood Count Auto Diff Today D50.9 - Iron deficiency anemia, unspecified Thyroid Stimulating Hormone Today D50.9 - Iron deficiency anemia, unspecified Vitamin D 25-OH Total Today D50.9 - Iron deficiency anemia, unspecified Hemoglobin A1c Today D50.9 - Iron deficiency anemia, unspecified
--- OUTSIDE RECORDS SUMMARY | 2024-04-27 14:00 | XMS_ITS | Clinical Summary ---
Author Organization [employer] Address [address] [place] [address] Care Team Providers Care Cotton Converter Name Role Phone Unavailable Primary Care Provider Unavailabl e Social History Tobacco Use Types Packs/Day Years Used Date Smoking Tobacco: Never Assessed Comments Unknown Sex and Gender Information Value Date Recorded Sex Assigned at Female 01/05/2022 10:14 AM EDT Legal Sex Female 10:14 AM EDT Gender Identity Not on file Sexual Orientation Not on file Last Filed Vital Signs Vital Sign Reading Time Taken Comments Blood Pressure 120/76 05/23/2019 12:03 AM EDT Pulse 104 05/23/2019 12:03 AM EDT Temperature - - Respiratory Rate - - Oxygen Saturation - - Inhaled Oxygen Concentration - - Weight 103 kg (227 lb 3.2 oz) 05/23/2019 12:03 A M EDT Height 161 cm (5' 3.38 ) 05/23/2019 12:03 AM EDT Body Mass Index 39.76 05/23/2019 12:03 AM EDT Plan of Treatment Health Maintenance Due Date Last Done Comments Depression Screening 1990 Alcohol/Substance Use Screening 2002 Tobacco Screening 2002 Family Planning (PISQ) 2005 DTaP/Tdap/Td Vaccines (1 - Tdap) 2009 Hepatitis B Vaccines (1 of 3 - 19+ 3-dose series) 2009 Pap Smear 2011 Cervical Cancer Screening 02/04/2020 HPV/Cotest 02/04/2020 COVID-19 Vaccine (1 - 2023-2 5 season) 2023 Influenza Vaccine (#1) 2023 Zoster Vaccines (1 of 2) 02/04/2040 RSV Patients and Pa tients Aged 60 years or older (1 - 1-dose 75+ series) 2065 HIB Vaccines Aged Out No longer eligi ble based on patient's age to complete this topic HPV Vaccines Aged Out No longer eligi ble based on patient's age to complete this topic Hepatitis A Vaccines Aged Out No long er eligible based on patient's age to complete this topic IPV Vaccines Aged Out No longer eligi ble based on patient's age to complete this topic Meningococcal Vaccine Aged Out No blanquita graeme eligible based on patient's age to complete this topic Pneumococcal Vaccine: Pediat rics (0 to 5 Years) and At-Risk Patients (6 to 49) Years) Aged Out No longer eligible b ased on patient's age to complete this topic RSV under 20 months Aged Out No longe r eligible based on patient's age to complete this topic Rotavirus Vaccines Aged Out No longer eligible based on patient's age to complete this topic
== END 2024-04-27 14:08 | disposition home or self-care (01) ==
PROVIDERS: PCP Internal Medicine; Visit Provider Internal Medicine
DX: Z00.00 Encounter for general adult medical examination without abnormal findings (principal); Z98.84 Bariatric surgery status; E66.3 Overweight; K21.9 Gastro-esophageal reflux disease without esophagitis; F41.1 Generalized anxiety disorder; M25.561 Pain in right knee

== ENCOUNTER → 2024-04-27 13:05 | Outpatient (BNVA) | payer OTHER, SELFPAY | PROVIDERS: PCP Internal Medicine; Visit Provider Internal Medicine | DX: Z00.00 Encounter for general adult medical examination without abnormal findings (principal); E66.3 Overweight; K21.9 Gastro-esophageal reflux disease without esophagitis; F41.1 Generalized anxiety disorder; M25.561 Pain in right knee; Z98.84 Bariatric surgery status | CPT/HCPCS: 96127; 99395 ==

== ENCOUNTER 2024-06-09 14:10 | Outpatient (RCR) | payer OTHER, SELFPAY ==
--- NOTE | 2024-05-16 17:09 | MHC.PT.EP ---
[facility] [place] Office [place] Office [place] Office [address] Xander Awad [address] [phone] F: [phone] F: [phone] F: [phone] F: [phone] Physical Therapy Plan of Care Date of Evaluation: 05/16/24 Date of Surgery: Diagnosis: R knee pain Assessment: Pt is a 34 y/o female with Hx of R meniscus surgery and sleeve gastrectomy who is referred to PT for eval and treat of pain in R knee. decreased tolerance for walking increased distances, performing squatting activities, negotiating increased number of stairs, walking long distances, performing fitness activities, as well as heavy HH chores secondary to decreased B hip and knee strength, TTP of R patella tendon and joint line, mild genu valgum, largely sedentary lifestyle. Pt is deemed an appropriate candidate to receive skilled PT services to address their physical impairments in order to improve their functional ability. Frequency and Duration: The patient will be seen 2 x/ wk x 4 wks. Short Term Goals: Initiate home program. Improve baseline pain to < 4/10; initial: 5-6/10. Infant Toddler Lead Teacher Goals: I with home program. Pt will improve R knee extension strength by at least 1/2 MMT grade; initial: 4/5 and painful. Improve B hip abd strength by at least 1/2 MMT grade; initial: 4/5 and painful. Pt will improve LEFI outcome by at least 9 points. Pt will be able to tolerate walking 1 mile with at most a little bit of difficulty, initial: quite a bit of difficulty. Treatment Plan: Modalities to reduce pain, spasms and effusion. Manual therapy to restore motion and function. Therapeutic exercise to improve strength and flexibility. Neuromuscular re-education for posture and balance. Therapeutic activities to return to functional activities of daily living. Electronically signed by: Duc Carrasco PT. Please sign and return to therapist. Thank you for your referral.
--- NOTE | 2024-06-09 16:35 | MHC.PT.DC ---
[facility] [place] Office [place] Office [place] Office [address] Xander Awad [address] [facility] [phone] F: [phone] F: [phone] F: [phone] F: [phone] Physical Therapy Discharge Report Diagnosis: R knee pain Date of Surgery: Date of Evaluation: 05/16/24 Date of Discharge: 06/09/24 Treatments to Date: 6 Cancellations to Date: No Shows to Date: Discharge Status: Achieved Goals Improved Function Independent with HEP Discharge Summary: Leia has been an ideal, active, and motivated participant in her therapy in and out of the clinic we are in agreement with DC today as she has met her therapeutic goals, is managed of her symptoms and is I with her home program. Electronically signed by: Duc Carrasco PT. Please sign and return to therapist. Thank you for your referral.
== END 2024-06-09 16:36 | disposition home or self-care (01) ==
LOC: HO.PT 14:10
PROVIDERS: PCP Internal Medicine; Visit Provider Internal Medicine
DX: M25.561 Pain in right knee (principal)
CPT/HCPCS: 97110; 97112; 97161; 97530